=== PATIENT | female | born 1975 | race Caucasian/White ===

== ENCOUNTER 2021-01-05 02:05 | Emergency (ER) | payer OTHER, SELFPAY ==
[2021-01-05 02:10] VITALS: BP 144/74; PULSE 108; RESP 16; TEMP 36.6; O2SAT 98; BMI 39.9
--- NOTE | 2021-01-05 02:18 | XRR_ITS ---
PROCEDURE INFORMATION: Exam: XR Chest Exam date and time: 01/05/2021 2:18 AM Age: 45 years old Clinical indication: Pain; Chest pressure; Patient HX: Chest tightness with tachycardia x 2 days. ; Additional info: Gerard TECHNIQUE: Imaging protocol: XR of the chest. Views: 1 view. COMPARISON: [facility] Chest 2 views 07/24/2017 9:30 AM FINDINGS: Lungs: Mildly hyperaerated lungs consistent with deep inspiratory effort vs reactive airway disease vs mild COPD . Pleural spaces: Unremarkable. No pleural effusion. No pneumothorax. Heart/Mediastinum: Unremarkable. No cardiomegaly. Bones/joints: Unremarkable. XR/XR chest 1V portable [id number] IMPRESSION: Mildly hyperaerated lungs consistent with deep inspiratory effort vs reactive airway disease vs mild COPD .
--- NOTE | 2021-01-05 02:30 | W.ED.ARRPALP ---
HPI - Arrhythmia/Palpitations General: Chief Complaint: Arrhythmia/Palpitations Stated Complaint: heart is racing,chest tightness Time Seen by Provider: 01/05/21 02:19 Source: patient Mode of arrival: ambulatory Limitations: no limitations History of Present Illness: HPI narrative: 45-year-old female states that over the last 2 days she been having some chest tightness along with palpitations. States tonight while laying down her palpitations worsened and she felt anxious and her heart rate was in the 130s. She states that she has been having increased stress she states that she had for family members all of lung cancer 3 years ago while being her sister. She denies any cough or fever. Denies any worsening improving factors. Associated symptoms: Deny nausea or vomiting Review of Systems Const: Denies: fever(s), chills, body aches or change in appetite Eyes: Denies: blurry vision or eye discomfort ENMT: Denies: throat pain or dental pain Card: Reports: chest pain and palpitations Resp: Denies: dyspnea GI: Denies: abdominal pain, nausea, vomiting or diarrhea : Denies: dysuria Musc: Denies: neck pain or back pain Skin/Breast: Denies: rash Neuro: Denies: headache(s) Psych: Denies: depression Diego/Lymph: Denies: easy bruising All/Imm: Denies: urticaria Physical Exam Const: COMMON NORMALS: no acute distress, patient oriented x3 and healthy appearing HENMT: COMMON NORMALS: normocephalic and atraumatic HEAD & SCALP: normocephalic and atraumatic Eye: COMMON NORMALS: Equal, round and reactive pupils present and EOMs intact bilaterally PUPIL: Yes Equal, round and reactive pupils present Neck/C-Spine: COMMON NORMALS: full ROM and supple Chest: COMMONS NORMALS: normal inspection of the chest and normal palpation of entire chest wall Resp: COMMON NORMALS: normal respiratory effort, No retractions, No use of accessory muscles and clear to auscultation bilaterally AUSCULTATION: clear to auscultation bilaterally Cardio: COMMON NORMALS: regular rhythm and No murmurs present (Cardio) RATE: tachycardic RHYTHM: regular rhythm GI: COMMON NORMALS: Normal to inspection, nondistended, normoactive bowel sounds present, Soft to palpation, non-tender and no masses PALPATION: Yes Soft to palpation Extremity: COMMON NORMALS: normal to inspection and full ROM Neuro: COMMON NORMALS: patient oriented x3, moves all extremities and no focal motor deficits Psych: COMMON NORMALS: mental status grossly normal, Normal thought process present and cooperative THOUGHT PROCESS: Normal thought process present Skin: COMMON NORMALS: no rashes or lesions noted and no wounds GENERAL SKIN EXAM: no rashes or lesions noted Course Vital Signs: Vital signs: Vital Signs Temperature 97.8 F 01/05/21 02:10 Pulse Rate 108 H 01/05/21 02:10 Respiratory Rate 16 01/05/21 02:10 Blood Pressure 144/74 01/05/21 02:10 Pulse Oximetry 98 01/05/21 02:10 MDM - Arrhythmia/Palpitations MDM Narrative: Medical decision making narrative: Patient presents here with palpitations could be anxiety. Patient's D-dimer and troponin here are negative. Patient's EKG and x-ray here are normal as well. Has no signs of pulmonary embolism or acute coronary syndrome. She is stable for discharge will place her on Vistaril she is to follow-up with PCP in 3 to 5 days. She is to return if worsening. Lab Data: Labs: Lab Results 01/05/21 01/05/21 01/05/21 Range/Units 02:50 02:50 02:50 WBC 10.4 H (4.0-10.0) 10^3/ uL RBC 4.51 (4.1-5.3) 10^6/u L Hgb 12.2 (11.5-15.3) g/dL Hct 38.1 (37.0-47.0) % MCV 84.5 (81-99) fl MCH 27.1 L (28.0-34.0) pg MCHC 32.0 (30.0-36.0) g/dL RDW 13.0 (12.1-15.1) % Plt Count 342 (130-400) 10^3/c mm MPV 9.2 (7.4-10.4) fL Neut % (Auto) 67.4 % Lymph % (Auto) 23.2 % [place] % (Auto) 5.5 % Eos % (Auto) 3.1 % Baso % (Auto) 0.4 % Neut # (Auto) 7.05 (1.8-7.7) 10^3/u L Lymph # (Auto) 2.4 (0.8-4.8) 10^3/u L [place] # (Auto) 0.6 (0.2-0.9) 10^3/u L Eos # (Auto) 0.3 (0.0-0.8) 10^3/u L Baso # (Auto) 0.0 (0.0-0.1) 10^3/u L Nucleated RBC % (a uto) 0 % Nucleated RBCs # 0.0 /100WBC D-Dimer (0-0.59) ug/mIFE U Sodium 137 (136-145) mmol/L Potassium 3.7 (3.5-5.1) mmol/L Chloride 101 (98-107) mmol/L Carbon Dioxide 22 (22-29) mmol/L Anion Gap 17.7 (5-19) BUN 10 (6-20) mg/dL Creatinine 0.6 (0.5-0.9) mg/dL GFR Calculation 107.6 (90-130) mL/min Glucose 121 H (65-115) mg/dL Calculated Osmolal ity 284 L (285-295) mOsm/k g Calcium 9.1 (8.5-10.5) mg/dL Total Bilirubin 0.9 (0.15-1.2) mg/dL AST 12 (0-32) U/L ALT 13 (0-33) U/L Alkaline Phosphata se 93 (35-105) IU/L Troponin T Baselin e 6 (0-10) ng/L Total Protein 6.8 (6.6-8.7) g/dL Albumin 4.2 (3.5-5.2) g/dL Globulin 2.6 (1.3-4.6) g/dL TSH 3.76 (0.27-4.20) uIU/ mL 01/05/21 Range/Units 02:50 WBC (4.0-10.0) 10^3/ uL RBC (4.1-5.3) 10^6/u L Hgb (11.5-15.3) g/dL Hct (37.0-47.0) % MCV (81-99) fl MCH (28.0-34.0) pg MCHC (30.0-36.0) g/dL RDW (12.1-15.1) % Plt Count (130-400) 10^3/c mm MPV (7.4-10.4) fL Neut % (Auto) % Lymph % (Auto) % [place] % (Auto) % Eos % (Auto) % Baso % (Auto) % Neut # (Auto) (1.8-7.7) 10^3/u L Lymph # (Auto) (0.8-4.8) 10^3/u L [place] # (Auto) (0.2-0.9) 10^3/u L Eos # (Auto) (0.0-0.8) 10^3/u L Baso # (Auto) (0.0-0.1) 10^3/u L Nucleated RBC % (a uto) % Nucleated RBCs # /100WBC D-Dimer 0.53 (0-0.59) ug/mIFE U Sodium (136-145) mmol/L Potassium (3.5-5.1) mmol/L Chloride (98-107) mmol/L Carbon Dioxide (22-29) mmol/L Anion Gap (5-19) BUN (6-20) mg/dL Creatinine (0.5-0.9) mg/dL GFR Calculation (90-130) mL/min Glucose (65-115) mg/dL Calculated Osmolal ity (285-295) mOsm/k g Calcium (8.5-10.5) mg/dL Total Bilirubin (0.15-1.2) mg/dL AST (0-32) U/L ALT (0-33) U/L Alkaline Phosphata se (35-105) IU/L Troponin T Baselin e (0-10) ng/L Total Protein (6.6-8.7) g/dL Albumin (3.5-5.2) g/dL Globulin (1.3-4.6) g/dL TSH (0.27-4.20) uIU/ mL Imaging Data^: CXR: Attestation: I personally reviewed and interpreted this imaging study as follows: Radiologist's impression: [address] [address] XRay Report Signed Patient: Jyoti Magallanes Unit #: [id number] : 1975 Age/Sex: 45 / F ADM Date: 01/05/21 Loc: ER Room/Bed: Attending Dr: Ordering Provider/Ordering MD: Virginia Johnson MD Date of Service: 01/05/21 Procedure(s): XR chest 1V portable [id number] Accession Number(s): [id number] Report Number: [id number] PROCEDURE INFORMATION: Exam: XR Chest Exam date and time: 01/05/2021 2:18 AM Age: 45 years old Clinical indication: Pain; Chest pressure; Patient HX: Chest tightness with tachycardia x 2 days. ; Additional info: Cp TECHNIQUE: Imaging protocol: XR of the chest. Views: 1 view. COMPARISON: [facility] Chest 2 views 07/24/2017 9:30 AM FINDINGS: Lungs: Mildly hyperaerated lungs consistent with deep inspiratory effort vs reactive airway disease vs mild COPD . Pleural spaces: Unremarkable. No pleural effusion. No pneumothorax. Heart/Mediastinum: Unremarkable. No cardiomegaly. Bones/joints: Unremarkable. XR/XR chest 1V portable [id number] IMPRESSION: Mildly hyperaerated lungs consistent with deep inspiratory effort vs reactive airway disease vs mild COPD . Dictated By: Antony Ortega MD Signed By: Antony Ortega MD Signed Date/Time: 01/05/21309 DD/ 0309 EKG Data^: EKG 1: Attestation: I personally reviewed and interpreted this EKG as follows: EKG interpretation date: 01/05/21 EKG interpretation time: 02:18 Interpretation: nsr hr [address] or t wave abnormalties qrs 78 qtc 385 Other EKG comments: Chest X-Ray 01/05/21 02:18 IMPRESSION: Mildly hyperaerated lungs consistent with deep inspiratory effort vs reactive airway disease vs mild COPD . 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
[2021-01-05 02:54] LABS: Basophils % 0.4 %; Eosinophils # 0.3 10^3/uL (0.0-0.8); Eosinophils % 3.1 %; Hematocrit 38.1 % (37.0-47.0); Hemoglobin 12.2 g/dL (11.5-15.3); Lymphocytes # 2.4 10^3/uL (0.8-4.8); Lymphocytes % 23.2 %; Mean Corpuscular Hemoglobin 27.1 pg (28.0-34.0); Mean Corpuscular Volume 84.5 fl (81-99); Mean Platelet Volume 9.2 fL (7.4-10.4); Monocytes # 0.6 10^3/uL (0.2-0.9); Monocytes % 5.5 %; Neutrophils # 7.05 10^3/uL (1.8-7.7); Neutrophils % 67.4 %; Nucleated Red Blood Cells % 0 %; Platelet Count 342 10^3/cmm (130-400); Red Blood Count 4.51 10^6/uL (4.1-5.3); White Blood Count 10.4 10^3/uL (4.0-10.0)
[2021-01-05] MEDS: LORazepam 2 mg/mL INJ 1 mL 1 MG IVP (03:05)
[2021-01-05 03:11] LABS: D Dimer 0.53 ug/mIFEU (0-0.59)
[2021-01-05 03:15] LABS: Troponin(5th) Baseline 6 ng/L (0-10)
[2021-01-05 03:30] LABS: Alanine Aminotransferase 13 U/L (0-33); Albumin Level 4.2 g/dL (3.5-5.2); Alkaline Phosphatase 93 IU/L (35-105); Anion Gap 17.7 (5-19); Aspartate Amino Transferase 12 U/L (0-32); Blood Urea Nitrogen 10 mg/dL (6-20); Calcium 9.1 mg/dL (8.5-10.5); Carbon Dioxide 22 mmol/L (22-29); Chloride 101 mmol/L (98-107); Creatinine Clr Calc Pharmacy 143.7919; Globulin 2.6 g/dL (1.3-4.6); Glomerular Filtration Rate 107.6 mL/min (90-130); Glucose 121 mg/dL (65-115); Osmolality Calculated 284 mOsm/kg (285-295); Potassium 3.7 mmol/L (3.5-5.1); Sodium 137 mmol/L (136-145); Thyroid Stimulating Hormone 3.76 uIU/mL (0.27-4.20); Total Bilirubin 0.9 mg/dL (0.15-1.2); Total Protein 6.8 g/dL (6.6-8.7)
[2021-01-05 04:10] VITALS: BP 138/74
[2021-01-05 04:12] VITALS: BP 138/74; PULSE 92; RESP 16; O2SAT 98
== END 2021-01-05 04:14 | disposition home or self-care (01) ==
PROVIDERS: Emergency Provider Emergency Medicine; PCP Family Medicine
DX: R00.2 Palpitations (principal); R07.9 Chest pain, unspecified
CPT/HCPCS: 71045; 80053; 84443; 84484; 85025; 85378; 96374; 99283; J2060

== ENCOUNTER 2021-05-16 07:55 | Outpatient (CLI) | payer OTHER, SELFPAY ==
[2021-05-16 08:25] VITALS: BP 144/84; PULSE 92; RESP 18; TEMP 36.5; O2SAT 98; BMI 39.9
[2021-05-16 08:47] VITALS: BP 120/77; PULSE 82; RESP 18; TEMP 36.5; O2SAT 98
[2021-05-16 09:47] VITALS: BP 119/75; PULSE 84; RESP 17; TEMP 36.9; O2SAT 97
== END 2021-05-16 07:56 | disposition home or self-care (01) ==
LOC: OPS 07:56
PROVIDERS: PCP Family Medicine; Visit Provider Nurse Practitioner Family
DX: U07.1 COVID-19 (principal)
CPT/HCPCS: 96365

== ENCOUNTER 2022-07-17 13:00 | Outpatient (CLI) | payer BC, SELFPAY | END 2022-07-17 13:01 | disposition home or self-care (01) | LOC: SLEEP 07-18 08:22 | PROVIDERS: PCP Family Medicine; Visit Provider Family Medicine | DX: G47.10 Hypersomnia, unspecified (principal) | CPT/HCPCS: G0399 ==

== ENCOUNTER 2022-07-20 11:28 | Outpatient (CLI) | payer BC, SELFPAY ==
[2022-07-20 11:56] VITALS: BP 121/78; PULSE 88
--- NOTE | 2022-07-20 11:56 | ECG_ITS ---
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 Interpretive Statements NAME OF STUDY: TREADMILL STRESS TEST INDICATION: Chest Pain PROCEDURE: At the baseline, the patient's blood pressure was 126/81 with a heart rate of 83. The baseline electrocardiogram showed normal sinus rhythm with normal ST-Ts. . The patient exercised for 7 minutes and 42 seconds on a standard Jason protocol. Patient attained a maximum heart rate of 148 beats per minute(86% of the maximum predicted heart rate) with a blood pressure at the peak exercise of 200/83 mm Hg. The EKG at the peak exercise revealed no significant changes. Patient did not have any chest pain or any significant cardiac arrhythmias with the exercise During the recovery phase, there were no new changes. Blood pressure at the end of the recovery phase was 121/78 mm Hg with a heart rate of 90 per minute. CONCLUSION: 1. Normal EKG response to treadmill exercise 2. No exercise-induced chest pain or cardiac arrhythmia 3. Fair exercise tolerance, attained a maximum of 10 point METs. 4. Hypertensive response to exercise Electronically Signed On 07-23-2022 23:56:37 CDT by Gerardo Abreu M.D. [email or web address]
[2022-07-20 12:04] VITALS: BMI 39.2
== END 2022-07-20 11:29 | disposition home or self-care (01) ==
PROVIDERS: PCP Family Medicine; Visit Provider Family Medicine
DX: R07.9 Chest pain, unspecified (principal)
CPT/HCPCS: 93017

== ENCOUNTER 2022-09-20 06:10 | Outpatient (CLI) | payer BC, SELFPAY ==
--- NOTE | 2022-09-20 06:30 | USCV_ITS ---
Jyoti Magallanes Age: 47 Gender: F : 1975 Exam Date: 09/20/2022 06:26 Ordering Phys: Truman Hernandez M.D ([email or web address]) Technologist: MAYUR [place] [facility] [place]: MURMUR, CHEST PAIN BP: 144 / 80 HR: 76 Rhythm: Sinus Technical Quality: Adequate MEASUREMENTS (Male / Female) Normal Values 2D ECHO LVOT Diameter 2.0 cm LV Ejection Fraction MOD 2C 61.4 % LV Ejection Fraction 2C AL 61.8 % LA Diameter 2.8 cm LA Width 3.1 cm LA Height 5.2 cm RA Width 3.7 cm RA Height 5.0 cm Aorta at Sinotubular Diameter 2.0 cm IVC Diameter 2.1 cm M-MODE Aortic Annulus Diameter 2.7 cm LA Ao Ratio MM 1.1 MV E Point Septal Separation 0.3 cm DOPPLER AV Peak Velocity 160.3 cm/s LVOT Peak Velocity 107.0 cm/s AV Area Cont Eq vti 2.2 cm squared AV Area Cont Eq pk 2.0 cm squared MV Peak Velocity 126.0 cm/s MV Area PHT 3.1 cm squared Mitral E to A Ratio 1.1 MV E' Velocity 60.0 cm/s Mitral E to MV E' Ratio 8.3 Mitral E to LV E' Lateral Ratio 8.4 Mitral E to LV E' Septal Ratio 8.3 TR Peak Velocity 216.2 cm/s TR Peak Gradient 18.7 mmHg TR Mean Velocity 175.4 cm/s TR Mean Gradient 13.0 mmHg TR Velocity Time Integral 67.2 cm TV Peak E Velocity 65.0 cm/s Right Atrial Pressure 3.0 mmHg Pulmonary Artery Systolic Pressu 21.7 mmHg PV Peak Velocity 110.0 cm/s RV Acceleration Time 0.2 s RV Ejection Time 0.3 s RV AcT/ET 0.6 FINDINGS Left Ventricle Left ventricle is normal size. LV systolic function is normal with EF of 55 to 60%. No regional wall motion abnormalities are seen. Right Ventricle Normal in size and function Right Atrium Normal in size Left Atrium Normal in size Mitral Valve Structurally normal mitral valve. Trace mitral regurgitation. Aortic Valve Structurally normal aortic valve. No significant stenosis or regurgitation. Tricuspid Valve Mild tricuspid regurgitation. Pulmonary artery systolic pressure is normal Pulmonic Valve Not well-visualized Pericardium Normal Aorta Normal in size IVC Appears to be normal CONCLUSIONS LV systolic function is normal with EF of 55 to 60% Trace mitral regurgitation Mild tricuspid regurgitation No comparison studies are available Truman Hernandez MD (Electronically Signed) Final Date: 30 Sep 2022 13:05 S
== END 2022-09-20 06:11 | disposition home or self-care (01) ==
LOC: RAD 06:14
PROVIDERS: PCP Family Medicine; Visit Provider Internal Medicine
DX: R01.1 Cardiac murmur, unspecified (principal)
CPT/HCPCS: 93306

== ENCOUNTER 2023-08-03 10:04 | Outpatient (CLI) | payer BC, SELFPAY ==
--- NOTE | 2023-08-03 10:12 | CT_ITS ---
WS: [id number] CT ABDOMEN NON-CONTRAST PLUS CONTRAST TECHNIQUE: Noncontrast CT of the abdomen and contrast-enhanced CT of the abdomen with coronal and sag ittal reformatted images. CLINICAL INFORMATION: R FLANK PAIN COMPARISON: None. DLP: 3010.[address] scans at [facility] use at least one of these dose optimization techniques: automated e xposure control; mA and/or kV adjustment per patient size (includes targeted exams where dose is matc hed to clinical indication); or iterative reconstruction. FINDINGS: Hepatomegaly. Enlarged RIGHT hepatic lobe with diffuse fatty infiltration. RIGHT hepatic lobe measure s 23.1 cm craniocaudal. Cholecystectomy clips. Normal portal vein and splenic vein. Normal spleen. Sm all to moderate esophageal hiatal hernia. Normal pancreatic parenchymal enhancement. Adrenal glands a re normal. Normal renal parenchymal enhancement. No hydronephrosis. Tiny bilateral renal cysts. Lung bases are well aerated. Bibasilar atelectasis.Mild lumbar curve. Normal caliber abdominal aorta. Mild aortic calcification. IMPRESSION: 1. Marked hepatomegaly with diffuse fatty infiltration. Enlarged RIGHT hepatic lobe. 2. Cholecystectomy clips. 3. Moderate esophageal hernia. 4. No hydronephrosis in either kidney. No obstructing renal or proximal ureteral calculi. Pelvis is not included on this CT abdomen exam. 5. No other acute findings.
[2023-08-03] MEDS: iohexol 350 mg/mL 500 mL Btl (per mL) IV (11:59)
== END 2023-08-03 10:05 | disposition home or self-care (01) ==
LOC: RAD 10:05
PROVIDERS: PCP Family Medicine; Visit Provider Family Medicine
DX: R10.9 Unspecified abdominal pain (principal); K76.0 Fatty (change of) liver, not elsewhere classified; K44.9 Diaphragmatic hernia without obstruction or gangrene
CPT/HCPCS: 74170; Q9967

== ENCOUNTER → 2023-11-30 08:15 | Outpatient (BNVA) | payer BC, SELFPAY | PROVIDERS: PCP Family Medicine; Visit Provider Family Medicine | DX: Z79.899 Other long term (current) drug therapy (principal) | CPT/HCPCS: 80048 ==

== ENCOUNTER → 2024-06-06 08:34 | Outpatient (BNVA) | payer OTHER, SELFPAY | PROVIDERS: PCP Family Medicine; Visit Provider Family Medicine | DX: E11.9 Type 2 diabetes mellitus without complications (principal); E03.9 Hypothyroidism, unspecified; K76.0 Fatty (change of) liver, not elsewhere classified; E78.5 Hyperlipidemia, unspecified; I10 Essential (primary) hypertension | CPT/HCPCS: 80053; 80061; 83036; 84443 ==

== ENCOUNTER 2024-06-13 08:17 | Outpatient (CLI) | payer OTHER, SELFPAY ==
--- NOTE | 2024-06-13 08:22 | XR_ITS ---
WS: [email or web address] Exam: XR cervical spine 3V* [id number] Date/Time of Exam: 06/13/2024 8:23 AM Reason For Exam: cervical radiculopathy No fracture or malalignment. Disc spaces are preserved. Normal paraspinal soft tissues. Unremarkable posterior elements. The odontoid appears normal. XR/XR cervical spine 3V* [id number] IMPRESSION: 1. Normal C-spine study.
--- NOTE | 2024-06-13 08:22 | XR_ITS ---
WS: [email or web address] Exam: [place] [id number] Date/Time of Exam: 06/13/2024 8:23 AM Reason For Exam: tenderness over r scapula, arm numbness No fracture noted. No sign of bone destruction. Articular relationships appear normal. XR/[place] [id number] IMPRESSION: 1. Negative RIGHT scapula
== END 2024-06-13 08:18 | disposition home or self-care (01) ==
LOC: RAD 08:19
PROVIDERS: PCP Family Medicine; Visit Provider Family Medicine
DX: M54.12 Radiculopathy, cervical region (principal); M89.8X1 Other specified disorders of bone, shoulder; R20.0 Anesthesia of skin
CPT/HCPCS: 72040; 73010

== ENCOUNTER → 2024-08-19 08:43 | Outpatient (BNVA) | payer OTHER, SELFPAY | PROVIDERS: PCP Family Medicine; Referring Provider Family Medicine; Visit Provider Student in an Organized Health Care Education/Training Program | DX: G56.03 Carpal tunnel syndrome, bilateral upper limbs (principal) | CPT/HCPCS: 73130 ==

== ENCOUNTER 2024-08-19 11:10 | Outpatient (CLI) | payer OTHER, SELFPAY | END 2024-08-19 11:11 | disposition home or self-care (01) | LOC: SPT 11:10 | PROVIDERS: PCP Family Medicine; Visit Provider Student in an Organized Health Care Education/Training Program | DX: Z46.89 Encounter for fitting and adjustment of other specified devices (principal); G56.03 Carpal tunnel syndrome, bilateral upper limbs | CPT/HCPCS: L3908 ==

== ENCOUNTER 2024-11-16 18:00 | Emergency (ER) | payer OTHER, SELFPAY ==
--- OUTSIDE RECORDS SUMMARY | 2024-11-13 05:15 | XMS_ITS | Encounter Summary ---
Author Organization [facility] Address [address] [place] [address] Care Team Providers Care School Bus Driver/Custodian Name Role Phone Mahnaz Barrientos MD Primary Care Provider Reason for Visit * Auth/Cert (Routine) Specialty Diagnoses / Procedures Referred By Calli rodrigues Referred To Contact Diagnoses Uterine prolapse Uterine prolapse [N81.4] Procedures AZ LAPAROSCOPY TOT HYSTERECTOMY >250 G W/TUBE/OVAR AZ LAPAROSCOPY TOT HYSTERECTOMY >250 G W/TUBE/OVAR AZ LAPS FULG/EXC OVARY VISCERA/PERITONEAL SURFACE AZ LAPAROSCOPY W/RMVL ADNEXAL STRUCTURES AZ LAPS ABD PRTM&OMENTUM DX W/WO SPEC BR/WA SPX AZ LAPS TOTAL HYSTERECT 250 GM/< W/RMVL TUBE/OVARY AZ CYSTOURETHROSCOPY AZ LAPAROSCOPY W TOTAL HYSTERECTOMY UTERUS 250 GM/< Stevenson Dillard MD [address] [address] Phone: tel: fax: Referral ID Status Reason Start Date Expiration Date Visits Re quested Visits Authorized [id number] 10/28/2024 1 1 Encounter Details Date Type Department Care Team (Latest Contact Info) Description 11/13/2024 5:15 AM CDT - 11/13/2024 2:24 PM CDT Hospital Encounter [address] Pre-Op [address] [place] [address] Stevenson Dillard MD [address] [address] Uterine prolapse Discharge Disposition: Home or Self Care Social History Tobacco Use Types Packs/Day Years Used Date Smoking Tobacco: Former Alcohol Use Standard Drinks/Week Comments No 0 (1 standard drink = 0.6 oz pur e alcohol) Feeling Safe Answer Date Recorded Are you in a relationship wi th someone who hurts you emotionally and/or physically? 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 PROFESSOR Gender Identity Not on file Sexual Orientation Not on file documented as of this encounter Last Filed Vital Signs Vital Sign Reading Time Taken Comments Blood Pressure 155/71 11/13/2024 12:40 PM CDT Pulse 86 11/13/2024 12:40 PM CDT Temperature 35.9 C (96.7 F) 11/13/2024 10:40 AM CDT Respiratory Rate 18 11/13/2024 12:4 0 PM CDT Oxygen Saturation 95% 11/13/2024 12: 40 PM CDT Inhaled Oxygen Concentration - - Weight 111.7 kg (246 lb 4.1 oz) 11/13/2024 5:28 AM CDT Height 165.1 cm (5' 5 ) 11/13/2024 5:28 AM CDT Body Mass Index 40.98 11/13/2024 5:28 AM CDT documented in this encounter Discharge Instructions * Discharge Instructions* Mary Jarvis RN - 11/13/2024 10:11 AM CDT NO SMOKING AND AVOID SECOND-HAND SMOKE. Tobacco smoke can delay the healing process by decreasing the oxygen supply to your wound, & may increase your risk of infection. Smoking irritates the breathing passages and increases the risk of pneumonia, bronchitis, asthma and risk of blood clots. YOU ARE URGED TO FOLLOW CAREFULLY THE FOLLOWING INSTRUCTIONS REGARDING ANESTHESIA If you had general or local anesthesia with sedation, please pay particular attention to the following instructions: 1. Do not drink alcoholic beverages-including beer for 24 hours. Alcohol enhances the effects of anesthesia and sedation. 2. Do not drive a motor vehicle, operate machinery or power tools for 24 hours, if a child, no bicycle riding, skateboards, gym sets, etc., for 24 hours. 3. Do not make any important decisions or sign important papers for 24 hours. 4. You may experience lightheadedness, dizziness, and sleepiness following surgery. Please DO NOT STAY ALONE. A responsible adult should be with you for this 24 hour period. 5. Rest at home with moderate activity as tolerated. It may not be necessary to go to bed; however,it is important to rest for 24 hours following general anesthesia. 6. Progress slowly to a regular diet unless your physician has instructed you otherwise. Start withliquids, such as soft drinks, then soup and crackers, gradually working up to solid foods. 7. Certain anesthetics and pain medications may produce nausea and vomiting in certain individuals.If nausea becomes a problem at home, call your physician. In the meantime, rest and sleep on your side to avoid accidentally inhaling material that you may vomit. A CAGE FIGHTER FROM THE SAME DAY SURGERY DEPARTMENT MAY CALL YOU BY TELEPHONE THE NEXT DAY AFTER SURGERY. DO NOT BE ALARMED. THIS IS A ROUTINE CALL TO FIND OUT HOW YOU ARE PROGRESSING AFTER YOUR SURGERY. REGARDING MEDICATIONS: 1. If your physician ordered pain medication, please take it as directed. Do not drive a motor vehicle, operate machinery, or operate power tools while taking this medication. * Attachments The following attachments cannot be sent through Care Everywhere. * Laparoscopic Hysterectomy: Post op (Telugu) documented in this encounter Medications at Time of Discharge oxyCODONE (ROXICODONE) 5 mg tabletIndications:S /P complete hysterectomy Take 1 Tablet (5 mg) by mouth every 6 hours as needed for Pain. Max Daily Amount: 20 mg 20 Tablet 11/13/2024 2:18 PM CDT 11/13/2024 losartan (COZAAR) 100 mg tablet Take 100 mg by mouth daily. estradioL (ESTRACE) 1 mg tablet Take 1 Tablet (1 mg) by mouth daily at bedtime. 90 Tablet 3 05/13/2024 hydroCHLOROthiazide 25 mg tablet Take 25 mg by mouth daily. cetirizine (ZyrTEC) 10 mg tablet Take 10 mg by mouth 1 time daily as needed. metoprolol tartrate (LOPRESSOR) 25 mg tablet Take 25 mg by mouth 2 times daily. lovastatin (MEVACOR) 40 mg tablet Take 40 mg by mouth daily at bedtime. 10/20/2021 levothyroxine 100 mcg tablet 12/01/2019 documented as of this encounter H&P Notes * Stevenson Dillard MD - 11/13/2024 7:06 AM CDT Patient seen and examined No changes to H&P * Stevenson Dillard MD - 11/12/2024 8:20 AM CDT HISTORY OF PRESENT ILLNESS Jyoti Magallanes is a 49 y.o. female admitted with uterine prolapse with a history of moderate cervical dysplasia. Patient is tried a pessary but is interested in surgical intervention. Subjective The history is provided by the patient. REVIEW OF SYSTEMS Negative for chest pain or shortness of breath HISTORY REVIEW I have reviewed and updated Principal Problem: Uterine prolapse Active Problems: Moderate dysplasia of cervix (PRANEETH II) , Past Medical History: Diagnosis Date HTN (hypertension) Melanoma of skin (CMS/HCC) 11/2021 Motion sickness Obstructive sleep apnea , Past Surgical History: Procedure Laterality Date HX CHOLECYSTECTOMY , Family History Problem Relation Name Age of Onset Heart Disease Maternal Grandmother Breast Cancer Neg Hx Negative Response--See Media tab Ovarian Cancer Neg Hx Uterine or Endometrial Cancer, Not Including Cervical Neg Hx Pancreatic Cancer Neg Hx Melanoma Neg Hx Cancer - Other Neg Hx , Social History Socioeconomic History Marital status: Number of children: 2 Tobacco Use Smoking status: Former Substance and Sexual Activity Alcohol use: No Alcohol/week: 0.0 standard drinks of alcohol Drug use: No Social Drivers of Health Transportation Needs: No Transportation Needs (10/28/2024) Transportation Needs Patient needs follow up regarding:: 1 Feeling Safe: Not At Risk (10/28/2024) Feeling Safe Patient has indicated abuse: : No , Allergies Allergen Reactions Clindamycin Other (See Comments) Her throat started to burn Phenazopyridine Hcl Other (See Comments) phenazopyridine hydrochloride , No medications prior to admission. Objective PHYSICAL EXAM Last Vitals: LMP 10/27/2024 Height 5 feet 5 inches In general alert oriented female no acute distress Cardiovascular regular rhythm Lungs clear to auscultation Pelvic uterus normal in size DIAGNOSTICS I have reviewed CBC: Lab Results Component Value Date/Time WBC 8.1 10/28/2024 11:46 AM RBC 4.00 (L) 10/28/2024 11:46 AM HGB 11.7 (L) 10/28/2024 11:46 AM HCT 36.4 10/28/2024 11:46 AM PLT 288 10/28/2024 11:46 AM , BMP: Lab Results Component Value Date/Time GLUCOSE 147 (H) 10/28/2024 11:46 AM NA 141 10/28/2024 11:46 AM K 3.8 10/28/2024 11:46 AM CL 107 10/28/2024 11:46 AM CO2 22 10/28/2024 11:46 AM BUN 15 10/28/2024 11:46 AM CREAT 0.74 10/28/2024 11:46 AM CA 8.7 10/28/2024 11:46 AM Assessment ASSESSMENT/PLAN: Principal Problem: Uterine prolapse Active Problems: Moderate dysplasia of cervix (PRANEETH II) Patient admitted for a total laparoscopic hysterectomy and bilateral salpingo- oophorectomy. Risk benefits complication alternatives reviewed. Risk complications include but are not limited to the risk of infection, bleeding, transfusion, damage to bowel, bladder, ureter, and other organs of the abdomen or pelvis. Pelvic rest for minimum of 8 weeks is required to reduce risk of vaginal cuff dehiscence and patient sent to this. Consents have been reviewed and signed. Patient is comfortable with plan. Desires to proceed. documented in this encounter OR Notes * Dodie-OP - Jannette Rosa RN - 11/13/2024 10:09 AM CDT Pt is A&O x4. Pain medications provided during time in PACU. Pt has nausea without emesis so Zofran given. Pt will be transitioned to phase II post op in stable condition. * Operative Report - Stevenson Dillard MD - 11/13/2024 9:16 AM CDT Procedure Note Procedure(s): Total laparoscopic hysterectomy with bilateral salpingo-oophorectomy Surgeon: Surgeon(s) and Role: Stevenson Dillard MD- Primary Anesthesia: General endotracheal Pre-op Dx: 1. Uterine prolapse 2. Moderate dysplasia of the cervix Post-op Dx: Same Findings: Normal pelvis The patient was taken to the operating room where she underwent induction of general anesthesia. The appropriate time out was performed. She was then placed in low lithotomy and exam under anesthesiawas performed. She was prepped and draped in the usual sterile fashion and a bush was placed into the bladder. A speculum was placed into the vagina and the cervix was grasped with a single tooth tenaculum. The uterus was sounded to approximate the uterine size. The cervix was dilated and then suture was placed through the posterior cervix and tied. The tenaculum removed and the V-care was then placed in the vagina for uterine manipulation and the colpo-ring was placed adjacent to the cervicova ginal junction. The speculum was removed. Gloves were changed and attention then turned abdominallywhere an incision was made in the umbilicus using the scalpel a 5 mm umbilical incision was made and a 5 mm optical trocar was placed under direct visualization. CO2 was then used for insufflation with good pressures noted up to 15 mmHg. The abdomen and pelvis were examined and the above findings were noted. The patient was placed in trendelenburg. Incisions were made in the right and left lower quadrants an additional 5 mm port was placed in the right and a 10/11 mm port was placed in the leftlower quadrant under direct visualization of the laparoscope. The left fallopian tube was grasped and the Infundibulopelvic ligament was/were cauterized and transected using the [place] ligasure, this was taken down through the round ligament, through the broad ligament and to the level of the uterine arteries. The anterior leaf of the broad ligament was then transected with the ligasure and carried across the anterior cervix to form the bladder flap. The right fallopian tube was grasped and the Infundibulopelvic ligament was/were cauterized and transected using the ligasure, and this was taken down through the round ligament, through the broad ligament to the level of the uterine arteries. The bladder flap was further developed and the bladder dissected off the anterior cervix using theligasure and the Sonocision. Once the bladder was adequately out of the way, the uterine arteries were cauterized and transected bilaterally using the ligasure. Once the major blood supply to the uterus had been desiccated and transected, the anterior colpotomy incision was made using the Sonocision. The Sonocision was used circumferentially to cauterize and transect around the cervico-vaginal vega ction to detach the entire uterus from its vaginal pedicles. Attention was then turned vaginally where the uterus with bilateral fallopian tubes and bilateral ovary(s) was/were removed through the colpotomy incision. The vaginal cuff was then closed with 0 V-loc in a running fashion incorporating the uterosacral ligaments bilaterally using the Endo stitch. There was adequate hemostasis at all surgical sites. Irrigation was performed and good hemostasis was again noted at all pedicles. Pressure was decreased to 4-6 mmHg and hemostasis again confirmed. the CO2 was suctioned from the abdominal cavity. All of the ports were removed. The left lower quadrant fascial incision was examined and , the skin incision was closed with 4-0 vicryl in a subcuticular fashion. All of the incisions were closed with skin glue. The patient was taken to recovery in good condition. Estimated Blood Loss: 20 mL Drains: NONE Specimens: Uterus, cervix, bilateral fallopian tubes and ovaries Implants: NONE Complications: None Disposition: to recovery room Condition: stable Stevenson Dillard MD documented in this encounter Plan of Treatment Upcoming Encounters Date Type Department Care Team (Late st Contact Info) Description 12/17/2024 2:15 PM CDT Office Visit [address] [place] [address] Stevenson Dillard MD [address] [facility] [address] [place] [phone] 06/15/2025 1:30 PM FOREIGN LANGUAGES PROFESSOR Office Visit [facility] [address] [place] [address] Stevenson Dillard MD [address] [place] [address] 07/17/2025 9:00 AM FOREIGN LANGUAGES PROFESSOR Appointment [facility] [address] [place] [address] Stevenson Dillard MD [address] [place] [address] Pending Results Name Type Priority Associated Diagnoses Date /Time PATHOLOGY Pathology Pathology Uterine prolapse 11/13/2024 8:42 AM CDT Scheduled Orders Name Type Priority Associated Diagnoses Orde r Schedule PATHOLOGY Pathology Pathology Uterine prolapse Release Upon Ordering for 1 Occurrences starting 11/13/2024, 1 completed documented as of this encounter Procedures Procedure Name Priority Date/Time Associated Diagnosis Comments PROCEDURE PHOTOGRAPHS 11/16/2024 4:39 PM CDT TELEMETRY REPORT 11/16/2024 4:39 PM CDT POC GLUCOSE Routine 11/13/2024 9:16 AM CDT POC , URINE Routine 11/13/2024 5:54 AM CDT documented in this encounter Results * PROCEDURE PHOTOGRAPHS (11/16/2024 4:39 PM CDT) us Provider Scanning PROCEDURE/MINOR SURGICAL ORDER PRABHJOT Final Result * TELEMETRY REPORT (11/16/2024 4:39 PM CDT) us Provider Scanning ECG ORDERABLES Final Result * (ABNORMAL) POC GLUCOSE (11/13/2024 9:16 AM CDT) GLUCOSE POC 154(H) 74 - 99 mg/dL 11/13/2024 9:16 AM CDT [facility] SPECIMEN SOURCE, GLUCOSE POC Capillary 11/13/2024 9:16 AM CDT [facility] Blood, whole 11/13/2024 9:16 AM CDT 11/13/2024 9:23 AM CDT Stevenson Dillard MD POINT OF CARE TESTING Final Result Performing Organization Address [facility] de Phone Number [facility] CLIA # [id number] [address] [address] * POC , URINE (11/13/2024 5:54 AM CDT) HCG QUAL URINE Negative Negative 11/13/2024 5:54 AM CDT [facility] Urine 11/13/2024 5:54 AM CDT 11/13/2024 5:45 AM CDT Narrative [facility] - 11/13/2024 5:54 AM CDT Positive : Result is greater than or equal to 25 mIU/mL Negative: Result is less than 25 mIU/mL Invalid: Result is borderline or indeterminate,send to lab for serum test methodology. 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) Moderate dysplasia of cervix documented in this encounter Admitting Diagnoses Diagnosis Uterine prolapse Uterine prolapse without mention of vaginal wall prolapse documented in this encounter Administered Medications Inactive Administered Medications - up to 3 most recent administrations Medication Order MAR Action Action Date Dose Rate Site diphenhydrAMINE (BENADRYL) injection 12.5 mg 12.5 mg, IV, POST-PROCEDURE ONCE, 1 dose, Starting on Francesca 11/13/24 at 1019, Until Francesca 11/13/24 at 1101, Stat Given 11/13/2024 11:01 AM CDT 12.5 mg fentaNYL PF (SUBLIMAZE) 50 mcg/mL injection 50 mcg 50 mcg, IV, POST-PROCEDURE Q 3 MINUTES PRN, 5 doses, Starting on Francesca 11/13/24 at 0708, Until Francesca 11/13/24 at 2113, Pain, Mild, Pain, Moderate, Routine, PACU Given 11/13/2024 9:36 AM CDT 50 mcg Given 11/13/2024 9:31 AM CDT 50 mcg HYDROmorphone (PF) (DILAUDID) injection 0.5 mg 0.5 mg, IV, POST-PROCEDURE Q 5 MINUTES PRN, 5 doses, Starting on Francesca 11/13/24 at 0708, Until Francesca 11/13/24 at 2113, Pain, Severe, Routine, PACU ibuprofen (MOTRIN) tablet 600 mg 600 mg, Oral, POST-PROCEDURE ONCE, 1 dose, Starting on Francesca 11/13/24 at 1355, Until Francesca 11/13/24 at 1401, Stat Given 11/13/2024 2:01 PM CDT 600 mg lactated ringers infusion IV, at 75 mL/hr, CONTINUOUS, Starting on Francesca 11/13/24 at 0530, Until Francesca 11/13/24 at 211, Stat, Pre-op New Bag 11/13/2024 7:20 AM CDT lactated ringers infusion IV, at 125 mL/hr, POST-PROCEDURE CONTINUOUS, Starting on Francesca 11/13/24 at 0715, Until Francesca 11/13/24 at 211, Routine, PACU naloxone (NARCAN) 0.4 mg/mL injection 0.1-0.4 mg 0.1-0.4 mg, IV, SEE ADMIN INSTRUCTIONS, Starting on Francesca 11/13/24 at 0708, Until Francesca 11/13/24 at 2113, Routine, PACU ondansetron (ZOFRAN) 4 mg/2 mL injection 4 mg 4 mg, IV, POST-PROCEDURE ONCE PRN, 1 dose, Starting on Francesca 11/13/24 at 0708, Until Francesca 11/13/24 at 0955, Nausea/Emesis, Routine, PACU Given 11/13/2024 9:55 AM CDT 4 mg prochlorperazine (COMPAZINE) injection 5 mg 5 mg, IV, POST-PROCEDURE ONCE, 1 dose, Starting on Francesca 11/13/24 at 1018, Until Francesca 11/13/24 at 1024, Stat Given 11/13/2024 10:24 AM CDT 5 mg sodium chloride flush injection 10 mL 10 mL, IV, SEE ADMIN INSTRUCTIONS, Starting on Francesca 11/13/24 at 0526, Until Francesca 11/13/24 at 2114, Routine, Pre-op documented in this encounter Active and Recently Administered Medications Times are shown in CDT. Scheduled Medication Order 11/11/2024 11/12/2024 11/13/2024 diphenhydrAMINE (BENADRYL) injection 12.5 mg (COMPLETED) 12.5 mg, IV, POST-PROCEDURE ONCE, 1 dose, Starting on Francesca 11/13/24 at 1019, Until Francesca 11/13/24 at 1101, Stat 1101 (Given - Provid er: Mary Jarvis RN) ibuprofen (MOTRIN) tablet 600 mg (COMPLETED) 600 mg, Oral, POST-PROCEDURE ONCE, 1 dose, Starting on Francesca 11/13/24 at 1355, Until Francesca 11/13/24 at 1401, Stat 1401 (Given - Provid er: Mary Jarvis RN) naloxone (NARCAN) 0.4 mg/mL injection 0.1-0.4 mg 0.1-0.4 mg, IV, SEE ADMIN INSTRUCTIONS, Starting on Francesca 11/13/24 at 0708, Until Francesca 11/13/24 at 2114, Routine, PACU prochlorperazine (COMPAZINE) injection 5 mg (COMPLETED) 5 mg, IV, POST-PROCEDURE ONCE, 1 dose, Starting on Francesca 11/13/24 at 1018, Until Francesca 11/13/24 at 1024, Stat 1024 (Given - Provid er: Mary Jarvis RN) sodium chloride flush injection 10 mL 10 mL, IV, SEE ADMIN INSTRUCTIONS, Starting on Francesca 11/13/24 at 0526, Until Francesca 11/13/24 at 2114, Routine, Pre-op Continuous Medication Order 11/11/2024 11/12/2024 11/13/2024 lactated ringers infusion IV, at 75 mL/hr, CONTINUOUS, Starting on Francesca 11/13/24 at 0530, Until Francesca 11/13/24 at 2114, Stat, Pre-op 0720 (New Bag - Prov ider: VERONA Ventura)0916 (Fluid Volume - Provider: VERONA Ventura)2113 (Due: Order Ending - Provider: PROVIDER, DISCHARGE PATIENT - Comment: [Order ends at this time. Document the following action when infusion is complete: Stopped]) lactated ringers infusion IV, at 125 mL/hr, POST-PROCEDURE CONTINUOUS, Starting on Francesca 11/13/24 at 0715, Until Francesca 11/13/24 at 2114, Routine, PACU 0715 (Due) PRN Medication Order 11/11/2024 11/12/2024 11/13/2024 fentaNYL PF (SUBLIMAZE) 50 mcg/mL injection 50 mcg 50 mcg, IV, POST-PROCEDURE Q 3 MINUTES PRN, 5 doses, Starting on Francesca 11/13/24 at 0708, Until Francesca 11/13/24 at 2114, Pain, Mild, Pain, Moderate, Routine, PACU 0931 (Given - Provid er: Jannette Rosa RN)0936 (Given - Provider: Jannette Rosa RN) HYDROmorphone (PF) (DILAUDID) injection 0.5 mg 0.5 mg, IV, POST-PROCEDURE Q 5 MINUTES PRN, 5 doses, Starting on Francesca 11/13/24 at 0708, Until Francesca 11/13/24 at 2114, Pain, Severe, Routine, PACU ondansetron (ZOFRAN) 4 mg/2 mL injection 4 mg (COMPLETED) 4 mg, IV, POST-PROCEDURE ONCE PRN, 1 dose, Starting on Francesca 11/13/24 at 0708, Until Francesca 11/13/24 at 0955, Nausea/Emesis, Routine, PACU 0955 (Given - Provid er: Jannette G Rosa, RN) oxyCODONE (ROXICODONE) tablet 5 mg 5 mg, Oral, EVERY 6 HOURS PRN, Starting on Francesca 11/13/24 at 0914, Until Francesca 11/13/24 at 2114, Pain (See admin instructions), Routine documented in this encounter Care Teams School Bus Driver/Custodian Relationship Specialty Start Date End Date Mahnaz Barrientos MD [address] [facility] [address] [place] [id number] PCP - General Family Practice 02/07/24 documented as of this encounter
--- OUTSIDE RECORDS SUMMARY | 2024-11-13 07:20 | XMS_ITS | Encounter Summary ---
Author Organization [facility] Address [address] [place] [address] Care Team Providers Care Cartoon Designer Name Role Phone Mahnaz Barrientos MD Primary Care Provider Reason for Visit * Auth/Cert (Routine) Specialty Diagnoses / Procedures Referred By Calli rodrigues Referred To Contact Diagnoses Uterine prolapse Uterine prolapse [N81.4] Procedures OH LAPAROSCOPY TOT HYSTERECTOMY >250 G W/TUBE/OVAR OH LAPAROSCOPY TOT HYSTERECTOMY >250 G W/TUBE/OVAR OH LAPS FULG/EXC OVARY VISCERA/PERITONEAL SURFACE OH LAPAROSCOPY W/RMVL ADNEXAL STRUCTURES OH LAPS ABD PRTM&OMENTUM DX W/WO SPEC BR/WA SPX OH LAPS TOTAL HYSTERECT 250 GM/< W/RMVL TUBE/OVARY OH CYSTOURETHROSCOPY OH LAPAROSCOPY W TOTAL HYSTERECTOMY UTERUS 250 GM/< Stevenson Dillard MD [address] [address] Phone: tel: fax: Referral ID Status Reason Start Date Expiration Date Visits Re quested Visits Authorized [id number] 10/28/2024 1 1 Encounter Details Date Type Department Care Team (Late st Contact Info) Description 11/13/2024 7:20 AM CDT - 11/13/2024 9:44 AM CDT Surgery [facility] Operating Room [address] [place] [address] Stevenson Dillard MD [address] [address] HYSTERECTOMY TOTAL LAPAROSCOPIC Social History Tobacco Use Types Packs/Day Years [...] on file Legal Sex Female 5:44 AM EXTRUSION SUPERVISOR Gender Identity Not on file Sexual Orientation Not on file documented as of this encounter Last Filed Vital Signs Vital Sign Reading Time Taken Comments Blood Pressure 139/80 11/13/2024 9:35 AM CDT Pulse 65 11/13/2024 9:40 AM CDT Temperature 36.3 C (97.4 F) 11/13/2024 9:13 AM CDT Respiratory Rate 10 11/13/2024 9:40 AM CDT Oxygen Saturation 100% 11/13/2024 9:40 AM CDT Inhaled Oxygen Concentration - - Weight [...] inhaling material that you may vomit. A OPERATING ENGINEER APPRENTICE FROM THE SAME DAY SURGERY DEPARTMENT MAY [...] Care Everywhere. * Laparoscopic Hysterectomy: Post op (Persian) documented in this encounter Medications at Time [...] Description 12/17/2024 2:15 PM CDT Office Visit [facility] OBN-Isabela [address] [id number] Stevenson Dillard MD [address] [facility] [address] [place] [phone] 06/15/2025 1:30 PM EXTRUSION SUPERVISOR Office Visit [facility] OBGYN-Isabela [address] [place] [address] Stevenson Dillard MD [address] [place] [address] 07/17/2025 9:00 AM EXTRUSION SUPERVISOR Appointment [facility] [address] [place] [address] Stevenson Dillard MD [address] [place] [address] Pending Results Name Type Priority [...] - 99 mg/dL 11/13/2024 9:16 AM CDT [facility] SPECIMEN SOURCE, GLUCOSE POC Capillary 11/13/2024 9:16 AM CDT [facility] Blood, whole 11/13/2024 9:16 AM CDT 11/13/2024 9:23 AM CDT Stevenson Dillard MD POINT OF CARE TESTING Final Result Performing Organization Address [facility] de Phone Number [facility] CLIA # [id number] [address] [address] * POC , URINE (11/13/2024 5:54 AM CDT) HCG QUAL URINE Negative Negative 11/13/2024 5:54 AM CDT [facility] Urine 11/13/2024 5:54 AM CDT 11/13/2024 5:45 AM CDT Narrative [facility] - 11/13/2024 5:54 AM CDT Positive : Result is greater than or equal to 25 mIU/mL Negative: Result is less than 25 mIU/mL Invalid: Result is borderline or indeterminate,send to lab for serum test methodology. Stevenson Dillard MD POINT OF CARE TESTING Final Result Performing Organization Address [facility] de Phone Number [facility] CLIA # [id number] [address] [address] documented in this encounter Visit Diagnoses Diagnosis Uterine prolapse- Primary Uterine prolapse without mention of vaginal wall prolapse Uterine prolapse Uterine prolapse without mention of vaginal wall prolapse S/P complete hysterectomy Acquired absence of both cervix and uterus Moderate dysplasia of cervix (PRANEETH II) Moderate dysplasia of cervix Uterine prolapse Uterine prolapse without mention of vaginal wall prolapse documented in this encounter Admitting Diagnoses Diagnosis [...] 11/13/24 at 0708, Until Francesca 11/13/24 at 211, Pain, Mild, Pain, Moderate, Routine, PACU Given [...] Until Francesca 11/13/24 at 2114, Routine, PACU ondansetron (ZOFRAN) 4 mg/2 mL [...] Routine documented in this encounter Care Teams Cartoon Designer Relationship Specialty Start Date End Date Mahnaz Barrientos MD [address] [facility] [address] [place] [address] PCP - General Family Practice 02/07/24 documented as of this encounter
--- OUTSIDE RECORDS SUMMARY | 2024-11-13 07:20 | XMS_ITS | Encounter Summary ---
Author Organization [facility] Address [address] [place] [address] Care Team Providers Care Manometer Technician Name Role Phone Mahnaz Barrientos MD Primary Care Provider Reason for Visit * Auth/Cert (Routine) Specialty Diagnoses / Procedures Referred By Clali t Referred To Contact Diagnoses Uterine prolapse Uterine prolapse [N81.4] Procedures NH LAPAROSCOPY TOT HYSTERECTOMY >250 G W/TUBE/OVAR NH LAPAROSCOPY TOT HYSTERECTOMY >250 G W/TUBE/OVAR NH LAPS FULG/EXC OVARY VISCERA/PERITONEAL SURFACE NH LAPAROSCOPY W/RMVL ADNEXAL STRUCTURES NH LAPS ABD PRTM&OMENTUM DX W/WO SPEC BR/WA SPX NH LAPS TOTAL HYSTERECT 250 GM/< W/RMVL TUBE/OVARY NH CYSTOURETHROSCOPY NH LAPAROSCOPY W TOTAL HYSTERECTOMY UTERUS 250 GM/< Stevenson Dillard MD [facility] [address] [address] Phone: tel: fax: Referral ID Status Reason Start Date Expiration Date Visits Re quested Visits Authorized [id number] 10/28/2024 1 1 Encounter Details Date Type Department Care Team (Late st Contact Info) Description 11/13/2024 7:20 AM CDT Anesthesia Event [facility] Operating Room [address] [place] [address] Hong Estrada DO [address] [place] [address] Anesthesia Record Procedure Summary Procedure Name Responsible Anesthesiologist Anesthesia Start Time Anesthesia Stop Time HYSTERECTOMY TOTAL LAPAROSCOPIC (Abdomen) Hong EstradaDO 11/13/24 0720 11/13/24 0916 Events Date Time Event Comment 11/13/2024 0654 AN Equip Check Anesthesia eq uipment and materials checked in accordance with local policy. 0708 0720 An Start 0720 An Start Data 0720 In Room This event disp lays the In Room time documented in the Surgical Log. Deleting this event will not remove it from the log but will remove it from the Grid and Graph timeline. 0727 Pre-Induction Immediate pre- induction anesthetic assessment performed. Vital signs as noted on graphic. 0727 An Induction 0730 An Intubation 0748 Anesthesia Ready 0759 Procedure Start This event d isplays the Procedure Start time documented in the Surgical Log. Deleting this event will not remove it from the log but will remove it from the Grid and Graph timeline. 0900 Procedure Stop This event di splays the Procedure Stop time documented in the Surgical Log. Deleting this event will not remove it from the log but will remove it from the Grid and Graph timeline. 0910 An Extubation Emergence unev entful Awake, spontaneous respirations. Adequate muscle strength demonstrated Adequate tidal volume. Orapharynx suctioned. Extubated with positive pressure ventilation. 0911 an stop data 0911 Out of Room This event disp lays the Out of Room time documented in the Surgical Log. Deleting this event will not remove it from the log but will remove it from the Grid and Graph timeline. 0916 An Stop 0916 Hand-off to Receiving Clinic jon Meds Name Total propofol (DIPRIVAN) 10 mg/mL injection 180 mg lidocaine PF (XYLOCAINE MPF) 2% injectio n 3 mL rocuronium (ZEMURON) 10mg/mL injection 5 0 mg fentaNYL (SUBLIMAZE) PF 50 mcg/mL injection 100 mcg midazolam (VERSED) 1 mg/mL injection 2 mg ketamine (KETALAR) 100 mg/mL injection 25 mg acetaminophen (OFIRMEV) 1000 mg/100 mL I V 1,000 mg lidocaine (XYLOCAINE) 4% laryngotracheal solution 4 mL ceFAZolin (ANCEF) 1000 mg vial 2,000 mg dexamethasone (DECADRON) 4 mg/mL injecti on 8 mg ondansetron (ZOFRAN) 4 mg/2 mL injection 4 mg phenylephrine 1 mg/10 mL (100 mcg/mL) sy ringe 100 mcg glycopyrrolate (ROBINUL) 0.2 mg/mL injec tion 0.4 mg hydromorPHONE PF (DILAUDID) 2 mg/mL inje ction 2 mg sugammadex (BRIDION) 100 mg/mL injection 200 mg ketorolac (TORADOL) 30 mg/mL injection 15 mg lactated ringers infusion 600 mL * Agents Name Air O2 O2 * Blood No blood administrations on file. Lines, Drains, and Airways Type Details Placement Removal Wound 11/13/24; 0910; 1; perineum; surgical 11/13/24 0910 by Jannette Rosa RN Indwelling Urethral Catheter 11/13/24; Indwelling double lumen catheter; 11/13/24; 1310 11/13/24 0000 by Jannette Rosa RN 11/13/24 1310 by Mary Jarvis RN Peripheral IV Pre-Hospital Start: No; Orientation: Right; Location: Hand; Device: Angiocath; Gauge: 20 gauge; Needle Length: 1 in length; Insertion Attempts: 1; Patient Tolerance: tolerated well; Removal Indication: no longer indicated; Removal Interventions: direct pressure 11/13/24 0557 by Erika Andino, PCT 11/13/24 1400 by Mary Jarvis RN Endotracheal Airway Type: ETT; Size: 7; Attempts: 1; Verification: Auscultated bilateral breath sounds, Equal chest movement, Continuous waveform capnography 11/13/24 0730 by Peg Finney AA-C 11/13/24 0910 by Peg Finney AA-C Incision 11/13/24; 0806; surgical incision; Bilateral; abdomen; 11/14/24; 0714 11/13/24 0806 by Dawna Hendrickson RN 11/14/24 0714 by PROVIDER, DISCHARGE PATIENT documented in this encounter Social History Tobacco Use Types Packs/Day Years [...] on file Legal Sex Female 5:44 AM CLASSIFICATION OFFICER Gender Identity Not on file Sexual Orientation Not on file documented as of this encounter OR Notes * Anesthesia Postprocedure Evaluation - Hong Estrada DO - 11/13/2024 10:07 AM CDT Post Anesthesia Evaluation Vitals: Vitals Value Taken Time BP 118/72 11/13/24 0955 Temp 36.3 ??C 11/13/24 09 Resp 10 11/13/24 09 SpO2 92 % 11/13/24 09 Pulse 66 11/13/24 09 Heart Rate 67 bpm 11/13/24 09 Pain controlled. Stable cardiovascular and respiratory status. Appropriate mental status. Overall clinical condition satisfactory relative to the procedure performed and patient's comorbidities. No apparent anesthesia complications. Anesthesia Post Evaluation No notable events documented. Hong Estrada DO * Anesthesia Handoff - Peg Finney AA-C - 11/13/2024 9:16 AM CDT Post-Anesthetic transfer of care report elements to appropriate post-anesthesia recovery environment completed in accordance with procedure. I completed my handoff to the receiving nurse during which we: 1. Identified the patient 2. Identified the responsible provider 3. Reviewed the pertinent medical history 4. Discussed the surgical course 5. Reviewed intra-op anesthesia management and issues during anesthesia 6. Set expectations for post-procedure period 7. Orders as necessary and appropriate for continuation of care are present in Epic. 8. Allowed opportunity for questions and acknowledgement of understanding. Vital Signs: Vitals Value Taken Time BP 130/72 11/13/24 0913 Temp 36.3 ??C 11/13/24 0913 Resp 19 11/13/24 0913 SpO2 100 % 11/13/24 09 Pulse 69 11/13/24 09 Heart Rate 68 bpm 11/13/24 0915 Vitals shown include unfiled device data. 9:16 AM VERONA Ventura * Anesthesia Procedure Notes - Peg Finney AA-C - 11/13/2024 7:40 AM CDT Associated Order(s): Airway Airway Date/Time: 11/13/2024 7:30 AM Location: OR Plan: elective intubation Patient Identity Confirmed by: Verbally with patient and armband Airway: not difficult Staffing Performed: COLORIST DYER/CAA Authorized by: Hong Estrada DO Performed by: Peg Finney AA-C Indications and Patient Condition: Indications for Airway Management: Anesthesia Sedation Level: general anesthesia Preoxygenated: yes Patient Position: Sniffing Mask Difficulty Assessment: 1 - vent by mask Plan to extubate at end of case: Yes Final Airway Details: Final Airway Type: Endotracheal airway ETT Cuffed: Yes Cuff Volume (mL): 10 Technique Used for Successful ETT Placement: Direct laryngoscopy Devices/Methods Used in Placement: Intubating stylet and LTA Blade Type: curved blade Blade Size: 3 Insertion Site: Oral ETT Size (mm): 7.0 Measured from: Teeth ETT to Teeth (cm): 22 Tube secured with: Tape Placement Verified by: auscultation, end tidal CO2 and chest rise Cormack-Lehane Classification: Grade I - full view of glottis Number of Attempts at Approach: 1 Additional Procedure Information: atraumatic and dentition unchanged * Anesthesia Preprocedure Evaluation - Hong Estrada DO - 11/13/2024 7:08 AM CDT Anesthesia Evaluation Anesthesia Plan ASA Final: 3 General Preanesthesia Evaluation Jyoti Magallanes is a 49 y.o. female Date: 11/13/2024 Time: 7:08 AM Interview: Holding Discussed with: patient Preoperative Diagnosis Uterine prolapse [N81.4] Scheduled Procedure HYSTERECTOMY TOTAL LAPAROSCOPIC NPO: >8 hours Allergies Allergen Reactions Clindamycin Other (See Comments) Her throat started to burn Phenazopyridine Hcl Other (See Comments) phenazopyridine hydrochloride Past Medical History: Diagnosis Date HTN (hypertension) Melanoma of skin (CMS/HCC) 11/2021 Motion sickness Obstructive sleep apnea Past Surgical History: Procedure Laterality Date HX CHOLECYSTECTOMY No current facility-administered medications on file prior to encounter. Current Outpatient Medications on File Prior to Encounter Medication Sig Dispense Refill losartan (COZAAR) 100 mg tablet Take 100 mg by mouth daily. estradioL (ESTRACE) 1 mg tablet Take 1 Tablet (1 mg) by mouth daily at bedtime. 90 Tablet 3 hydroCHLOROthiazide 25 mg tablet Take 25 mg by mouth daily. metoprolol tartrate (LOPRESSOR) 25 mg tablet Take 25 mg by mouth 2 times daily. lovastatin (MEVACOR) 40 mg tablet Take 40 mg by mouth daily at bedtime. levothyroxine 100 mcg tablet medroxyPROGESTERone (PROVERA) 10 mg tablet TAKE 1 TABLET BY MOUTH EVERY DAY ON calender DAYS 1-10 30 Tablet 3 progesterone micronized (Prometrium) 100 mg Capsule Take 1 Capsule (100 mg) by mouth daily at bedtime. 90 Capsule 3 cetirizine (ZyrTEC) 10 mg tablet Take 10 mg by mouth 1 time daily as needed. Physical Exam: Airway Class: II (soft palate, uvula, fauces visible) Dentition: fair Pulmonary: clear to auscultation, no wheezes or rales, and unlabored breathing Cardiac: regular rate and rhythm, S1, S2 normal, no murmur, click, rub or gallop Neuro: alert Pertinent lab: Results for orders placed or performed during the hospital encounter of 11/13/24 (from the past 24 hours) POC , URINE Result Value Ref Range HCG QUAL URINE Negative Negative Pertinent lab: Lab Results Component Value Date/Time WBC 8.1 10/28/2024 11:46 AM HGB 11.7 (L) 10/28/2024 11:46 AM HCT 36.4 10/28/2024 11:46 AM PLT 288 10/28/2024 11:46 AM MCV 91.0 10/28/2024 11:46 AM Lab Results Component Value Date/Time NA 141 10/28/2024 11:46 AM K 3.8 10/28/2024 11:46 AM CL 107 10/28/2024 11:46 AM CO2 22 10/28/2024 11:46 AM CA 8.7 10/28/2024 11:46 AM BUN 15 10/28/2024 11:46 AM CREAT 0.74 10/28/2024 11:46 AM GLUCOSE 147 (H) 10/28/2024 11:46 AM TOTALPROTEIN 6.9 10/28/2024 11:46 AM ALBUMIN 3.7 10/28/2024 11:46 AM BILITOTAL 0.7 10/28/2024 11:46 AM ALKPHOS 89 10/28/2024 11:46 AM AST 14 10/28/2024 11:46 AM ALT 20 10/28/2024 11:46 AM ANIONGAP 12 10/28/2024 11:46 AM The risks and benefits of the proposed anesthetic have been discussed. The patient has agreed to General with General as a backup. Anesthesia guideline orders initiated. Hong Estrada DO documented in this encounter Plan of Treatment Upcoming Encounters Date Type Department Care Team (Late st Contact Info) Description 12/17/2024 2:15 PM CDT Office Visit [address] [place] [address] Stevenson Dillard MD [address] [facility] [address] [place] [address] 06/15/2025 1:30 PM CLASSIFICATION OFFICER Office Visit [address] [place] [address] Stevenson Dillard MD [address] [facility] [address] [place] [address] 07/17/2025 9:00 AM CLASSIFICATION OFFICER Appointment [facility] [address] [facility] [address] [place] [address] Stevenson Dillard MD [address] [facility] [address] [place] [address] documented as of this encounter Procedures Procedure Name Priority Date/Time Associated Diagnosis Comments NH ANES INSERT ENDOTRACHEAL AIRWAY Routine 11/13/2024 7:30 AM CDT documented in this encounter Results * NH ANES INSERT ENDOTRACHEAL AIRWAY (11/13/2024 7:30 AM CDT) Narrative Peg Finney AA-C - 11/13/2024 7:30 AM CDT Peg Finney AA-C 11/13/2024 7:40 AM Airway Date/Time: 11/13/2024 7:30 AM Location: OR Plan: elective intubation Patient Identity Confirmed by: Verbally with patient and armband Airway: not difficult Staffing Performed: COLORIST DYER/CAA Authorized by: Hong Estrada DO Performed by: Peg Finney AA-C Indications and Patient Condition: Indications for Airway Management: Anesthesia Sedation Level: general anesthesia Preoxygenated: yes Patient Position: Sniffing Mask Difficulty Assessment: 1 - vent by mask Plan to extubate at end of case: Yes Final Airway Details: Final Airway Type: Endotracheal airway ETT Cuffed: Yes Cuff Volume (mL): 10 Technique Used for Successful ETT Placement: Direct laryngoscopy Devices/Methods Used in Placement: Intubating stylet and LTA Blade Type: curved blade Blade Size: 3 Insertion Site: Oral ETT Size (mm): 7.0 Measured from: Teeth ETT to Teeth (cm): 22 Tube secured with: Tape Placement Verified by: auscultation, end tidal CO2 and chest rise Cormack-Lehane Classification: Grade I - full view of glottis Number of Attempts at Approach: 1 Additional Procedure Information: atraumatic and dentition unchanged Hong Estrada DO PROCEDURE/MINOR SURGICA L ORDERABLES Final Result documented in this encounter Visit Diagnoses Not on filedocumented in this encounter Administered Medications Inactive Administered Medications - up to 3 most recent administrations Medication Order MAR Action Action Date Dose Rate Site acetaminophen (OFIRMEV) 10 mg/mL injection IV, INTRA-PROCEDURE PRN, Starting on Francesca 11/13/24 at 0737, Until Francesca 11/13/24 at 0916, Routine, Anesthesia Intra-op Given 11/13/2024 7:37 AM CDT 1,000 mg ceFAZolin (ANCEF,KEFZOL) vial IV, INTRA-PROCEDURE PRN, Starting on Francesca 11/13/24 at 0746, Until Francesca 11/13/24 at 0916, Routine, Anesthesia Intra-op Given 11/13/2024 7:46 AM CDT 2,000 mg dexAMETHasone (DECADRON) injection IV, INTRA-PROCEDURE PRN, Starting on Francesca 11/13/24 at 0746, Until Francesca 11/13/24 at 0916, Routine, Anesthesia Intra-op Given 11/13/2024 7:46 AM CDT 8 mg fentaNYL PF (SUBLIMAZE) 50 mcg/mL injection IV, INTRA-PROCEDURE PRN, Starting on Francesca 11/13/24 at 0727, Until Francesca 11/13/24 at 0916, Routine, Anesthesia Intra-op Given 11/13/2024 7:27 AM CDT 100 mcg glycopyrrolate (ROBINUL) injection IV, INTRA-PROCEDURE PRN, Starting on Francesca 11/13/24 at 0754, Until Francesca 11/13/24 at 0916, Routine, Anesthesia Intra-op Given 11/13/2024 7:54 AM CDT 0.4 mg HYDROmorphone (PF) (DILAUDID) injection IV, INTRA-PROCEDURE PRN, Starting on Francesca 11/13/24 at 0900, Until Francesca 11/13/24 at 0916, Routine, Anesthesia Intra-op Given 11/13/2024 9:09 AM CDT 1 mg Given 11/13/2024 9:00 AM CDT 1 mg ketamine 100 mg/mL injection IV, INTRA-PROCEDURE PRN, Starting on Francesca 11/13/24 at 0727, Until Francesca 11/13/24 at 0916, Routine, Anesthesia Intra-op Given 11/13/2024 7:27 AM CDT 25 mg ketorolac (TORADOL) injection IV, INTRA-PROCEDURE PRN, Starting on Francesca 11/13/24 at 0903, Until Francesca 11/13/24 at 0916, Routine, Anesthesia Intra-op Given 11/13/2024 9:03 AM CDT 15 mg lactated ringers infusion IV, at 75 mL/hr, CONTINUOUS, Starting on Francesca 11/13/24 at 0530, Until Francesca 11/13/24 at 2114, Stat, Pre-op New Bag 11/13/2024 7:20 AM CDT lidocaine (XYLOCAINE) 4 % topical solution Topical, INTRA-PROCEDURE PRN, Starting on Francesca 11/13/24 at 0730, Until Francesca 11/13/24 at 0916, Routine, Anesthesia Intra-op Given 11/13/2024 7:30 AM CDT 4 mL lidocaine PF 2% (XYLOCAINE MPF) injection IV, INTRA-PROCEDURE PRN, Starting on Francesca 11/13/24 at 0727, Until Francesca 11/13/24 at 0916, Routine, Anesthesia Intra-op Given 11/13/2024 7:27 AM CDT 3 mL midazolam (VERSED) injection IV, INTRA-PROCEDURE PRN, Starting on Francesca 11/13/24 at 0720, Until Francesca 11/13/24 at 0916, Routine, Anesthesia Intra-op Given 11/13/2024 7:20 AM CDT 2 mg ondansetron (ZOFRAN) 4 mg/2 mL injection IV, INTRA-PROCEDURE PRN, Starting on Francesca 11/13/24 at 0747, Until Francesca 11/13/24 at 0916, Routine, Anesthesia Intra-op Given 11/13/2024 7:47 AM CDT 4 mg phenylephrine syringe IV, INTRA-PROCEDURE PRN, Starting on Francesca 11/13/24 at 0750, Until Francesca 11/13/24 at 0916, Routine, Anesthesia Intra-op Given 11/13/2024 7:50 AM CDT 100 mcg propofoL (DIPRIVAN) injection IV, INTRA-PROCEDURE PRN, Starting on Francesca 11/13/24 at 0727, Until Francesca 11/13/24 at 0916, Anesthesia Intra-op Given 11/13/2024 7:27 AM CDT 180 mg rocuronium injection IV, INTRA-PROCEDURE PRN, Starting on Francesca 11/13/24 at 0727, Until Francesca 11/13/24 at 0916, Routine, Anesthesia Intra-op Given 11/13/2024 7:54 AM CDT 10 mg Given 11/13/2024 7:27 AM CDT 40 mg sugammadex (BRIDION) 100 mg/mL injection IV, INTRA-PROCEDURE PRN, Starting on Francesca 11/13/24 at 0902, Until Francesca 11/13/24 at 0916, Routine, Anesthesia Intra-op Given 11/13/2024 9:02 AM CDT 200 mg documented in this encounter Care Teams Manometer Technician Relationship Specialty Start Date End Date Mahnaz Barrientos MD [address] [facility] [address] [place] [id number] PCP - General Family Practice 02/07/24 documented as of this encounter
[2024-11-16 18:08] VITALS: BP 180/96; PULSE 76; RESP 18; TEMP 36.8; O2SAT 96; BMI 40.7
--- OUTSIDE RECORDS SUMMARY | 2024-11-16 18:08 | XMS_ITS | Clinical Summary ---
Author Organization [facility] Address [address] [place] [address] Care Team Providers Care Sulfur Burner Name Role Phone Lizzeth Kolb MD Primary Care Provider Allergies No known active allergies Medications losartan (COZAAR) 100 mg Oral tablet Take 100 mg by mouth daily. Active CETIRIZINE HCL (ZYRTEC ORAL) Take by mouth. Active lovastatin (MEVACOR) 40 mg Oral tablet Take 40 mg by mouth daily with supper. Active levothyroxine 100 mcg tablet 12/01/2019 Acti ve medroxyPROGESTER one (Provera) 10 mg tablet Take 1 Tablet (10 mg) by mouth daily. 10 Tablet 11 12/16/2019 Active Active Problems Problem Noted Date Diagnosed Date Moderate dysplasia of cervix (PRANEETH II) 04/15/2013 AGCUS (atypical glandular ce lls of undetermined significance) on Pap smear 02/28/2013 Papanicolaou smear of cervix with atypical squamous cells cannot exclude high grade squamous intraepithelial lesion (ASC-H) 08/22/2012 Uterine prolapse without mention of vaginal wall prolapse 03/20/2011 Family History Medical History Relation Name Comments Heart Disease Maternal Grandmother Breast Cancer Neg Hx Negative Respo nse--See Media tab Relation Name Status Comments Maternal Grandmother Social History Tobacco Use Types Packs/Day Years Used Date Smoking Tobacco: Former Alcohol Use Standard Drinks/Week Comments No 0 (1 standard drink = 0.6 oz pur e alcohol) Comments No Sex and Gender Information Value Date Recorded Sex Assigned at Not on file 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 Gender Identity Not on file Sexual Orientation Not on file Occupation Industry Job Start Date Job End Date Not on file Not on file Not on file Not on file Last Filed Vital Signs Vital Sign Reading Time Taken Comments Blood Pressure 124/82 12/16/2019 2:02 PM CDT Pulse - - Temperature - - Respiratory Rate - - Oxygen Saturation - - Inhaled Oxygen Concentration - - Weight 114.3 kg (252 lb) 12/16/2019 2:02 PM CDT Height 165.1 cm (5' 5 ) 12/16/2019 2:02 PM CDT Body Mass Index 41.93 12/16/2019 2:02 PM CDT Plan of Treatment Health Maintenance Due Date Last Done Comments DTAP/TDAP/TD VACCINES (1 - Tdap) 1993 HEPATITIS B VACCINES (1 of 3 - 19+ 3-dose series) 1993 COLORECTAL SCREENING 2019 Colorectal Cancer Screening 2019 FIT-DNA Q 3 years 2019 FIT/FOBT Q 1 year 2019 Flex Sig/CT Colonography Q 5 years 2019 BREAST CANCER SCREENING 02/05/2021 02/06/20 20, 12/18/2018, 12/10/2018, Additional history exists PAP SMEAR 12/15/2022 12/16/2019, 11/13, 10/16/2017, Additional history exists CERVICAL CANCER SCREENING 12/11/2023 HPV/Cotest (21-29) 12/11/2023 12/10/2018, 0 10/16/2017, 10/10/2016, Additional history exists HPV/Cotest (30-65) 12/11/2023 12/10/2018, 0 10/16/2017, 10/10/2016, Additional history exists ZOSTER VACCINE (1 of 2) 2024 INFLUENZA VACCINE (#1) 2024 Procedures Procedure Name Priority Date/Time Associated Diagnosis Comments MAMMO 3D EJ SCREEN BILAT W OR WO CAD Routine 02/06/2020 3:40 PM CDT Visit for screening mammogram CERV/VAG CYTO SCREEN PAP W/O HPV Routine 12/16/2019 2:48 PM CDT Screening for cervical cancer History of abnormal cervical Pap smear History of cervical dysplasia CERV/VAG CYTO SCREEN PAP RLFX HPV Routine 12/10/2018 10:57 AM CDT Well woman exam with routine gynecological exam from Last 3 Months or Most Recently Relevant to Health Maintenance Results * MAMMO SCRN BILAT 3D EJ W OR WO CAD (02/06/2020 3:40 PM CDT) Anatomical Region Laterality Modality Breast Bilateral Mammography Narrative 02/10/2020 1:02 PM CDT Bilateral Digital Mammogram with CAD and 3D Tomography Reason for Exam: Screening Comparison: Compared to: 12/10/2018 MAMMO SCRN BILAT 3D EJ W OR WO CAD, 08/31/2017 MAMMO SCREEN BILAT W OR WO CAD, 08/28/2016 MAMMO SCREEN BILAT W OR WO CAD, 08/19/2015 MAMMO DIGITAL SCREEN BILAT, and 05/08/2014 MAMMO DIGITAL SCREEN BILAT Technique: 3D MLO and CC digital tomosynthesis images were acquired and synthesized 2D images (C view) were generated. This digital mammogram was also analyzed by the Computer Aided Detection System CAD). Breast Composition: The breasts are extremely dense, which lowers the sensitivity of mammography. There are no suspicious masses, areas of architectural distortions, or microcalcifications to suggest malignancy. No significant new findings since the prior mammogram(s). us Stevenson Dillard MD MAMMO ORDERABLES Final Resul t * CERV/VAG CYTO SCREEN PAP W/O HPV (12/16/2019 2:48 PM CDT) CLINICAL INFORMATION Information not provided 12/19/2019 5:58 PM CDT [facility] ST[facility] LAST MENSTRUAL PERIOD INFORMATION NOT PROVIDED 12/19/2019 5:58 PM CDT [facility] PREV PAP: INFORMATION NOT PROVIDED 12/19/2019 5:58 PM CDT [facility] PREV BX: INFORMATION NOT PROVIDED 12/19/2019 5:58 PM CDT [facility] SOURCE Endocervix 12/19/2019 5:58 PM CDT [facility] ADEQUACY: SEE COMMENT 12/19/2019 5:58 PM CDT [facility] Comment: Satisfactory for evaluation. Endocervical/transformation zone component present. Age and/or menstrual status not provided PAP INTERP Negative for intraepithelial lesion or malignancy. 12/19/2019 5:58 PM CDT [facility] COMMENT This Pap test has been evaluated with computer assisted technology. 12/19/2019 5:58 PM CDT [facility] RUFFLING HEMMER AUTOMATIC: SEE COMMENT 2019 5:58 PM CDT [facility] Comment: BES, CT(ASCP) CT screening location: [place] [address] [address] [place] [address] EXPLANATORY NOTE SEE COMMENT 020 5:58 PM CDT [facility] Comment: EXPLANATORY NOTE: The Pap is a screening test for cervical cancer. It is not a diagnostic test and is subject to false negative and false positive results. It is most reliable when a satisfactory sample, regularly obtained, is submitted with relevant clinical findings and history, and when the Pap result is evaluated along with historic and current clinical information. Genital SWAB OF ENDOCERVIX / Unknown Collection / Unknown 12/16/2019 2:48 PM CDT 12/17/2019 12:52 PM CDT Narrative [facility] - 12/19/2019 5:58 PM CDT Performing Organization Information: Site ID: Name: [facility] Address: [facility] [place] [address] Director: Berenice Norman Stevenson Dillard MD PATHOLOGY/CYTOLOGY ORDERABLE S Final Result [facility] [phone] * CERV/VAG CYTO SCREEN PAP RLFX HPV (12/10/2018 10:57 AM CDT) CLINICAL INFORMATION Routine exam 12/13/2018 3:45 PM CDT [facility] LAST MENSTRUAL PERIOD INFORMATION NOT PROVIDED 12/13/2018 3:45 PM CDT [facility] PREV PAP: NIL 12/13/2018 3:45 PM CDT [facility] PREV BX: INFORMATION NOT PROVIDED 12/13/2018 3:45 PM CDT [facility] SOURCE Endocervix 12/13/2018 3:45 PM CDT [facility] ADEQUACY: SEE COMMENT 12/13/2018 3:45 PM CDT [facility] Comment: Satisfactory for evaluation. Endocervical/transformation zone component present. Age and/or menstrual status not provided PAP INTERP Negative for intraepithelial lesion or malignancy. 12/13/2018 3:45 PM CDT [facility] COMMENT This Pap test has been evaluated with computer assisted technology. 12/13/2018 3:45 PM CDT [facility] RUFFLING HEMMER AUTOMATIC: SEE COMMENT 2018 3:45 PM CDT [facility] Comment: TMK, CT(ASCP) CT screening location: [place] [address] [address] [place] [address] EXPLANATORY NOTE SEE COMMENT 019 3:45 PM CDT [facility] Comment: EXPLANATORY NOTE: The Pap is a screening test for cervical cancer. It is not a diagnostic test and is subject to false negative and false positive results. It is most reliable when a satisfactory sample, regularly obtained, is submitted with relevant clinical findings and history, and when the Pap result is evaluated along with historic and current clinical information. Genital SWAB OF ENDOCERVIX / Unknown Collection / Unknown 12/10/2018 10:57 AM CDT 12/11/2018 9:35 AM CDT Narrative [facility] - 12/13/2018 3:45 PM CDT Performing Organization Information: Site ID: [place] Name: [facility] Address: [facility] [place] [address] Director: Berenice Norman Stevenson Dillard MD PATHOLOGY/CYTOLOGY ORDERABLE S Final Result [facility] [phone] from Last 3 Months or Most Recently Relevant to Health Maintenance Insurance [employer](X) EXCHANGE Advance Directives For more information, please contact: [phone] Documents on File Type Date Recorded 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
--- OUTSIDE RECORDS SUMMARY | 2024-11-16 18:08 | XMS_ITS | Encounter Summary ---
Author Organization [facility] Address [address] [place] [address] Care Team Providers Care Rotary Filter Operator Name Role Phone Lizzeth Kolb MD Primary Care Provider [phone] Reason for Referral * Outpatient Services (Routine) - Closed Specialty Diagnoses / Procedures Referred By Contac t Referred To Contact Diagnoses Other (abnormal) findings on radiological examination of breast Procedures MAMMO DIGITAL DIAG UNI LEFT Stevenson Dillard MD [address] [place] [address] [place] [address] Phone: tel: fax: [facility] Pre-Registration [place] CALL TO MAKE APPOINTMENT ONLY [address] [place] [address] Phone: tel: fax: Referral ID Status Reason Start Date Expiration Date Visits Re quested Visits Authorized [id number] Closed 05/15/2014 06/15/2015 1 1 NESS INITIATIVES MANAGER Encounter Details Date Type Department Care Team (Latest Contact Info) Description 05/15/2014 Ancillary Orders [facility] [address] [facility] [address] [place] [address] Stevenson Dillard MD [address] [place] [address] Other (abnormal) findings on radiological examination of breast (Primary Dx) Social History Tobacco Use Types Packs/Day Years Used Date Smoking Tobacco: Former Alcohol Use Standard Drinks/Week Comments No 0 (1 standard drink = 0.6 oz pur e alcohol) Comments No Sex and Gender Information Value Date Recorded Sex Assigned at Not on file Legal Sex Female 6:31 AM BUSINESS INITIATIVES 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 Gender Identity Not on file Sexual Orientation Not on file Occupation Industry Job Start Date Job End Date Not on file Not on file Not on file Not on file documented as of this encounter Plan of Treatment Not on file documented as of this encounter Results * MAMMO DIGITAL DIAG UNI LEFT (06/05/2014 12:42 PM BUSINESS INITIATIVES MANAGER) Anatomical Region Laterality Modality Breast Left Mammography 06/05/2014 12:1 4 PM BUSINESS INITIATIVES MANAGER Impressions 06/05/2014 2:57 PM BUSINESS INITIATIVES MANAGER IMPRESSION: No persistent area of suspicion or change is identified when the additional images are reviewed and compared. I suspect this was caused by summation artifact. I would recommend routine annual screening mammogram. Patient received a result/recommendation letter. JONAH/melyssa 1232 PM - uploaded from [employer] 06/05/2014 2:57 PM BUSINESS INITIATIVES MANAGER Left Digital Diagnostic Mammogram: Multiple additional digital images are presented, to evaluate possible obscured nodular area inferiorly on left mediolateral oblique image of recent screening mammogram 05/08/2014, when it was compared with previous. The additional images show this area to good advantage although this area is mildly asymmetrical, the additional images, when compared with recent and previous, suggest that this is stable. No discrete or suspicious abnormality is seen, and no distortion is suggested. I believe the area in question was produced by summation artifact. us Stevenson Dillard MD MAMMO ORDERABLES Final Resul t documented in this encounter Visit Diagnoses Diagnosis Other (abnormal) findings on radiological examination of breast- Primary Other (abnormal) findings on radiological examination of breast documented in this encounter Care Teams Rotary Filter Operator Relationship Specialty Start Date End Date Lizzeth Kolb MD [address] [place] [address] PCP - General Family Practice 05/08/14 documented as of this encounter
--- OUTSIDE RECORDS SUMMARY | 2024-11-16 18:08 | XMS_ITS | Encounter Summary ---
Author Organization [facility] Address [address] [place] [address] Care Team Providers Care Detasseler Name Role Phone Lizzeth Kolb MD Primary Care Provider Reason for Referral * Outpatient Services (Routine) - Closed Specialty Diagnoses / Procedures Referred By Calli rodrigues Referred To Contact Diagnoses Inconclusive mammography Procedures MAMMO BREAST US RIGHT LTD Stevenson Dillard MD [address] [address] Phone: tel: [facility] [place] CALL TO MAKE APPOINTMENT ONLY [address] [place] [address] Phone: tel: fax: Referral ID Status Reason Start Date Expiration Date Visits Re quested Visits Authorized [id number] Closed 08/23/2015 09/22/2016 1 1 * Outpatient Services (Routine) - Closed Specialty Diagnoses / Procedures Referred By Calli rodrigues Referred To Contact Diagnoses Inconclusive mammography Procedures MAMMO DIGITAL DIAG UNI RIGHT Stevenson Dillard MD [address] [address] Phone: tel: fax: [facility] Pre-Registration [place] CALL TO MAKE APPOINTMENT ONLY [address] [place] [address] Phone: tel: fax: Referral ID Status Reason Start Date Expiration Date Visits Re quested Visits Authorized [id number] Closed 08/23/2015 09/22/2016 1 1 Encounter Details Date Type Department Care Team (Latest Contact Info) Description 08/23/2015 Ancillary Orders [facility] [address] [address] [place] [address] Stevenson Dillard MD [address] [facility] [address] [place] [address] Inconclusive mammography (Primary Dx) Social History Tobacco Use Types Packs/Day Years Used Date Smoking Tobacco: Former Alcohol Use Standard Drinks/Week Comments No 0 (1 standard drink = 0.6 oz pur e alcohol) Comments No Sex and Gender Information Value Date Recorded Sex Assigned at Not on file 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 No suspicious findings were identified. I suspect the original finding noted on the screening exam represent overlapping parenchymal structures. Patient is denying any complaints. Routine yearly screening exams are recommended. Patient received the result and recommendation letter. [id number] Narrative 09/03/2015 5:41 PM CDT REASON FOR EXAM: Patient is returning for further evaluation on the right as requested following screening study of 08/19/2015. IMAGING PERFORMED: Right lateral projection and magnification views in the CC and lateral projection. COMPARISON(S): 08/03/2011, 05/08/2014. TISSUE COMPOSITION: Extremely dense. FAMILY HX.-BREAST Ca: Negative, average risk. MAMMOGRAPHIC FINDINGS: RIGHT BREAST: On the screening right CC view, there appeared to be an area of possible distortion in the mid segment of the breast laterally. Following additional imaging today, the tissue disperses nicely, no persistent or suspicious abnormality is detected. When comparison is made with the prior studies, I do not feel that there has been any significant interval change. Because of the very dense breast tissue, further evaluation sonographically is recommended. This digital mammogram was also analyzed by the Computer Aided Detection System (CAD), Neo[employer], Version 8.3. RIGHT BREAST ULTRASOUND: Sonographic evaluation was carried from the 9-12 o'clock location. There are bands of dense fibrocystic tissue, but no suspicious masses were identified. us Stevenson Dillard MD MAMMO ORDERABLES Final Resul t * MAMMO DIGITAL DIAG UNI RIGHT (09/03/2015 11:21 AM CDT) Anatomical Region Laterality Modality Breast Right Mammography 09/03/2015 11:2 1 AM CDT Impressions 09/03/2015 5:41 PM CDT IMPRESSION: Patient returned for additional views and directed right breast ultrasound. No suspicious findings were identified. I suspect the original finding noted on the screening exam represent overlapping parenchymal structures. Patient is denying any complaints. Routine yearly screening exams are recommended. Patient received the result and recommendation letter. [id number] Narrative 09/03/2015 5:41 PM CDT REASON FOR EXAM: Patient is returning for further evaluation on the right as requested following screening study of 08/19/2015. IMAGING PERFORMED: Right lateral projection and magnification views in the CC and lateral projection. COMPARISON(S): 08/03/2011, 05/08/2014. TISSUE COMPOSITION: Extremely dense. FAMILY HX.-BREAST Ca: Negative, average risk. MAMMOGRAPHIC FINDINGS: RIGHT BREAST: On the screening right CC view, there appeared to be an area of possible distortion in the mid segment of the breast laterally. Following additional imaging today, the tissue disperses nicely, no persistent or suspicious abnormality is detected. When comparison is made with the prior studies, I do not feel that there has been any significant interval change. Because of the very dense breast tissue, further evaluation sonographically is recommended. This digital mammogram was also analyzed by the Computer Aided Detection System (CAD), [employer] ImageMatchboxcker, Version 8.3. RIGHT BREAST ULTRASOUND: Sonographic evaluation was carried from the 9-12 o'clock location. There are bands of dense fibrocystic tissue, but no suspicious masses were identified. us Stevenson Dillard MD MAMMO ORDERABLES Final Resul t documented in this encounter Visit Diagnoses Diagnosis Inconclusive mammography- Primary Inconclusive mammogram Inconclusive mammography Inconclusive mammogram Inconclusive mammography Inconclusive mammogram documented in this encounter Care Teams Detasseler Relationship Specialty Start Date End Date Lizzeth Kolb MD [address] [place] [address] PCP - General Family Practice 05/08/14 documented as of this encounter
--- OUTSIDE RECORDS SUMMARY | 2024-11-16 18:08 | XMS_ITS | Encounter Summary ---
Author Organization [facility] Address [address] [place] [address] Care Team Providers Care Driver Guard Name Role Phone Lizzeth Kolb MD Primary Care Provider Reason for Referral * Outpatient Services (Routine) - Closed Specialty Diagnoses / Procedures Referred By Calli rodrigues Referred To Contact Diagnoses Visit for screening mammogram Procedures MAMMO DIGITAL SCREEN BILAT Stevenson Dillard MD [address] [address] Phone: tel: fax: [facility] Pre-Registration [place] CALL TO MAKE APPOINTMENT ONLY [address] [place] [address] Phone: tel: fax: Referral ID Status Reason Start Date Expiration Date Visits Re quested Visits Authorized [id number] Closed 07/23/2015 08/22/2016 1 1 DOCUMENTATION SPECIALIST Encounter Details Date Type Department Care Team (Latest Contact Info) Description 07/23/2015 Ancillary Orders [facility] Pre-Registration [place] CALL TO MAKE APPOINTMENT ONLY [address] [place] [address] Stevenson Dillard MD [address] [address] Visit for screening mammogram (Primary Dx) Social History Tobacco Use Types Packs/Day Years Used Date Smoking Tobacco: Former Alcohol Use Standard Drinks/Week Comments No 0 (1 standard drink = 0.6 oz pur e alcohol) Comments No Sex and Gender Information Value Date Recorded Sex Assigned at Not on file Legal Sex Female 6:31 AM RN DOCUMENTATION SPECIALIST Gender Identity Not on file Sexual Orientation Not on file Occupation Industry Job Start Date Job End Date Not on file Not on file Not on file Not on file documented as of this encounter Plan of Treatment Not on file documented as of this encounter Results * MAMMO DIGITAL SCREEN BILAT (08/19/2015 8:17 AM CDT) Anatomical Region Laterality Modality Breast Bilateral Mammography 08/19/2015 8:27 AM CDT Impressions 08/21/2015 2:29 AM CDT IMPRESSION: Patient needs to return for further evaluation on the right. [id number] Narrative 08/21/2015 2:29 AM CDT REASON FOR EXAM: Screening. IMAGES OBTAINED: Standard 4-view mammogram. PATIENT COMPLAINT: No Concerns. FAMILY HX.-BREAST Ca: Negative, average risk. TISSUE COMPOSITION: Extremely dense. COMPARISON EXAM(S): 08/03/2011, 05/08/2014, and ultrasound of 09/04/2014. FINDINGS: RIGHT BREAST: The patient has an area of overlapping parenchymal structures versus a developing irregular density in the lateral aspect of the breast. A corresponding abnormality is not identified on the MLO projection. Patient needs to return for a true lateral projection and magnification view in the CC projection for further evaluation. Patient is denying any complaints. LEFT BREAST: Stable. This mammogram was also analyzed by the Computer Aided Detection System (CAD), [employer] ImageChecker, Version 8.3. us Stevenson Dillard MD MAMMO ORDERABLES Final Resul t documented in this encounter Visit Diagnoses Diagnosis Visit for screening mammogram- Primary Other screening mammogram Visit for screening mammogram Other screening mammogram documented in this encounter Care Teams Driver Guard Relationship Specialty Start Date End Date Lizzeth Kolb MD [address] [place] [address] PCP - General Family Practice 05/08/14 documented as of this encounter
--- OUTSIDE RECORDS SUMMARY | 2024-11-16 18:08 | XMS_ITS | Encounter Summary ---
Author Organization [facility] Address [address] [place] [address] Care Team Providers Care Master Fisher Name Role Phone Lizzeth Kolb MD Primary Care Provider [phone] Reason for Referral * CT Scan (Routine) - Closed Specialty Diagnoses / Procedures Referred By Calli t Referred To Contact Diagnoses Facial swelling Procedures CT SINUS FACIAL BONES W CONTRAST Greg Paniagua MD [address] [place] [address] Phone: tel: fax: [facility] Pre-Registration [place] CALL TO MAKE APPOINTMENT ONLY [address] [place] [address] Phone: tel: fax: Referral ID Status Reason Start Date Expiration Date V isits Requested Visits Authorized [id number] Closed [facility] TO SCHEDULE (SGF) 02/28/2019 03/29/2019 1 1 Encounter Details Date Type Department Care Team (Late st Contact Info) Description 03/05/2019 Ancillary Orders [facility] Pre-Registration [place] CALL TO MAKE APPOINTMENT ONLY [address] [place] [address] Greg Paniagua MD [address] [place] [address] Facial swelling Social History Tobacco Use Types Packs/Day Years Used Date Smoking Tobacco: Former Alcohol Use Standard Drinks/Week Comments No 0 (1 standard drink = 0.6 oz pur e alcohol) Comments No Sex and Gender Information Value Date Recorded Sex Assigned at Not on file 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 Exam: CT SINUS FACIAL BONES W CONTRAST Date/Time of Exam: 03/14/2019 3:49 PM Reason For Exam: See Diagnosis. Diagnosis: Facial swelling. Technique: CT of the sinuses and facial bones was performed following the administration of intravenous contrast. Contrast: IOPAMIDOL 61 % INTRAVENOUS SOLUTION Given:75 mL Findings: The nasal bones and lamina papyracea are intact. The zygomatic arches and pterygoid plates are intact. The temporomandibular joints and mandible are intact. The globes and orbits are intact. The retrobulbar and retroantral fat are clear. The paranasal sinuses and mastoid air cells are predominantly clear. No nasopharyngeal or nasal cavity mass. Remaining soft tissues of the head and neck are unremarkable. The visualized intracranial structures demonstrate no acute abnormality. No aggressive osseous destruction. IMPRESSION: Unremarkable CT of the face with contrast. Narrative Procedure Note Carlos Mueller, DO - 03/16/2019 IMPRESSION: Please see below. Exam: CT SINUS FACIAL BONES W CONTRAST Date/Time of Exam: 03/14/2019 3:49 PM Reason For Exam: See Diagnosis. Diagnosis: Facial swelling. Technique: CT of the sinuses and facial bones was performed following the administration of intravenous contrast. Contrast: IOPAMIDOL 61 % INTRAVENOUS SOLUTION Given:75 mL Findings: The nasal bones and lamina papyracea are intact. The zygomatic arches and pterygoid plates are intact. The temporomandibular joints and mandible are intact. The globes and orbits are intact. The retrobulbar and retroantral fat are clear. The paranasal sinuses and mastoid air cells are predominantly clear. No nasopharyngeal or nasal cavity mass. Remaining soft tissues of the head and neck are unremarkable. The visualized intracranial structures demonstrate no acute abnormality. No aggressive osseous destruction. IMPRESSION: Unremarkable CT of the face with contrast. us Greg Paniagua MD CT ORDERABLES Final Res ult documented in this encounter Visit Diagnoses Diagnosis Facial swelling Swelling, mass, or lump in head and neck Facial swelling Swelling, mass, or lump in head and neck documented in this encounter Care Teams Master Fisher Relationship Specialty Start Date End Date Lizzeth Kolb MD [address] [place] [address] PCP - General Family Practice 05/08/14 documented as of this encounter
--- OUTSIDE RECORDS SUMMARY | 2024-11-16 18:08 | XMS_ITS | Encounter Summary ---
Author Organization [facility] Address [address] [place] [address] Care Team Providers Care Log Carrier Operator Name Role Phone Lizzeth Kolb MD Primary Care Provider Reason for Referral * Radiology Services (Routine) - Closed Specialty Diagnoses / Procedures Referred By Contac t Referred To Contact Radiology Diagnoses Visit for screening mammogram Procedures MAMMO SCRN BILAT 3D EJ W OR WO CAD CHG SCREENING MAMMOGRAPHY BI 2-VIEW BREAST INC CAD CHG SCREENING DIGITAL BREAST TOMOSYNTHESIS BI Stevenson Dillard MD [address] [facility] [address] [place] [address] Phone: tel: fax: [facility] [address] [facility] [address] [place] [address] Phone: tel: fax: Referral ID Status Reason Start Date Expiration Date Visits Re quested Visits Authorized [id number] Closed 11/28/2019 12/28/2020 1 1 Encounter Details Date Type Department Care Team (Latest Contact Info) Description 11/28/2019 Ancillary Orders [facility] Pre-Registration [place] CALL TO MAKE APPOINTMENT ONLY [address] [place] [address] Stevenson Dillard MD [address] [phone] Visit for screening mammogram Social History Tobacco Use Types Packs/Day Years Used Date Smoking Tobacco: Former Alcohol Use Standard Drinks/Week Comments No 0 (1 standard drink = 0.6 oz pur e alcohol) Comments No Sex and Gender Information Value Date Recorded Sex Assigned at Not on file 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 No / Unsure 11/28/2019 2:34 PM CDT documented as of this encounter Plan of Treatment Not on file documented as of this encounter Results * MAMMO SCRN BILAT 3D EJ [...] encounter Visit Diagnoses Diagnosis Visit for screening mammogram Other screening mammogram Visit for screening mammogram Other screening mammogram documented in this encounter Care Teams Log Carrier Operator Relationship Specialty Start Date End Date Lizzeth Kolb MD [address] [place] [address] PCP - General Family Practice 05/08/14 documented as of this encounter
--- OUTSIDE RECORDS SUMMARY | 2024-11-16 18:08 | XMS_ITS | Encounter Summary ---
Author Organization [facility] Address [address] [place] [address] Care Team Providers Care Policy Analyst Name Role Phone Lizzeth Kolb MD Primary Care Provider Reason for Referral * Outpatient Services (Routine) - Closed Specialty Diagnoses / Procedures Referred By Calli rodrigues Referred To Contact Diagnoses Breast cancer screening Procedures MAMMO SCREEN BILAT W OR WO CAD Stevenson Dillard MD [address] [address] Phone: tel: fax: [facility] Pre-Registration [place] CALL TO MAKE APPOINTMENT ONLY [address] [place] [address] Phone: tel: fax: Referral ID Status Reason Start Date Expiration Date Visits Re quested Visits Authorized [id number] Closed 07/30/2017 08/30/2018 1 1 Encounter Details Date Type Department Care Team (Latest Contact Info) Description 07/30/2017 Ancillary Orders [facility] Pre-Registration [place] CALL TO MAKE APPOINTMENT ONLY [address] [place] [address] Stevenson Dillard MD [address] [phone] Breast cancer screening Social History Tobacco Use Types Packs/Day Years Used Date Smoking Tobacco: Former Alcohol Use Standard Drinks/Week Comments No 0 (1 standard drink = 0.6 oz pur e alcohol) Comments No Sex and Gender Information Value Date Recorded Sex Assigned at Not on file 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 Gender Identity Not on file Sexual Orientation Not on file Occupation Industry Job Start Date Job End Date Not on file Not on file Not on file Not on file documented as of this encounter Plan of Treatment Not on file documented as of this encounter Results * MAMMO SCREEN BILAT W OR WO CAD (08/31/2017 10:36 AM CDT) Anatomical Region Laterality Modality Breast Bilateral Mammography Narrative 09/03/2017 2:16 PM CDT Bilateral Mammogram Reason for Exam: Screening Comparison: Compared to: 08/28/2016 MAMMO SCREEN BILAT W OR WO CAD, 08/19/2015 MAMMO DIGITAL SCREEN BILAT, 05/08/2014 MAMMO DIGITAL SCREEN BILAT, and 08/03/2011 MAMMO DIGITAL DIAG BILAT Findings: Bilateral CC and MLO views were obtained. This examination was reviewed with the aid of a computer-aided detection system(CAD). Breast Composition: The breasts are heterogeneously dense, which may obscure small masses. There are no suspicious masses, areas of architectural distortions, or microcalcifications to suggest malignancy. No significant new findings since the prior mammogram(s). us Stevenson Dillard MD MAMMO ORDERABLES Final Resul t documented in this encounter Visit Diagnoses Diagnosis Breast cancer screening Breast screening, unspecified Breast cancer screening Breast screening, unspecified documented in this encounter Care Teams Policy Analyst Relationship Specialty Start Date End Date Lizzeth Kolb MD [address] [place] [address] PCP - General Family Practice 05/08/14 documented as of this encounter
--- OUTSIDE RECORDS SUMMARY | 2024-11-16 18:08 | XMS_ITS | Data Portability ---
Author Organization ELAYNE Copeland [facility] Address [address] [address] Assessment No assessment recorded. Plan of Treatment Reminders Order Date Submit Date Provider Last Modified By Organization Details Last Modified Time Details Appointments None recorded. Lab microalbumi n, urine 2023 024 [employer] [facility], [address] [place] [address], [address], [place], [address], 4 11:25:37 C reactive protein, QN, serum or plasma 2023 024 [employer] [facility], [address] [place] [address], [address], [place], [address], 4 08:04:28 uric acid, serum or plasma 2022 023 [employer] [place] [address], [address], [place], [address], 3 05:51:40 C-reactive protein, quantitativ e, serum or plasma 2022 023 [employer] [place] [address], [address], [place], [address], 3 05:51:43 BMP, serum or plasma 2022 023 [place] [facility], [address], [facility] [address], [address], 3 05:51:42 glycohemogl obin, total, blood 2022 023 [email or web address] 40 [facility], [address], [address] [place], [address], 3 08:20:51 Referral None recorded. Procedures None recorded. Surgeries None recorded. Imaging CT, abdomen, w/wo contrast - hx of RUQ swelling w normal LFTs and liver u/s wnl. visible when pt standing but subtle, nothing palpated on exam. strong fam hx of cancers.... 2023 024 [email or web address] 2 [facility], [address] [place], [address], 4 15:46:18 Medication Orders propranolol 20 mg tablet 2023 024 [email or web address] 40 [facility] [place], [address] [place], [address], 4 08:00:19 prednisone 20 mg tablet 2022 023 [facility], [address] [place], [address], 3 11:27:51 Patient TargetsNo targets recorded. Patient Instructions Encounter Date Encounter Id Patient Instructions Last Modified By Organization Details Last Modified Time 07/16/2023 [id number] Home Blood Sugar Test: About This Test Not available 07/16/2023 12:19:21 check A1C in 3 months. Not available 07/16/2023 12:44:19 Reason for Referral None Reported. Results Created Date Observation Date Name Description Value Unit Range Abnormal Flag Note LastModifiedBy Organization Detail LastModifiedTime 12/20/19 23 12/20/2022 LIPID PANEL , STAND DOROTEO cholesterol, total 139 mg/dL <200 normal Not Available [facility] [address] [place], [address], 12/20/2022 07:52:07 12/20/19 23 12/20/2022 LIPID PANEL , STAND DOROTEO HDL cholesterol 34 mg/dL > or = 50 low Not Available [facility] [address] [place], [address], 12/20/2022 07:52:07 12/20/19 23 12/20/2022 LIPID PANEL , STAND DOROTEO triglyceride s 110 mg/dL <150 normal Not Available [facility] [address] [place], [address], 12/20/2022 07:52:07 12/20/19 23 12/20/2022 LIPID PANEL , STAND DOROTEO LDL-choleste rol 84 mg/dL _(rusty c) normal Refer ence range : <100 Evan able range <100 mg/dL for prima ry preve ntion ; <70 mg/dL for patie nts with CHD or diabe tic patie nts with > or = 2 CHD risk facto rs. LDL-C is now calcu lated using the Thao cook-Hop kins ashiau whitney n, which is a valid ated novel jose luis camara acy than the Fried mary equat ion in the estim ation of LDL-C . Thao cook SS et al. SILVIA. 2013; 310(1 9): 2061- 2068 (http ://ed ucati on.Qu Salas shah SurveyMonkeys. com/f aq/FA Q164) Not Available [facility] [address] [address], [place], [address], 12/20/2022 07:52:07 12/20/19 23 12/20/2022 LIPID PANEL , STAND DOROTEO chol/HDLC ratio 4.1 (calc ) <5.0 normal Not Available [facility] [address] [place], [address], 12/20/2022 07:52:07 12/20/19 12/20/2022 LIPID PANEL , STAND DOROTEO non HDL cholesterol 105 mg/dL _(rusty c) <130 normal For patie nts with diabe oleg plus 1 major ASCVD risk facto r, treat ing to a non-H DL-C goal of <100 mg/dL (LDL- C of <70 mg/dL ) is felicitasi steffanie pascual optio n. Not Available [address], [address], 12/20/2022 07:52:07 12/20/1912/20/2022 COMPR EHENS ROSARIO METAB OLIC PANEL glucose 136 mg/dL 65-99 high Fasti ng refer ence inter catherine For someo ne witho ut known diabe oleg, a gluco se value >125 mg/dL indic ates that they may have diabe oleg and this shoul d be confi rmed with a follo w-up test. Not Available [address], [address], 12/20/2022 07:52:07 12/20/1912/20/2022 COMPR EHENS ROSARIO METAB OLIC PANEL urea nitrogen (BUN) 21 mg/dL 7-25 normal Not Available [address], [address], 12/20/2022 07:52:07 12/20/1912/20/2022 COMPR EHENS ROSARIO METAB OLIC PANEL creatinine 0.78 mg/dL 0.50-0 .99 normal Not Available [address], [address], 12/20/2022 07:52:07 12/20/19 23 12/20/2022 COMPR EHENS ROSARIO METAB OLIC PANEL eGFR 94 mL/mi n/1.7 3m2 > or = 60 normal Not Available [address] [place], [address], 12/20/2022 07:52:07 12/20/19 23 12/20/2022 COMPR EHENS ROSARIO METAB OLIC PANEL BUN/creatini ne ratio SEE NOTE: (calc ) 6-22 Not Repor marysol: BUN and Creat inine are withi n refer ence range . Not Available [address], [address], 12/20/2022 07:52:07 12/20/19 23 12/20/2022 COMPR EHENS ROSARIO METAB OLIC PANEL sodium 137 mmol/ L 135-14 6 normal Not Available [address], [address], 12/20/2022 07:52:07 12/20/19 23 12/20/2022 COMPR EHENS ROSARIO METAB OLIC PANEL potassium 4.1 mmol/ L 3.5-5. 3 normal Not Available [address], [address], 12/20/2022 07:52:07 12/20/19 23 12/20/2022 COMPR EHENS ROSARIO METAB OLIC PANEL chloride 105 mmol/ L 98-110 normal Not Available [address], [address], 12/20/2022 07:52:07 12/20/19 23 12/20/2022 COMPR EHENS ROSARIO METAB OLIC PANEL carbon dioxide 22 mmol/ L 20-32 normal Not Available [address], [address], 12/20/2022 07:52:07 12/20/19 23 12/20/2022 COMPR EHENS ROSARIO METAB OLIC PANEL calcium 8.8 mg/dL 8.6-10 .2 normal Not Available [address], [address], 12/20/2022 07:52:07 12/20/19 23 12/20/2022 COMPR EHENS ROSARIO METAB OLIC PANEL protein, total 6.9 g/dL 6.1-8. 1 normal Not Available [facility] [address] [place], [address], 12/20/2022 07:52:07 12/20/1912/20/2022 COMPR EHENS ROSARIO METAB OLIC PANEL albumin 4.0 g/dL 3.6-5. 1 normal Not Available [address], [address], 12/20/2022 07:52:07 12/20/1912/20/2022 COMPR EHENS ROSARIO METAB OLIC PANEL globulin 2.9 g/dL_ (calc ) 1.9-3. 7 normal Not Available [address], [address], 12/20/2022 07:52:07 12/20/1912/20/2022 COMPR EHENS ROSARIO METAB OLIC PANEL albumin/glob ulin ratio 1.4 (calc ) 1.0-2. 5 normal Not Available [address], [address], 12/20/2022 07:52:07 12/20/1912/20/2022 COMPR EHENS ROSARIO METAB OLIC PANEL bilirubin, total 0.6 mg/dL 0.2-1. 2 normal Not Available [address], [address], 12/20/2022 07:52:07 12/20/1912/20/2022 COMPR EHENS ROSARIO METAB OLIC PANEL alkaline phosphatase 76 U/L 31-125 normal Not Available [place] [address] [place], [address], 12/20/2022 07:52:07 12/20/1912/20/2022 COMPR EHENS ROSARIO METAB OLIC PANEL AST 12 U/L 10-35 normal Not Available [address], [address], 12/20/2022 07:52:07 12/20/19 23 12/20/2022 COMPR EHENS ROSARIO METAB OLIC PANEL ALT 15 U/L 6-29 normal Not Available [facility] [address] [place], [address], 12/20/2022 07:52:07 12/20/19 23 12/20/2022 TSH TSH 3.01 mIU/L normal Refer ence Range > or = 20 Years 0.40- 4.50 Pregn shira Range s First trime ster 0.26- 2.66 Secon d trime ster 0.55- 2.73 Third trime ster 0.43- 2.91 Not Available [facility] [address] [place], [address], 12/20/2022 07:52:08 12/20/19 23 12/20/2022 HEMOG LOBIN A1C hemoglobin A1C 6.1 %_of_ total _HGB <5.7 high For someo ne witho ut known diabe oleg, a hemog lobin A1c value betwe en 5.7% and 6.4% is consi stent with predi abete s and shoul d be confi rmed with a follo w-up test. For someo ne with known diabe oleg, a value <7% indic ates that their diabe oleg is well contr olled . A1c targe ts shoul d be indiv idual ized based on durat ion of diabe oleg, age, comor bid condi tions , and other consi derat ions. This assay resul t is consi stent with an incre ased risk of diabe oleg. Curre ntly, no conse nsus exist s regar ding use of hemog lobin A1c for diagn osis of diabe oleg for child chance. Not Available [facility] [address] [place], [address], 12/20/2022 08:29:36 04/27/20 23 04/28/2023 URIC ACID uric acid 3.4 mg/dL 2.5-7. 0 normal Thera peuti c targe t for gout patie nts: <6.0 mg/dL Not Available [facility] [place] [address] [place], [address], 04/28/2023 05:51:40 04/27/20 23 04/28/2023 BASIC METAB OLIC PANEL glucose 130 mg/dL 65-99 high Fasti ng refer ence inter catherine For someo ne witho ut known diabe oleg, a gluco se value >125 mg/dL indic ates that they may have diabe oleg and this shoul d be confi rmed with a follo w-up test. Not Available [address] [place], [address], 04/28/2023 05:51:42 04/27/2004/28/2023 BASIC METAB OLIC PANEL urea nitrogen (BUN) 19 mg/dL 7-25 normal Not Available [address] [place], [address], 04/28/2023 05:51:42 04/27/20 23 04/28/2023 BASIC METAB OLIC PANEL creatinine 0.75 mg/dL 0.50-0 .99 normal Not Available [place] [address] [place], [address], 04/28/2023 05:51:42 04/27/20 23 04/28/2023 BASIC METAB OLIC PANEL eGFR 98 mL/mi n/1.7 3m2 > or = 60 normal Not Available [place] [address] [place], [address], 04/28/2023 05:51:42 04/27/20 23 04/28/2023 BASIC METAB OLIC PANEL BUN/creatini ne ratio SEE NOTE: (calc ) 6-22 Not Repor maryslo: BUN and Creat inine are withi n refer ence range . Not Available [facility] [place] [address] [place], [address], 04/28/2023 05:51:42 04/27/20 23 04/28/2023 BASIC METAB OLIC PANEL sodium 137 mmol/ L 135-14 6 normal Not Available [address], [address], 04/28/2023 05:51:42 04/27/20 23 04/28/2023 BASIC METAB OLIC PANEL potassium 3.7 mmol/ L 3.5-5. 3 normal Not Available [address], [address], 04/28/2023 05:51:42 04/27/20 23 04/28/2023 BASIC METAB OLIC PANEL chloride 103 mmol/ L 98-110 normal Not Available [address], [address], 04/28/2023 05:51:42 04/27/20 23 04/28/2023 BASIC METAB OLIC PANEL carbon dioxide 24 mmol/ L 20-32 normal Not Available [address], [address], 04/28/2023 05:51:42 04/27/20 23 04/28/2023 BASIC METAB OLIC PANEL calcium 9.2 mg/dL 8.6-10 .2 normal Not Available [address], [address], 04/28/2023 05:51:42 04/27/2004/28/2023 C-JOSSY CTIVE PROTE IN C-reactive protein 27.0 mg/L <8.0 high Not Available [address], [address], 04/28/2023 11:58:05 07/13/19 24 07/14/2023 HEMOG LOBIN A1C hemoglobin A1C 7.1 %_of_ total _HGB <5.7 high For someo ne witho ut known diabe oleg, a hemog lobin A1c value of 6.5% or great er indic ates that they may have diabe oleg and this shoul d be confi rmed with a follo w-up test. For someo ne with known diabe oleg, a value <7% indic ates that their diabe oleg is well contr olled and a value great er than or equal to 7% indic ates subop timal contr ol. A1c targe ts shoul d be indiv idual ized based on durat ion of diabe oleg, age, comor bid condi tions , and other consi derat ions. Curre ntly, no conse nsus exist s regar ding use of hemog lobin A1c for diagn osis of diabe oleg for child chance. This test was perfo rmed on the [employer] t[employer] c8000 platf orm. Pleas e be advis ed that [facility] will move hemog lobin A1c testi ng to the [place] [employer] platf orm soon. In gener al, direc t mikel rison of the resul ts from diffe rent platf orms is not recom hermilo d. Not Available [facility] [address] [place], [address], 07/14/2023 08:35:32 07/16/19 24 07/17/2023 ALBUM IN, RANDO M URINE W/O CREAT ININE albumin, urine 1.7 mg/dL see note: normal Refer ence Range : Refer ence Range Not estab lishe d Not Available [facility] [address] [place], [address], 07/17/2023 11:25:37 07/16/19 24 07/17/2023 ALBUM IN, RANDO M URINE W/O CREAT ININE ARACELI The ADA defin es abnor malit ies in album in excre tion as follo ws: Album inuri a Categ ory Resul t (mcg/ mg creat inine ) Jazmin l to Mildl y incre ased <30 Moder ately incre ased 30-29 9 Sever sarah incre ased > OR = 300 The ADA recom mends that at least two of three speci mens colle cted withi n a 3-6 month perio d be abnor mal befor e consi dakotah g a patie nt to be withi n a diagn ostic categ ory. Not Available [facility] [address] [address] , [place], [address], 07/17/2023 11:25:37 07/16/19 24 07/17/2023 C-JOSSY CTIVE PROTE IN C-reactive protein 22.0 mg/L <8.0 high Not Available [facility] [place] [address] [address] [address] , [place], [address], 07/17/2023 11:41:58 07/20/19 24 07/25/2023 GLADYS,I FA, CASCA DE AND RHEUM ATOID ARTHR ITIS PANEL 2, WITH REFLE XES GLADYS screen, ifa POSITI VE negati ve abnormal GLADYS IFA is a first line scree n for detec ting the prese nce of up to appro ximat sarah 150 autoa ntibo dies in vario us autoi mmune disea ses. A posit rosario GLADYS IFA resul t is sugge stive of autoi mmune disea se and refle xes to titer , gaurav vega and the 3 tiere d Multi plex 11 Antib kuldip [place]. Testi ng in the [place] stops at the first posit rosario resul t, and does not precl ude addit ional posit rosario resul ts. Furth er labor atory testi ng may be consi dered if clini beth indic ated. For addit ional infor amina estrada e refer to http: //antonina Xiao stDia gnost ics.c om/fa q/FAQ 177 (This link is being provi ded for infor harriett knowles/ gale kapadia purpo ses only. ) Not Available [facility] [address] [address], [place], [address], 07/25/2023 19:08:30 07/20/19 24 07/25/2023 GLADYS,I FA, CASCA DE AND RHEUM ATOID ARTHR ITIS PANEL 2, WITH REFLE XES rheumatoid factor <14 IU/mL <14 normal Not Available [facility] [place] [address] [address], [place], [address], 07/25/2023 19:08:30 07/20/19 24 07/25/2023 GLADYS,I FA, CASCA DE AND RHEUM ATOID ARTHR ITIS PANEL 2, WITH REFLE XES cyclic citrullinate d peptide (ccp) Ab (IgG) <16 units normal Refer ence Range Negat rosario: <20 Weak Posit rosario: 20-39 Moder ate Posit rosario: 40-59 Stron g Posit rosario: >59 Not Available [facility] [address] [place], [address], 07/25/2023 19:08:30 07/20/19 24 07/25/2023 GLADYS,I FA, CASCA DE AND RHEUM ATOID ARTHR ITIS PANEL 2, WITH REFLE XES mutated citrullinate d vimentin (MCV) Ab <20 U/mL <20 Anti- mutat ed citru llina marysol vimen tin antib kuldip may be used as a secon d-malgorzata e marke r of rheum atoid arthr itis, in addit ion to rheum atoid facto r and anti- cycli c citru llina marysol pepti de (CCP) . Not Available [address], [address], 07/25/2023 19:08:30 07/20/19 24 07/21/2023 CBC (INCL UDES DIFF/ PLT) white blood cell count 11.3 thous and/u L 3.8-10 .8 high Not Available [facility] [address] [place], [address], 07/21/2023 07:06:28 07/20/19 24 07/21/2023 CBC (INCL UDES DIFF/ PLT) red blood cell count 4.08 chucky on/uL 3.80-5 .10 normal Not Available [facility] [address] [place], [address], 07/21/2023 07:06:28 07/20/19 24 07/21/2023 CBC (INCL UDES DIFF/ PLT) hemoglobin 11.7 g/dL 11.7-1 5.5 normal Not Available [address], [address], 07/21/2023 07:06:28 07/20/19 24 07/21/2023 CBC (INCL UDES DIFF/ PLT) hematocrit 35.8 % 35.0-4 5.0 normal Not Available [address], [address], 07/21/2023 07:06:28 07/20/19 24 07/21/2023 CBC (INCL UDES DIFF/ PLT) MCV 87.7 fL 80.0-1 00.0 normal Not Available [address], [address], 07/21/2023 07:06:28 07/20/19 24 07/21/2023 CBC (INCL UDES DIFF/ PLT) MCH 28.7 pg 27.0-3 3.0 normal Not Available [address], [address], 07/21/2023 07:06:28 07/20/19 24 07/21/2023 CBC (INCL UDES DIFF/ PLT) MCHC 32.7 g/dL 32.0-3 6.0 normal Not Available [address], [address], 07/21/2023 07:06:28 07/20/19 24 07/21/2023 CBC (INCL UDES DIFF/ PLT) RDW 13.0 % 11.0-1 5.0 normal Not Available [address], [address], 07/21/2023 07:06:28 07/20/19 24 07/21/2023 CBC (INCL UDES DIFF/ PLT) platelet count 294 thous and/u L 140-40 0 normal Not Available [address] [place], [address], 07/21/2023 07:06:28 07/20/19 24 07/21/2023 CBC (INCL UDES DIFF/ PLT) MPV 10.3 fL 7.5-12 .5 normal Not Available [address], [address], 07/21/2023 07:06:28 07/20/19 24 07/21/2023 CBC (INCL UDES DIFF/ PLT) absolute neutrophils 6950 cells /uL 1500-7 800 normal Not Available [address], [address], 07/21/2023 07:06:28 07/20/19 24 07/21/2023 CBC (INCL UDES DIFF/ PLT) absolute lymphocytes 2441 cells /uL 850-39 00 normal Not Available [address], [address], 07/21/2023 07:06:28 07/20/19 24 07/21/2023 CBC (INCL UDES DIFF/ PLT) absolute monocytes 667 cells /uL 200-95 0 normal Not Available [address], [address], 07/21/2023 07:06:28 07/20/19 24 07/21/2023 CBC (INCL UDES DIFF/ PLT) absolute eosinophils 1198 cells /uL 15-500 high Not Available [facility] [address], [address], 07/21/2023 07:06:28 07/20/19 24 07/21/2023 CBC (INCL UDES DIFF/ PLT) absolute basophils 45 cells /uL 0-200 normal Not Available [facility] [address], [address], 07/21/2023 07:06:28 07/20/19 24 07/21/2023 CBC (INCL UDES DIFF/ PLT) neutrophils 61.5 % normal Not Available [address], [address], 07/21/2023 07:06:28 07/20/19 24 07/21/2023 CBC (INCL UDES DIFF/ PLT) lymphocytes 21.6 % normal Not Available [address], [address], 07/21/2023 07:06:28 07/20/19 24 07/21/2023 CBC (INCL UDES DIFF/ PLT) monocytes 5.9 % normal Not Available [facility] [address], [address], 07/21/2023 07:06:28 07/20/19 24 07/21/2023 CBC (INCL UDES DIFF/ PLT) eosinophils 10.6 % normal Not Available [address], [address], 07/21/2023 07:06:28 07/20/19 24 07/21/2023 CBC (INCL UDES DIFF/ PLT) basophils 0.4 % normal Not Available [address], [address], 07/21/2023 07:06:28 07/20/19 24 07/25/2023 ANTIN UCLEA R ANTIB ODIES TITER AND PATTE RN GLADYS titer 1:320 titer high Refer ence Range <1:40 Negat rosario 1:40- 1:80 Low Antib kuldip Level >1:80 Hornell marysol Antib kuldip Level Not Available [facility] [address], [address], 07/25/2023 11:33:14 07/20/19 24 07/25/2023 ANTIN UCLEA R ANTIB ODIES TITER AND PATTE RN GLADYS pattern Nuclea r, Homoge neous abnormal Homog eneou s patte rn is assoc iated with syste marcelino lupus eryth emato reyna (SLE) , drug- induc ed lupus and shana ile idiop athic arthr itis. AC-1: Homog eneou s Inter natio nal Conse nsus on GLADYS Patte rns (http s://d oi.or g/10. 1515/ [facility]- 2017- 0052) Not Available [address] [place], [address], 07/25/2023 11:33:14 07/20/19 24 07/25/2023 TIER 1 DNA (ds) antibody <1 IU/mL normal IU/mL Inter preta tion < or = 4 Negat rosario 5-9 Indet ermin ate > or = 10 Posit rosario Not Available [place] [address] [place], [address], 07/25/2023 17:21:29 07/20/19 24 07/25/2023 TIER 1 sm antibody <1.0 NEG ai <1.0 neg normal Not Available [place] [address] [place], [address], 07/25/2023 17:21:29 07/20/19 24 07/25/2023 TIER 1 sm/psychologist experimental antibody <1.0 NEG ai <1.0 neg normal Not Available [place] [address] [place], [address], 07/25/2023 17:21:29 07/20/19 24 07/25/2023 TIER 1 psychologist experimental antibody <1.0 NEG ai <1.0 neg normal Not Available [place] [address] [place], [address], 07/25/2023 17:21:29 07/20/19 24 07/25/2023 TIER 1 chromatin (nucleosomal ) antibody <1.0 NEG ai <1.0 neg normal Not Available [place] [address] [place], [address], 07/25/2023 17:21:29 07/20/19 24 07/25/2023 TIER 2 sjogren's antibody (ss-A) <1.0 NEG ai <1.0 neg normal Not Available [address] [place], [address], 07/25/2023 17:21:30 07/20/19 24 07/25/2023 TIER 2 sjogren's antibody (ss-B) <1.0 NEG ai <1.0 neg normal Not Available [address] [address] [place], [address], 07/25/2023 17:21:30 07/20/19 24 07/25/2023 TIER 2 scl-70 antibody <1.0 NEG ai <1.0 neg normal Not Available [place] [address] [place], [address], 07/25/2023 17:21:30 07/20/19 24 07/25/2023 TIER 2 giovanni-1 antibody <1.0 NEG ai <1.0 neg normal Not Available [address] [place], [address], 07/25/2023 17:21:30 07/20/19 24 07/25/2023 TIER 3 centromere B antibody <1.0 NEG ai <1.0 neg normal Not Available [place] [address] [place], [address], 07/25/2023 17:21:31 07/20/19 24 07/25/2023 TIER 3 ribosomal P antibody <1.0 NEG ai <1.0 neg normal The [place] does not rule out autoi mmune disea se mynor cteri zed by other autoa ntibo dy speci ficit ies such as rheum atoid arthr itis, autoi mmune hepat itis, prima ry bilia ry cirrh osis, autoi mmune thyro iditi s, [place] on's disea se, perni cious anemi a, autoi mmune neuro pathi es, vascu litis , tobias c disea se and bullo us disea se. Pleas e conta ct your local [facility] at[facility] if you are inter ested in addit ional testi ng. Not Available [facility] [address] [address] [place], [address], 07/25/2023 17:21:31 07/20/19 24 07/25/2023 INTER PRETA TION interpretati on All three negat rosario tiers indic ate the absen ce of detec table antib odies to compo nent loraine oleg consi sting of doubl e stran ded DNA (dsDN A), chrom atin, ribon ucleo prote in (PHYSIC[employer]) , Beaver /[employer] (Sm/R ORTHODONTIC LABORATORY TECHNICIAN), [place]aver (Sm), SS-A, SS-B, Giovanni-1, Scl-7 0, centr omere B and ribos omal P. A negat rosario resul t shoul d be inter prete d in the edel xt of the clini rusty and labor atory findi ngs. Not Available [facility] [address] [place] [address] [place], [address], 07/25/2023 17:21:31 08/10/19 24 08/11/2023 LIPID PANEL , STAND DOROTEO cholesterol, total 117 mg/dL <200 normal Not Available [facility] [address] [address] [place], [address], 08/11/2023 07:11:03 08/10/19 24 08/11/2023 LIPID PANEL , STAND DOROTEO HDL cholesterol 34 mg/dL > or = 50 low Not Available [facility] [address] [address] [place], [address], 08/11/2023 07:11:03 08/10/19 24 08/11/2023 LIPID PANEL , STAND DOROTEO triglyceride s 121 mg/dL <150 normal Not Available [facility] [address] [address] [place], [address], 08/11/2023 07:11:03 08/10/19 24 08/11/2023 LIPID PANEL , STAND DOROTEO LDL-choleste rol 63 mg/dL _(rusty c) normal Refer ence range : <100 Evan able range <100 mg/dL for prima ry preve ntion ; <70 mg/dL for patie nts with CHD or diabe tic patie nts with > or = 2 CHD risk facto rs. LDL-C is now calcu lated using the Thao n-Hop kins ashiau whitney n, which is a valid ated novel metho d provi ding suzanna r accur acy than the Fried mary equat ion in the estim ation of LDL-C . Thao cook SS et al. SILVIA. 2013; 310(1 9): 2061- 2068 (http ://ed ucati on.Qu [place] Eventche[employer]. com/f aq/FA Q164) Not Available [facility] [address] [place], [address], 08/11/2023 07:11:03 08/10/19 24 08/11/2023 LIPID PANEL , STAND DOROTEO chol/HDLC ratio 3.4 (calc ) <5.0 normal Not Available [facility] [address] [place], [address], 08/11/2023 07:11:03 08/10/19 24 08/11/2023 LIPID PANEL , STAND DOROTEO non HDL cholesterol 83 mg/dL _(rusty c) <130 normal For patie nts with diabe oleg plus 1 major ASCVD risk facto r, treat ing to a non-H DL-C goal of <100 mg/dL (LDL- C of <70 mg/dL ) is consi dered a thera peuti c optio n. Not Available [facility] [address] [place], [address], 08/11/2023 07:11:03 08/10/19 24 08/11/2023 COMPR EHENS ROSARIO METAB OLIC PANEL glucose 116 mg/dL 65-99 high Fasti ng refer ence inter catherine For someo ne witho ut known diabe oleg, a gluco se value betwe en 100 and 125 mg/dL is consi stent with predi abete s and shoul d be confi rmed with a follo w-up test. Not Available [address], [address], 08/11/2023 07:11:04 08/10/19 24 08/11/2023 COMPR EHENS ROSARIO METAB OLIC PANEL urea nitrogen (BUN) 18 mg/dL 7-25 normal Not Available [facility] [address], [address], 08/11/2023 07:11:04 08/10/19 24 08/11/2023 COMPR EHENS ROSARIO METAB OLIC PANEL creatinine 0.79 mg/dL 0.50-0 .99 normal Not Available [address], [address], 08/11/2023 07:11:04 08/10/19 24 08/11/2023 COMPR EHENS ROSARIO METAB OLIC PANEL eGFR 92 mL/mi n/1.7 3m2 > or = 60 normal Not Available [address], [address], 08/11/2023 07:11:04 08/10/19 24 08/11/2023 COMPR EHENS ROSARIO METAB OLIC PANEL BUN/creatini ne ratio SEE NOTE: (calc ) 6-22 Not Repor marysol: BUN and Creat inine are withi n refer ence range . Not Available [facility] [address], [address], 08/11/2023 07:11:04 08/10/19 24 08/11/2023 COMPR EHENS ROSARIO METAB OLIC PANEL sodium 140 mmol/ L 135-14 6 normal Not Available [facility] [address], [address], 08/11/2023 07:11:04 08/10/19 24 08/11/2023 COMPR EHENS ROSARIO METAB OLIC PANEL potassium 4.1 mmol/ L 3.5-5. 3 normal Not Available [address], [address], 08/11/2023 07:11:04 08/10/19 24 08/11/2023 COMPR EHENS ROSARIO METAB OLIC PANEL chloride 104 mmol/ L 98-110 normal Not Available [address], [address], 08/11/2023 07:11:04 08/10/19 24 08/11/2023 COMPR EHENS ROSARIO METAB OLIC PANEL carbon dioxide 24 mmol/ L 20-32 normal Not Available [address], [address], 08/11/2023 07:11:04 08/10/19 24 08/11/2023 COMPR EHENS ROSARIO METAB OLIC PANEL calcium 9.3 mg/dL 8.6-10 .2 normal Not Available [address], [address], 08/11/2023 07:11:04 08/10/19 24 08/11/2023 COMPR EHENS ROSARIO METAB OLIC PANEL protein, total 7.3 g/dL 6.1-8. 1 normal Not Available [address], [address], 08/11/2023 07:11:04 08/10/19 24 08/11/2023 COMPR EHENS ROSARIO METAB OLIC PANEL albumin 4.2 g/dL 3.6-5. 1 normal Not Available [address], [address], 08/11/2023 07:11:04 08/10/19 24 08/11/2023 COMPR EHENS ROSARIO METAB OLIC PANEL globulin 3.1 g/dL_ (calc ) 1.9-3. 7 normal Not Available [address], [address], 08/11/2023 07:11:04 08/10/19 24 08/11/2023 COMPR EHENS ROSARIO METAB OLIC PANEL albumin/glob ulin ratio 1.4 (calc ) 1.0-2. 5 normal Not Available [address], [address], 08/11/2023 07:11:04 08/10/19 24 08/11/2023 COMPR EHENS ROSARIO METAB OLIC PANEL bilirubin, total 1.1 mg/dL 0.2-1. 2 normal Not Available [address], [address], 08/11/2023 07:11:04 08/10/19 24 08/11/2023 COMPR EHENS ROSARIO METAB OLIC PANEL alkaline phosphatase 90 U/L 31-125 normal Not Available [address], [address], 08/11/2023 07:11:04 08/10/19 24 08/11/2023 COMPR EHENS ROSARIO METAB OLIC PANEL AST 17 U/L 10-35 normal Not Available [address], [address], 08/11/2023 07:11:04 08/10/19 24 08/11/2023 COMPR EHENS ROSARIO METAB OLIC PANEL ALT 23 U/L 6-29 normal Not Available [address], [address], 08/11/2023 07:11:04 08/10/19 24 08/11/2023 HEPAT ITIS PANEL (REFL ) hepatitis A Ab, total (refl) NON-RE ACTIVE non-re active normal Our recor ds indic ate that you have order ed a clien t custo m refle x order code. Only the initi al test was perfo rmed becau se we do not have a clien t custo m refle x testi ng autho rizat ion reque st form on file for you. Pleas e conta ct a clien t servi ce repre senta tive if you would like addit ional testi ng done on this patie nt or conta ct your sales repre senta tive to obtai n a clien t custo m refle x testi ng autho rizat ion reque st form. Not Available [address] [address] [place], [address], 08/11/2023 06:01:48 08/10/19 24 08/11/2023 HEPAT ITIS PANEL (REFL ) hepatitis B surface antibody ql REACTI VE non-re active abnormal Not Available [address] [address] [place], [address], 08/11/2023 06:01:48 08/10/19 24 08/11/2023 HEPAT ITIS PANEL (REFL ) hepatitis B surface antigen NON-RE ACTIVE non-re active normal For addit ional ameliar amina estrada e refer to http: //MC10 terry n.que stdia gnost ics.c om/fa q/FAQ 202 (This link is being provi ded for infor matio nal/ educa judy l purpo ses only. ) Not Available [employer] [address] [address] [place], [address], 08/11/2023 06:01:48 08/10/19 24 08/11/2023 HEPAT ITIS PANEL (REFL ) hepatitis B core Ab total NON-RE ACTIVE non-re active normal For addit ional ameliar amina estrada e refer to http: //MC10 catio n.que stdia gnost ics.c om/fa q/FAQ (This link is being provi ded for infor matio nal/ educa judy l purpo ses only. ) Not Available [facility] [address] [address] [place], [address], 08/11/2023 06:01:48 08/10/19 24 08/11/2023 HEPAT ITIS PANEL (REFL ) hepatitis C antibody NON-RE ACTIVE non-re active normal HCV antib kuldip was non-r eacti ve. There is no labor atory evide nce of HCV infec tion. In most cases , no furth er actio n is requi red. Howev er, if recen t HCV expos ure is suspe cted, a test for HCV RNA (test code 33775 ) is sugge sted. For addit ional infor harriett n pleas e refer to http: //[facility] terry cook.que stdia gnost ics.c om/fa q/FAQ 22v1 (This link is being provi ded for infor harriett nal/ educa judy l purpo ses only. ) Not Available [facility] [address] [place], [address], 08/11/2023 06:01:48 08/07/1908/03/2023 CT, abdom en, w/wo contr ast No observ ation record ed. [email or web address] [facility] [address] [place], [address], 08/09/2023 14:36:10 08/24/19 24 imagi ng/di agnos tic resul t No observ ation record ed. [email or web address] Not Available 2023 08:58:45 Result Notes None recorded. Problems Name Problem SNOMED Code Status Onset Date Resolution Date Notes Provider Name and Address Organization Details Recorded Time Cholecys tectomy planned 242191238 Completed 199403/06/2017 Cholecys tectomy - Status is Inactive ; Date: 1994; 03/06/20 17 5:30PM by Shannan Eller CMT, Ewaati on/Adden dum; Promoted ; acuity set as *; Not Available [facility] 3 03:12:56 Nicotine dependen ce 61506540 Completed 201603/06/2017 Smoker - Status is Inactive ; 03/06/20 17 5:30PM by Shannan Eller CMT, Annotati on/Adden dum; Promoted ; acuity set as *; Not Available [facility] 3 03:12:58 Fibromya lgia 550189468 Completed 201603/06/2017 fibromya lgia - Status is Inactive ; 03/06/20 17 5:30PM by Shannan Eller CMT, Annotati on/Mulu sharma; Promoted ; acuity set as *; Not Available [facility] 3 03:13:01 Hypothyr oidism 12792323 Active 2023 GIOVANNI MUNOZ [facility] 4 11:51:57 Anxiety 07471554 Active 2023 GIOVANNI MUNOZ [facility] 4 11:52:07 Hypergly cemia 70118195 Active 2023 GIOVANNI MUNOZ [facility] 4 11:52:14 Hyperten sive disorder 24929388 Active 2023 GIOVANNI MUNOZ [facility] 4 11:52:22 Allergic rhinitis 18526663 Active 2023 GIOVANNI MUNOZ [facility] 4 11:52:55 Hypercho lesterol emia 93008949 Active 2023 GIOVANNI MUNOZ [facility] 4 11:54:58 Rheumato id arthriti s 79322090 Active 2023 JOANNE HERNANDEZ [facility] 4 16:10:46 Problem Notes None recorded. Procedures Surgical History Date Name Laterality Status Provider Name and Address Organization Details Recorded Time 04/09/20 23 colonoscopy completed GIOVANNI MUNOZ [facility] 04/16/2023 11:00:50 12/13/19 22 Date of Last Pap Smear completed GIOVANNI MUNOZ [facility] 12/26/2022 14:56:09 cholecystectomy completed IGOVANNI MUNOZ [facility] 12/26/2022 14:56:55 Cpap full face mask completed GIOVANNI MUNOZ [facility] 12/26/2022 14:57:10 Imaging Results None recorded. Procedure Notes None recorded. Medical Equipment None Reported. Allergies Allergen ID Allergen Name Allergen Category Reaction Reaction Severity Criticality Documentation Date Start Date Code Code System Note Provider Name and Address Organization Details Recorded Time 27909 phenazopy ridine hydrochlo ride medicatio n Not available Not available Not available 12/09/2022 7 RxNorm Comme nt: Recor ded 06/27 2:06P M by Priti Chen Offic e Visit ; Bunny gregg; Bhavna doran ce: *; Reaso n: Drug aller gy; ; Not Available [facility] 3 02:24:25 20392 clindamyc in Not available Not available Not available low 07/12/2023 2582 RxNorm throa t burni ng GIOVANNI MUNOZ [facility] 4 12:21:43 Medications Name Sig Start Date Stop Date Status Note LastModified by Organization Details LastModified Time cyclobenz aprine 10 mg tablet TAKE 1 TABLET BY MOUTH TWICE DAILY NEEDED active Not Available Not Available No t Available medroxypr ogesteron e 10 mg tablet TAKE 1 TABLET BY MOUTH EVERY DAY ON calender DAYS 1-10 active Not Available Not Available No t Available doxycycli ne hyclate 100 mg capsule take 1 capsule BY MOUTH TWICE DAILY 12/22 completed Not Available Not Available Not Available clindamyc in HCl 300 mg capsule Take 1 capsule 3 times a day by oral route for 5 days. completed Not Available Not Available Not Available prednison e 20 mg tablet take TWO tablets BY MOUTH daily FOR FIVE DAYS completed Not Available Not Available Not Available lovastati n 40 mg tablet TAKE 1 TABLET BY MOUTH AT BEDTIME 2023 active Not Available Not Available Not Avai lable Accu-Chek Softclix Lancets USE DIRECTED 2023 active Not Available Not Available Not Avai lable Zyrtec 10 mg tablet daily, as needed active 0; Recorded 06/27/19 23 2:07PM by Kb Chen, Office Visit; Not Available Not Available Not Available levothyro xine 100 mcg tablet TAKE 1 TABLET BY MOUTH EVERY DAY 2023 active Not Available Not Available Not Avai lable losartan 100 mg-hydroc hlorothia zide 25 mg tablet TAKE 1 TABLET BY MOUTH EVERY DAY 2023 active Not Available Not Available Not Avai lable propranol ol 10 mg tablet TAKE 1 TO 2 TABLETS BY MOUTH EVERY 4 HOURS NEEDED FOR SHORTNES S OF BREATH OR FAST HEART RATE 07/29 completed Not Available Not Available Not Available propranol ol 20 mg tablet TAKE 1 TO 2 TABLETS BY MOUTH EVERY 4 HOURS NEEDED FOR SHORTNES S OF BREATH OR FHR 07/29 completed Not Available Not Available Not Available ondansetr on 4 mg disintegr ating tablet DISSOLVE ONE TABLET BY MOUTH THREE TIMES DAILY NEEDED for 10 days completed Not Available Not Available Not Available metoprolo l tartrate 25 mg tablet take 1/2 tablet BY MOUTH TWICE DAILY active Not Available Not Available No t Available medroxypr ogesteron e First 10 days of the month 12/22 completed 0; Recorded 06/27/19 23 2:07PM by Kb Chen, Office Visit; Not Available Not Available Not Available [facility] Levothyro xine Sodium daily 12/22 completed LB/ak; 419[address]; Recorded 05/16/19 23 8:55AM by Kb Chen (Authori stefano through Lizzeth Kolb MD), Refill Request; Refill Quantity : 90; Tablet; Not Available Not Available Not Available Accu-Chek Guide test strips USE DIRECTED 2023 active Not Available Not Available Not Avai lable Accu-Chek Guide Glucose Meter USE DIRECTED active Not Available Not Available No t Available losartan potassium (bulk) daily 12/22 completed LB/sudhakar; [address]; Recorded 10/18/19 22 8:16AM by Giovanni Munoz LPN (Authori stefano through Lizzeth Kolb MD), Refill Request; Refill Quantity : 90; Tablet; Not Available Not Available Not Available Vitals Date Recorded Body height Body mass index (BMI) Body weight Body temperature Oxygen saturation Oxygen saturation in Arterial blood by Pulse oximetry Heart rate Systolic And Diastolic Provider Name and Address Organization Details Last Updated DateTime 4 165.1 cm 42.8 kg/m2 695407. 24 g 97.3 [degF] 98 % 98 % 90 /min 130/80 mm[Hg] GIOVANNI [facility] 4 11:47:14 Date Recorded Body height Body mass index (BMI) Body weight Body temperature Oxygen saturation Oxygen saturation in Arterial blood by Pulse oximetry Heart rate Systolic And Diastolic Provider Name and Address Organization Details Last Updated DateTime 3 165.1 cm 42.1 kg/m2 121670. 87 g 97.4 [degF] 99 % 99 % 78 /min 140/85 mm[Hg] GIOVANNI MUNOZ [facility] 3 14:53:43 Date Recorded Body height Body mass index (BMI) Body weight Oxygen saturation Oxygen saturation in Arterial blood by Pulse oximetry Heart rate Body temperature Systolic And Diastolic Provider Name and Address Organization Details Last Updated DateTime 3 165.1 cm 43.3 kg/m2 283402. 72 g 99 % 99 % 79 /min 97.9 [degF] 122/72 mm[Hg] Justyna Ramírez [facility] 3 09:48:29 Social History None recorded. Functional Status None recorded. Mental Status None recorded. Family History Relationship Description Onset Age of this Age Resolved Age Notes LastModified by Organization Details LastModified Time Mother Diabetes mellitus [email or web address] Not available 08/2023 11:53:28 Mother Hypertensive disorder [email or web address] Not available 08/2023 11:54:26 Mother Myocardial infarction [email or web address] Not available 08/2023 11:54:32 Mother Hypercholest erolemia [email or web address] Not available 08/2023 11:54:44 Sister Rheumatoid arthritis [email or web address] Not available 08/2023 11:55:28 Notes:cancer: sister. Medical History Condition Response Coronary Artery Disease N Other N Gout N Kidney Stones N Blood Diseases N Hyperthyroidism N Breast Cancer N Blood Transfusion N Hypothyroidism N Lung Disease N COPD N Depression N Defects or Inherited Disease N Developmental or Behavioral Disorders N Breast Problem N Difficulty Swallowing N Anesthesia Complications N Meniere's disease N Anxiety Disorder N Muscle, Joint, or Bone Problems N Vision or Eye Problems N Arthritis N Infertility N Polyps N Cancer N Stroke N Varicosities N Endometriosis N Bladder or Kidney Problems N High Cholesterol Y Liver Disease N Fibromyalgia N Headaches N Kidney Disease N Allergies/Hayfever N Heart Problems N Ear or Hearing Problems N Hospitalizations N Thyroid Problems N GI Problems N ADD/ADHD N Skin Problems N Eating Disorder N Anemia N Constipation N Mental Illness N Ovarian Cancer N Diabetes N Bedwetting N Seizures/Epilepsy N Tuberculosis N Eczema N Diverticulitis N Abuse/Domestic Violence N Asthma N Reflux/GERD N Hepatitis N Heart Disease N Pulmonary Embolism N Chronic Ear Infections N Pre-Eclampsia N Hypertension Y Chicken Pox N Autism Spectrum Disorder (ASD) N Osteoporosis N Thrombophilias N Gynecological History Statement/Question Response Abnormal Pap N Date of Last Pap Smear 12/12/2021 Obstetrics History GPAL:G 0 P 0 0 0 0 Immunizations Vaccine Type Date Status Note Provider Nam e and Address Organization Details Recorded Time Influenza, split virus, trivalent, preservative 0 completed Not Available [facility] 12/09/2022 02:26:15 Influenza, split virus, trivalent, preservative 5 completed Not Available [facility] 12/09/2022 02:26:15 Influenza, split virus, trivalent, preservative 7 completed Not Available [facility] 12/09/2022 02:26:15 Past Encounters Encounter ID Performer Location Encounter Start Date Encounter Closed Date Diagnosis/Indication Diagnosis SNOMED-CT Code Diagnosis ICD10 Code Diagnosis Note [id number] Lizzeth Kolb MD [facility] ([facility]) [address] [place] [address] 12/26/2022 14:15:54 01/01/2023 21:13:27 Impaired fasting glycemia 862125124 R73.01 Non-neoplastic nevus 195 411903 I78.1 monitor Essential hypertension 59155807 I10 controlled . BP was better at cardiologi sts office. Intermitte nt palpitations 698703762 R00.2 full cardio work-up with echo/ekg/h olter - likely just PVCs. I reassured the patient that event lluvia we may not have an explainati on for the palps, she should not worry about them cause the bad things have been ruled out. Adult heal th examination 318020373 Z00.00 [id number] SESAR OTERO PA-C [facility] ([facility]) [address] [place] [address] 04/27/2023 09:08:54 04/27/2023 10:34:09 Gout 52264818 M10.9 [id number] Lizzeth Kolb MD [facility] ([facility]) [address] [place] [address] 07/16/2023 11:35:15 07/16/2023 12:50:04 Diabetes mellitus 83390516 E11.9 NEW dx today. discussed diabetic diet. check sugars fasting and 1 hr after breakfast. C-reactive protein above reference range 8160484244 99518 R79.82 pt would like it rechecked. 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 Right flank pain 5124592 09 R10.9 RUQ bulge/swel ling. I suspect normal variation. Health Concerns Section Related Observation LastModified by Organization Detai ls LastModified Time None Recorded Concern Status LastModified by Organization Details LastModified Time None Recorded Advance Directives Directive None Recorded Payers Insurance Date Sequence Insurance Name Policy Number Policy Negrete Covered Member ID Negrete Member ID Guarantor Name 08/10/2023 1 [place] [id number] Jyoti Magallanes [id number] Jyoti Magallanes Notes Date Note Type Note Provider Name and Address Organization Details Recorded Time 12/26/2022 text/html Abnormal BleedingReported bypatient.Onset/Timing :every cycle; irregular Quality:light; heavy Associated Symptoms:no pelvic pain;bloating weight gain despite watching what she eats..has tried everything. got on the CPAP machine after she saw me last time. since july had not had a period until nowthinks she is going through jonathan-menopause cardio did stress test and ekg, holter monitor, echo...cardio didnt find anything. she just wants to know what is causing her palpitations, she wants to know Lizzeth Kolb MD [address] [place] [address], [phone], [facility] [place] [facility], LJaymie. 01/01/2023 14:41:15 04/27/2023 text/html Musculoskeletal PainReported bypatient.Location:alexis n radiating to the legs left; left great toe Quality:sharp Severity:driving impairment;worsening;i nterferes with sleep;interferes with work/school Duration:present <1 month Timing:sudden Aggravating factors:movement/posit ioning Associated Symptoms:no fever ADLs Affected:walking SESAR OTERO PA-C [address] [place] [address], [phone], [facility], L[place]. 04/27/2023 10:22:07 07/16/2023 text/html pt concerned abo ut her CRP being elevated. sister and niece both have RA. still has swelling on her right sidesays we did u/s on it a long time ago but never a CTshe just knows she doesnt feel right. Lizzeth Kolb MD [address] [place] [address], [phone], [facility], LJaymie. 07/16/2023 12:44:33 OBGyn Episode No OBEpisode recorded.
--- OUTSIDE RECORDS SUMMARY | 2024-11-16 18:08 | XMS_ITS | Encounter Summary ---
Author Organization [facility] Address [address] [place] [address] Care Team Providers Care [employer] Operator Name Role Phone Lizzeth Kolb MD Primary Care Provider [phone] Reason for Referral * Outpatient Services (Routine) - Closed Specialty Diagnoses / Procedures Referred By Calli rodrigues Referred To Contact Radiology Diagnoses Lump or mass in breast Procedures MAMMO BREAST US RIGHT LTD Escobar Everett DO [address] [address] Phone: tel: fax: [facility] [address] [facility] [address] [place] [address] Phone: tel: fax: Referral ID Status Reason Start Date Expiration Date V isits Requested Visits Authorized [id number] Closed [facility] TO SCHEDULE (SGF) 08/26/2014 09/26/2015 1 1 Encounter Details Date Type Department Care Team (Latest Contact Info) Description 08/26/2014 Ancillary Orders [facility] Pre-Registration [place] CALL TO MAKE APPOINTMENT ONLY [address] [place] [address] Escobar Everett DO [address] [facility] [address] [place] [address] Lump or mass in breast (Primary Dx) Social History Tobacco Use Types Packs/Day Years Used Date Smoking Tobacco: Former Alcohol Use Standard Drinks/Week Comments No 0 (1 standard drink = 0.6 oz pur e alcohol) Comments No Sex and Gender Information Value Date Recorded Sex Assigned at Not on file 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 No suspicious sonographic findings are identified. A discrete or worrisome mass was not convincingly palpated on exam today. Continued observation of any palpable lumps is recommended clinically. From an imaging point of view, I would recommend the patient return in April 2015 for her routine screening mammogram. Patient received the result and recommendation letter. Ana María 1211 PM - uploaded from [employer] - Narrative 09/06/2014 3:13 PM CDT REASON FOR EXAM: The patient had a recent clinical breast exam and there was suspected to be a palpable lump on the right at the 9 o'clock position. FAMILY HX.-BREAST Ca: Negative. IMAGING PERFORMED: Directed right breast ultrasound. ULTRASOUND FINDINGS: RIGHT BREAST: Sonographic evaluation was carried out from the 8 to 10 o'clock location laterally and dense fibrocystic tissue is noted, no suspicious masses were identified. I examined the patient and there is some nodular tissue at the 9 o'clock position and direct evaluation carried out over this area by myself revealed dense fibrocystic tissue. No suspicious masses were identified. The patient then stated that she thought a lump was perhaps identified by Dr. June in the upper medial aspect of the right breast. I examined that area and again what feels like fibrocystic tissue was noted and direct sonographic evaluation confirmed fibrous tissue without suspicious masses being identified. us Escobar Everett DO MAMMO ORDERABLES Final Res ult documented in this encounter Visit Diagnoses Diagnosis Lump or mass in breast- Primary Lump or mass in breast documented in this encounter Care Teams [employer] Operator Relationship Specialty Start Date End Date Lizzeth Kolb MD [address] [place] [address] PCP - General Family Practice 05/08/14 documented as of this encounter
--- OUTSIDE RECORDS SUMMARY | 2024-11-16 18:08 | XMS_ITS | Encounter Summary ---
Author Organization [facility] Address [address] [place] [address] Care Team Providers Care Director Workers Compensation Name Role Phone Lizzeth Kolb MD Primary Care Provider Reason for Referral * Outpatient Services (Routine) - Closed Specialty Diagnoses / Procedures Referred By Calli rodrigues Referred To Contact Diagnoses Visit for screening mammogram Procedures MAMMO SCREEN BILAT W OR WO CAD Stevenson Dillard MD [address] [address] Phone: tel: fax: [facility] Pre-Registration [place] CALL TO MAKE APPOINTMENT ONLY [address] [place] [address] Phone: tel: fax: Referral ID Status Reason Start Date Expiration Date Visits Re quested Visits Authorized [id number] Closed 08/09/2016 09/09/2017 1 1 Encounter Details Date Type Department Care Team (Latest Contact Info) Description 08/09/2016 Ancillary Orders [facility] Pre-Registration [place] CALL TO MAKE APPOINTMENT ONLY [address] [place] [phone] Stevenson Dillard MD [address] [address] Visit for screening mammogram Social History Tobacco Use Types Packs/Day Years Used Date Smoking Tobacco: Former Alcohol Use Standard Drinks/Week Comments No 0 (1 standard drink = 0.6 oz pur e alcohol) Comments No Sex and Gender Information Value Date Recorded Sex Assigned at Not on file 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 Gender Identity Not on file Sexual Orientation Not on file Occupation Industry Job Start Date Job End Date Not on file Not on file Not on file Not on file documented as of this encounter Plan of Treatment Not on file documented as of this encounter Results * MAMMO SCREEN BILAT W OR WO CAD (08/28/2016 8:54 AM CDT) Anatomical Region Laterality Modality Breast Bilateral Mammography Narrative 08/28/2016 12:14 PM CDT Bilateral Mammogram Reason for Exam: Screening Comparison: Compared to: 09/03/2015 MAMMO DIGITAL DIAG UNI RIGHT, 08/19/2015 MAMMO DIGITAL SCREEN BILAT, 06/05/2014 MAMMO DIGITAL DIAG UNI LEFT, 05/08/2014 MAMMO DIGITAL SCREEN BILAT, and 08/03/2011 MAMMO DIGITAL DIAG BILAT Findings: Bilateral CC and MLO views were obtained. This examination was reviewed with the aid of a computer-aided detection system(CAD). The breast tissue is dense. No significant new findings since the prior mammogram(s). us Stevenson Dillard MD MAMMO ORDERABLES Final Resul t documented in this encounter Visit Diagnoses Diagnosis Visit for screening mammogram Other screening mammogram Visit for screening mammogram Other screening mammogram documented in this encounter Care Teams Director Workers Compensation Relationship Specialty Start Date End Date Lizzeth Kolb MD [address] [place] [address] PCP - General Family Practice 05/08/14 documented as of this encounter
--- OUTSIDE RECORDS SUMMARY | 2024-11-16 18:09 | XMS_ITS | Encounter Summary ---
Author Organization [facility] Address [address] [place] [address] Care Team Providers Care Accordion Tuner Name Role Phone Mahnaz Barrientos MD Primary Care Provider Encounter Details Date Type Department Care Team (Late Contact Info) Description 10/16/2024 Results Follow-Up [place] [address] [place] [address] Mulu Avilez APRN-[place] [address] [facility] [address] [place] [address] ESTRADIOL, FSH Social History Tobacco Use Types Packs/Day Years Used Date Smoking Tobacco: Former Alcohol Use Standard Drinks/Week Comments No 0 (1 standard drink = 0.6 oz pur e alcohol) Comments No Sex and Gender Information Value Date Recorded Sex Assigned at Not on file Legal Sex Female 5:44 AM COMBINATION SAW OPERATOR Gender Identity Not on file Sexual Orientation Not on file documented as of this encounter Plan of Treatment Upcoming Encounters Date Type Department Care Team (Late st Contact Info) Description 12/17/2024 2:15 PM CDT Office Visit [place] [address] [place] [address] Stevenson Dillard MD [address] [place] [address] 06/15/2025 1:30 PM COMBINATION SAW OPERATOR Office Visit [place] [address] [place] [address] Stevenson Dillard MD [address] [facility] [address] [place] [address] 07/17/2025 9:00 AM COMBINATION SAW OPERATOR [facility]oint[facility] [address] [facility] [address] [place] [address] Stevenson Dillard MD [address] [facility] [address] [place] [address] documented as of this encounter Visit Diagnoses Not on filedocumented in this encounter Care Teams Accordion Tuner Relationship Specialty Start Date End Date Mahnaz Barrientos MD [address] [facility] [address] [place] [address] PCP - General Family Practice 02/07/24 documented as of this encounter
--- OUTSIDE RECORDS SUMMARY | 2024-11-16 18:09 | XMS_ITS | Encounter Summary ---
Author Organization [facility] Address [address] [place] [address] Care Team Providers Care Cover Marker Name Role Phone Lizzeth Kolb MD Primary Care Provider Encounter Details Date Type Department Care Team (Late st Contact Info) Description 09/19/2002 Emergency [facility] Emergency Department [address] [place] [address] [place] [id number] [place] [address] FX PHALANX, FOOT-CLOSED (Primary Dx) Social History Tobacco Use Types Packs/Day Years Used Date Smoking Tobacco: Never Assessed Comments Unknown Sex and Gender Information Value Date Recorded Sex Assigned at Not on file Legal Sex Female 6:31 AM SECURITIES TRADER Gender Identity Not on file Sexual Orientation Not on file documented as of this encounter Plan of Treatment Not on file documented as of this encounter Visit Diagnoses Diagnosis Closed fracture of one or more phalanges of foot- Primary documented in this encounter Care Teams Cover Marker Relationship Specialty Start Date End Date Lizzeth Kolb MD [address] [place] [address] PCP - General Family Practice 05/08/14 documented as of this encounter
--- OUTSIDE RECORDS SUMMARY | 2024-11-16 18:09 | XMS_ITS | Encounter Summary ---
Author Organization [facility] Address [address] [place] [address] Care Team Providers Care Getter Welder Name Role Phone Lizzeth Kolb MD Primary Care Provider [phone] Encounter Details Date Type Department Care Team (Latest Contact Info) Description 12/12/2018 Ancillary Orders [facility] [address] [address] [place] [address] Stevenson Dillard MD [address] [facility] [address] [place] [address] Inconclusive mammography Social History Tobacco Use Types Packs/Day Years Used Date Smoking Tobacco: Former Alcohol Use Standard Drinks/Week Comments No 0 (1 standard drink = 0.6 oz pur e alcohol) Comments No Sex and Gender Information Value Date Recorded Sex Assigned at Not on file Legal Sex Female 6:31 AM MANAGER TRANSITION Gender Identity Not on file Sexual Orientation Not on file Occupation Industry Job Start Date Job End Date Not on file Not on file Not on file Not on file documented as of this encounter Plan of Treatment Not on file documented as of this encounter Visit Diagnoses Diagnosis Inconclusive mammography Inconclusive mammogram documented in this encounter Care Teams Getter Welder Relationship Specialty Start Date End Date Lizzeth Kolb MD [address] [place] [address] PCP - General Family Practice 05/08/14 documented as of this encounter
--- OUTSIDE RECORDS SUMMARY | 2024-11-16 18:09 | XMS_ITS | Clinical Summary ---
Author Organization [facility] Address [address] [place] [address] Care Team Providers Care Parking Lot Spotter Name Role Phone Mahnaz Barrientos MD Primary Care Provider Allergies Active Allergy Reactions Criticality Noted Date Comments Clindamycin Other (See Comments) High 02/07/2024 Her throat started to burn Phenazopyridine Hcl Other (See Comments) 10/15/2024 phenazopyridine hydrochloride Medications levothyroxine 100 mcg tablet 12/01/19 20 Active lovastatin (MEVACOR) 40 mg tablet Take 40 mg by mouth daily at bedtime. 10/21/19 22 Active hydroCHLOROthiaz eric 25 mg tablet Take 25 mg by mouth daily. Active cetirizine (ZyrTEC) 10 mg tablet Take 10 mg by mouth 1 time daily as needed. Active metoprolol tartrate (LOPRESSOR) 25 mg tablet Take 25 mg by mouth 2 times daily. Active estradioL (ESTRACE) 1 mg tablet Take 1 Tablet (1 mg) by mouth daily at bedtime. 90 Tablet 3 05/13/20 24 Active losartan (COZAAR) 100 mg tablet Take 100 mg by mouth daily. Active oxyCODONE (ROXICODONE) 5 mg tabletIndication s:S/P complete hysterectomy Take 1 Tablet (5 mg) by mouth every 6 hours as needed for Pain. Max Daily Amount: 20 mg 20 Tablet 5 2:18 PM CDT 11/14/19 25 Active progesterone micronized (Prometrium) 100 mg Capsule Take 1 Capsule (100 mg) by mouth daily at bedtime. 90 Capsule 3 05/13/20 24 025 Discontinued medroxyPROGESTER one (PROVERA) 10 mg tablet TAKE 1 TABLET BY MOUTH EVERY DAY ON DAYS 1-10 30 Tablet 3 07/04/19 25 025 Discontinued Active Problems Problem Noted Date Diagnosed Date HTN (hypertension) 05/26/2022 Moderate dysplasia of cervix (PRANEETH II) 04/15/2013 AGCUS (atypical glandular ce lls of undetermined significance) on Pap smear 02/28/2013 Papanicolaou smear of cervix with atypical squamous cells cannot exclude high grade squamous intraepithelial lesion (ASC-H) 08/22/2012 Uterine prolapse 03/20/2011 Encounters Date Type Department Care Team Description 11/13/2024 7:20 AM CDT Anesthesia Event [facility] Operating Room [address] [place] [phone] Hong Estrada DO 11/13/2024 7:20 AM CDT - 11/13/2024 9:44 AM CDT Surgery [facility] Operating Room [facility] [place] [address] Stevenson Dillard MD HYSTERECTOMY TOTAL LAPAROSCOPIC 11/13/2024 5:15 AM CDT - 11/13/2024 2:24 PM CDT Hospital Encounter [facility] 3J Pre-Op [address] [place] [address] Stevenson Dillard MD Uterine prolapse Discharge Disposition: Home or Self Care 11/11/[address] [place] [phone] Stevenson Dillard MD Surgery Arrival Time/DLL 10/28/2024 11:00 AM CDT - 10/28/2024 11:59 PM CDT Hospital Encounter [facility] Pre Admission Testing Center [address] [place] [phone] Stevenson Dillard MD Discharge Disposition: Home or Self Care 10/28/2024 10:15 AM CDT Office Visit [address] [place] [address] Stevenson Dillard MD Pre-op testing (Primary Dx) 10/28/2024 External Device Data STL ABSTRACTION Provider, Abstract 10/28/2024 Orders Only [address] [place] [address] Stevenson Dillard MD 10/16/2024 Results Follow-Up [address] [place] [address] Mulu Avilez APRN-BC ESTRADIOL, FSH 10/15/2024 9:00 AM CDT Office Visit [address] [place] [address] Mulu Avilez APRN-BC Menopausal symptoms (Primary Dx); Uterine prolapse 10/15/[address] [place] [address] Mulu Avilez APRN-BC Erroneous encounter-disregard 10/14/[address] [place] [address] Stevenson Dillard MD sooner appt/DLL 10/02/2024 External Device Data STL ABSTRACTION Provider, Abstract 10/01/2024 External Device Data STL ABSTRACTION Provider, Abstract 09/30/2024 External Device Data STL ABSTRACTION Provider, Abstract 08/26/2024 External Device Data STL ABSTRACTION Provider, Abstract from Last 3 Months Family History Medical History Relation Name Comments Heart Disease Maternal Grandmother Breast Cancer Neg Hx Negative Respo nse--See Media tab Cancer - Other Neg Hx Melanoma Neg Hx Ovarian Cancer Neg Hx Pancreatic Cancer Neg Hx Uterine or Endometrial Cance r, Not Including Cervical Neg Hx Relation Name Status Comments Maternal Grandmother Social History Tobacco Use Types Packs/Day Years Used Date Smoking Tobacco: Former Tobacco Cessation:Counseling Given: Not Answered Alcohol Use Standard Drinks/Week Comments No 0 [...] on file Legal Sex Female 5:44 AM SHAPER OPERATOR Gender Identity Not on file Sexual Orientation Not on file Last Filed Vital Signs [...] Mass Index 40.98 11/13/2024 5:28 AM CDT Plan of Treatment Upcoming Encounters Date Type Department Care Team (Late st Contact Info) Description 12/17/2024 2:15 PM CDT Office Visit [address] [address] Stevenson Dillard MD [address] [place] [address] 06/15/2025 1:30 PM SHAPER OPERATOR Office Visit [address] [address] Stevenson Dillard MD [address] [place] [address] 07/17/2025 9:00 AM SHAPER OPERATOR Appointment [facility] [address] [facility] [address] [place] [address] Stevenson Dillard MD [address] [facility] [address] [place] [address] Health Maintenance Due Date Last Done Comments Pre-Diabetes and Diabetes Screening 1974 DTAP/TDAP/TD VACCINES (1 - Tdap) 1993 HEPATITIS B VACCINES (1 of 3 - 19+ 3-dose series) 1993 FIT-DNA Q 3 years 2019 FIT/FOBT Q 1 year 2019 Flex Sig/CT Colonography Q 5 years 2019 ZOSTER VACCINE (1 of 2) 2024 INFLUENZA VACCINE (#1) 2024 7, 05/14/2014, BREAST CANCER SCREENING 07/18/2025 07/19/19 25, 07/18/2023, 05/26/2022, Additional history exists PAP SMEAR 05/12/2027 05/12/2024, 12/2022, 01/10/2022, Additional history exists CERVICAL CANCER SCREENING 05/12/2029 HPV/Cotest (21-29) 05/12/2029 05/12/2024, 1 05/21/2022, 01/10/2022, Additional history exists HPV/Cotest (30-65) 05/12/2029 05/12/2024, 1 05/21/2022, 01/10/2022, Additional history exists COLORECTAL SCREENING 04/09/2033 04/09/2023, 04/08/20 23 Colorectal Cancer Screening 04/09/2033 Medical Devices Implanted Type Area Md Do Resident Urgent Care Device Identifier Shelf Expiration Date Model / Serial / Lot Hemostatic Surgiflo 8ml W/ Thrombin 2994 - [id number] Implanted:Qty: 1 on 11/13/2024 by Stevenson Dillard MD at [facility] Hemostatic N/A: Abdomen [employer] [id number] 02/10/2026 2994 / / [id number] Procedures Procedure Name Priority Date/Time Associated Diagnosis Comments PROCEDURE PHOTOGRAPHS 11/16/2024 4:39 PM CDT TELEMETRY REPORT 11/16/2024 4:39 PM CDT POC GLUCOSE Routine 11/13/2024 9:16 AM CDT WA ANES INSERT ENDOTRACHEAL AIRWAY Routine 11/13/2024 7:30 AM CDT POC , URINE Routine 11/13/2024 5:54 AM CDT CBC WITHOUT DIFFERENTIAL Routine 10/28/2024 11:46 AM CDT Pre-op testing COMPREHENSIVE METABOLIC PANEL Routine 10/28/2024 11:46 AM CDT Pre-op testing FSH Routine 10/15/2024 10:37 AM CDT Menopausal symptoms ESTRADIOL Routine 10/15/2024 10:37 AM CDT Menopausal symptoms WA FIT&INSJ PESSARY/OTH INTRAVAGINAL SUPPORT AURE Routine 10/15/2024 9:00 AM CDT Uterine prolapse MAMMO 3D EJ SCREEN BILAT W OR WO CAD Routine 07/18/2024 10:02 AM SHAPER OPERATOR Visit for screening mammogram CERV/VAG CYTO SCREEN PAP W/HPV Routine 05/12/2024 1:02 PM SHAPER OPERATOR Well woman exam with routine gynecological exam from Last 3 Months or Most Recently Relevant to Health Maintenance Results * PROCEDURE PHOTOGRAPHS (11/16/2024 4:39 PM CDT) us Provider Scanning PROCEDURE/MINOR SURGICAL ORDER PRABHJOT Final Result * TELEMETRY REPORT (11/16/2024 4:39 PM CDT) us Provider Scanning ECG ORDERABLES Final Result * (ABNORMAL) POC GLUCOSE (11/13/2024 9:16 AM CDT) GLUCOSE POC 154(H) 74 - 99 mg/dL 11/13/2024 9:16 AM CDT [facility] SPECIMEN SOURCE, GLUCOSE POC Capillary 11/13/2024 9:16 AM CDT [facility] Blood, whole 11/13/2024 9:16 AM CDT 11/13/2024 9:23 AM CDT us Stevenson Dillard MD POINT OF CARE TESTING Final Result [facility] CLIA # [id number] [address] [place] [address] [place] [address] * WA ANES INSERT ENDOTRACHEAL AIRWAY (11/13/2024 7:30 AM CDT) Narrative Peg Finney AA-C - 11/13/2024 7:30 AM CDT Peg Finney AA-C 11/13/2024 7:40 AM Airway Date/Time: 11/13/2024 7:30 AM Location: OR Plan: elective intubation Patient Identity Confirmed by: Verbally with patient and armband Airway: not difficult Staffing Performed: YOUTH SERVICES SPECIALIST/CAA Authorized by: Hong Estrada DO Performed by: [...] Additional Procedure Information: atraumatic and dentition unchanged us Hong Estrada DO PROCEDURE/MINOR SURGICA L ORDERABLES Final Result * POC , URINE (11/13/2024 5:54 AM CDT) Pathologist [facility] HCG QUAL URINE Negative Negative 11/13/2024 5:54 AM CDT [facility] Urine 11/13/2024 5:54 AM CDT 11/13/2024 5:45 AM CDT Narrative [facility] - 11/13/2024 5:54 AM CDT Positive : Result is greater than or equal to 25 mIU/mL Negative: Result is less than 25 mIU/mL Invalid: Result is borderline or indeterminate,send to lab for serum test methodology. us Stevenson Dillard MD POINT OF CARE TESTING Final Result [facility] CLIA # [id number] [address] [place] [address] * (ABNORMAL) CBC WITHOUT DIFFERENTIAL (10/28/2024 11:46 AM CDT) [facility] WBC 8.1 4.8 - 10.8 K/uL 10/28/2024 2:13 PM CDT [facility] RBC 4.00(L) 4.20 - 5.40 M/uL 10/28/2024 2:13 PM CDT [facility] HEMOGLOBIN 11.7(L) 12.0 - 16.0 g/dL 10/28/2024 2:13 PM CDT [facility] HEMATOCRIT 36.4 36.0 - 46.0 % 10/28/2024 2:13 PM CDT [facility] MCV 91.0 84.0 - 103.0 fL 10/28/2024 2:13 PM CDT [facility] MCH 29.3 27.0 - 34.0 pg 10/28/2024 2:13 PM CDT [facility] MCHC 32.1 30.0 - 35.0 g/dL 10/28/2024 2:13 PM CDT [facility] PLATELETS 288 140 - 440 K/uL 10/28/2024 2:13 PM CDT [facility] MPV 10.1 8.9 - 12.8 fL 10/28/2024 2:13 PM CDT [facility] RDW 12.0 11.0 - 14.5 % 10/28/2024 2:13 PM CDT [facility] RDW-STDEV 40.7 37.0 - 54.0 fL 10/28/2024 2:13 PM T [facility] Blood Venipuncture / Unknown 10/28/2024 11:46 AM CDT 10/28/2024 2:05 PM CDT Stevenson Dillard MD HEMATOLOGY ORDERABLES Final Result [facility] CLIA # [id number] [address] [place] [address] * (ABNORMAL) COMPREHENSIVE METABOLIC PANEL (10/28/2024 11:46 AM CDT) SODIUM 141 136 - 145 mmol/L 10/28/2024 2:24 PM CDT [facility] POTASSIUM 3.8 3.5 - 5.1 mmol/L 10/28/2024 2:24 PM CDT [facility] CHLORIDE 107 98 - 107 mmol/L 10/28/2024 2:24 PM CDT [facility] CO2 22 22 - 29 mmol/L 10/28/2024 2:24 PM CDT [facility] CALCIUM 8.7 8.6 - 10.0 mg/dL 10/28/2024 2:24 PM CDT [facility] BUN 15 6 - 20 mg/dL 10/28/2024 2:24 PM T [facility] CREATININE 0.74 0.51 - 0.95 mg/dL 10/28/2024 2:24 PM [facility] GLUCOSE 147(H) 74 - 99 mg/dL 10/28/2024 2:24 PM T [facility] TOTAL PROTEIN 6.9 6.4 - 8.3 g/dL 10/28/2024 2:24 PM [facility] ALBUMIN 3.7 3.5 - 5.2 g/dL 10/28/2024 2:24 PM T [facility] BILIRUBIN TOTAL 0.7 0.0 - 1.0 mg/dL 10/28/2024 2:24 PM T [facility] ALKALINE PHOSPHATASE 89 35 - 104 U/L 10/28/2024 2:24 PM [facility] AST 14 10 - 35 U/L 10/28/2024 2:24 PM [facility] ALT 20 <=35 U/L 10/28/2024 2:24 PM [facility] GFR >60 >=60 mL/min/1.7 3 sq meter 10/28/2024 2:24 PM [facility] Comment:eGFR calculated with 2020 CKD-EPI equation. Vegetarian diet, extremely high or low muscle mass, and may affect results. Cystatin C with Glomerular Filtration Rate is a suitable alternative for these patients. ANION GAP 12 9 - 20 mmol/L 10/28/2024 2:24 PM T [facility] Blood Venipuncture / Unknown 10/28/2024 11:46 AM CDT 10/28/2024 2:05 PM CDT us Stevenson Dillard MD CHEMISTRY ORDERABLES Final R esult [facility] CLIA # [id number] [address] [place] [address] * ESTRADIOL (10/15/2024 10:37 AM CDT) ESTRADIOL 62 pg/mL [facility] Comment: Reference Range Follicular Phase: 19-144 Mid-Cycle: 64-357 Luteal Phase: 56-214 Postmenopausal: < or = 31 Reference range established on post-pubertal patient population. No pre-pubertal reference range established using this assay. For any patients for whom low Estradiol levels are anticipated (e.g. males, pre-pubertal children and hypogonadal/post-menopausal females), the [facility] Estradiol, Ultrasensitive, LCMSMS assay is recommended (order code 28076). Please note: patients being treated with the drug fulvestrant (Faslodex(R)) have demonstrated significant interference in immunoassay methods for estradiol measurement. The cross reactivity could lead to falsely elevated estradiol test results leading to an inappropriate clinical assessment of estrogen status. [facility] order code [id number], Ultrasensitive LC/MS/MS demonstrates negligible cross reactivity with fulvestrant. FASTING:NO FASTING: NO Test Performed at: [facility] [address] [place] [address] Guy Manuel Blood 10/15/2024 10:3 7 AM CDT 10/15/2024 10:38 AM CDT Mulu Avilez SCREEN MACHINE OPERATOR-BC CHEMISTRY ORDERABLES F inal Result [facility] [phone] [facility] [address] [place] [address] * FSH (10/15/2024 10:37 AM CDT) FSH 28.4 mIU/mL [facility] Comment: Reference Range Follicular Phase 2.5-10.2 Mid-cycle Peak 3.1-17.7 Luteal Phase 1.5- 9.1 Postmenopausal 23.0-116.3 FASTING:NO FASTING: NO Test [facility]formed [facility]: [facility] [address] [address] [address] Berenice Norman MD Blood 10/15/2024 10:3 7 AM CDT 10/15/2024 10:38 AM CDT Mulu STALLWORTH CHEMISTRY ORDERABLES F inal Result Performing Organization Address City/[facility] Co de Phone Number [facility] [phone] [facility] [address] [place] [address] * WA FIT&INSJ PESSARY/OTH INTRAVAGINAL SUPPORT AURE (10/15/2024 9:00 AM CDT) Narrative [facility] DARYL ROBERTSON - 10/15/2024 9:00 AM CDT Mulu Avilez APRN-BC 10/26/2024 6:23 PM Pessary Fitting and Insertion Date/Time: 10/15/2024 9:00 AM Performed by: Mulu Avilez APRN-BC Authorized by: Mulu Avilez APRN-BC Consent: Patient agrees, verbalizes understanding, and wants to proceed: yes Consent given by: Patient Indication: Indication for pessary: uterine prolapse Procedure: Pessary type: Ring w/ support Pessary size: 1 Outcomes: How did patient test pessary?: Ambulation Patient tolerance of procedure: Tolerated well, no immediate complications Pessary maintenance plan: Yes Reviewed by: provider Mulu STALLWORTH PROCEDURE ORDERABLE S Final Result Performing Organization Address [facility] Co de Phone Number [facility] [id number] [address] [place] [address] * MAMMO 3D EJ SCREEN BILAT W OR WO CAD (07/18/2024 10:02 AM SHAPER OPERATOR) Anatomical Region Laterality Modality Breast Bilateral Mammography Impressions 07/22/2024 5:09 PM CDT : No mammographic evidence of malignancy. BI-RADS ASSESSMENT: 1 - Negative RECOMMENDATION: Routine annual screening mammography. Narrative 07/22/2024 5:09 PM CDT EXAM: MAMMO SCRN BILAT 3D EJ W OR WO CAD INDICATION: Screening COMPARISON: 07/18/2023 MAMMO SCRN BILAT 3D EJ W OR WO CAD, 05/26/2022 MAMMO SCRN BILAT 3D EJ W OR WO CAD, 03/04/2021 MAMMO SCRN BILAT 3D EJ W OR WO CAD, 02/06/2020 MAMMO SCRN BILAT 3D EJ W OR WO CAD, and 12/10/2018 MAMMO SCRN BILAT 3D EJ W OR WO CAD BREAST COMPOSITION: The breasts are heterogeneously dense, which may obscure small masses. FINDINGS: RIGHT BREAST: There are no suspicious masses, calcifications, or areas of architectural distortion. LEFT BREAST: There are no suspicious masses, calcifications, or areas of architectural distortion. us Stevenson Dillard MD MAMMO ORDERABLES Final Resul t * CERV/VAG CYTO SCREEN PAP W/HPV (05/12/2024 1:02 PM SHAPER OPERATOR) CLINICAL INFORMATION [facility] Comment:WELL WOMEN EXAM LAST MENSTRUAL PERIOD [facility] [place] Comment:NONE GIVEN PREV PAP: [facility] [place] Comment:NONE GIVEN PREV BX: [facility] [place] Comment:NONE GIVEN SOURCE [facility] [place] Comment:Endocervix ADEQUACY: [facility] [place] Comment: Satisfactory for evaluation. Endocervical/transformation zone component absent. Age and/or menstrual status not provided PAP INTERP [facility] [place] Comment: Cytology Results: Negative for intraepithelial lesion or malignancy. COMMENT (PAP TEST) [facility] [place] Comment: This Pap test has been evaluated with computer assisted technology. PLATE GLASS INSTALLER HELPER: Janice Carrillo Comment: FUNMI PIKE(ASCP) CT Screening location: [place] [address] [place] [address] EXPLANATORY NOTE Que As[facility]Argentina Carrillo Comment: EXPLANATORY NOTE: The Pap is a screening test for cervical cancer. It is not a diagnostic test and is subject to false negative and false positive results. It is most reliable when a satisfactory sample, regularly obtained, is submitted with relevant clinical findings and history, and when the Pap result is evaluated along with historic and current clinical information. HPV E6/E7 Not Detected Not Detected [facility] Comment: Methodology: Sql Consultant-Mediated Amplification This assay detects E6/E7 viral messenger RNA (mRNA) from 14 high-risk HPV types (16,18,31,33,35,39,45,51,52,56,58,59,66,68). Cervical sources are required for HPV testing. If a vaginal source from a patient who has had a total hysterectomy with removal of cervix was submitted, please contact the testing laboratory for alternative testing options. For additional information, please refer to http://education.[employer]/faq/QIF543t0 (This link if provided for information/ educational purposes only.) Test Performed at: [facility] [address] [facility] [place] [address] Berenice COE Genital SWAB OF ENDOCERVIX / Unknown 05/12/2024 1:02 PM SHAPER OPERATOR 05/13/2024 8:20 AM SHAPER OPERATOR Stevenson Dillard MD PATHOLOGY/CYTOLOGY ORDERABLE S Final Result Performing Organization Address City/State/[facility] Co de Phone Number [facility] [phone] [facility] [address] [facility] [place] [address] from Last 3 Months or Most Recently Relevant to Health Maintenance Insurance [facility] CHOICE [id number] RX [employer] Member Subscriber Plan / Payer (Ef fective 2024-Present) Name:Jyoti Magallanes Relation to Subscriber:Self Name:Jyoti Magallanes Subscriber ID:Not on file Payer ID:Not on file Group ID:[id number] Type:RX Commercial Address: [place] Care Teams Parking Lot Spotter Relationship Specialty Start Date End Date Mahnaz Barrientos MD [address] [place] [address] PCP - General Family Practice 02/07/24
--- OUTSIDE RECORDS SUMMARY | 2024-11-16 18:09 | XMS_ITS | Encounter Summary ---
Author Organization [facility] Address [address] [place] [address] Care Team Providers Care Brake Repairer Name Role Phone Mahnaz Barrientos MD Primary Care Provider Reason for Visit * Reason Onset Date Comments Surgery Arrival Time/DLL 11/11/2024 Encounter Details Date Type Department Care Team (Late st Contact Info) Description 11/11/2024 Telephone [facility] [address] [address] [facility] [address] [place] [address] Stevenson Dillard MD [address] [place] [address] Surgery Arrival Time/DLL Social History Tobacco Use Types Packs/Day Years Used Date Smoking Tobacco: Former Alcohol Use Standard Drinks/Week Comments No 0 (1 standard drink = 0.6 oz pur e alcohol) Feeling Safe Answer Date Recorded Are you in a relationship wi th someone who hurts you emotionally and/or physically? 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 Reminded pt no eating, drinking or smoking 8 hours before surgery. Advised Pt to please have your Gatorade finished by 4:30 am. Advised pt a urine sample may also be required before surgery. Advised pt to call the office if they have any questions. She did ask about FMLA paperwork - verified it had been successfully faxed on 10/28/2024 and in her chart. Pt understands and agrees. No further questions. documented in this encounter Plan of Treatment Upcoming Encounters Date Type Department Care Team (Late st Contact Info) Description 12/17/2024 2:15 PM CDT Office Visit [address] [place] [address] Stevenson Dillard MD [address] [facility] [address] [place] [address] 06/15/2025 1:30 PM GROUP LEADER SEMICONDUCTOR PROCESSING Office Visit [place] [address] [facility] [address] [place] [address] Stevenson Dillard MD [address] [facility] [address] [place] [address] 07/17/2025 9:00 AM GROUP LEADER SEMICONDUCTOR PROCESSING Appointment [facility] [address] [facility] [address] [place] [address] Stevenson Dillard MD [address] [facility] [address] [place] [address] documented as of this encounter Visit Diagnoses Not on filedocumented in this encounter Care Teams Brake Repairer Relationship Specialty Start Date End Date Mahnaz Barrientos MD [address] [place] [address] PCP - General Family Practice 02/07/24 documented as of this encounter
--- OUTSIDE RECORDS SUMMARY | 2024-11-16 18:09 | XMS_ITS | Encounter Summary ---
Author Organization [facility] Address [address] [place] [address] Care Team Providers Care Baggage Checker Name Role Phone Lizzeth Kolb MD Primary [...] TOMOSYNTHESIS BI Stevenson Dillard MD [address] [facility] [address] [place] [address] Phone: tel: fax: [facility] [address] [facility] [address] [place] [address] Phone: tel: fax: Referral ID Status Reason Start Date Expiration Date Visits Re quested Visits Authorized [id number] Closed 09/19/2018 10/20/2019 1 1 Encounter Details Date Type Department Care Team (Latest Contact Info) Description 09/19/2018 Ancillary Orders [facility] Pre-Registration [place] CALL TO MAKE APPOINTMENT ONLY [address] [place] [address] Stevenson Dillard MD [address] [phone] Visit for screening mammogram Social History Tobacco Use Types Packs/Day Years Used Date Smoking Tobacco: Former Alcohol Use Standard Drinks/Week Comments No 0 (1 standard drink = 0.6 oz pur e alcohol) Comments No Sex and Gender Information Value Date Recorded Sex Assigned at Not on file 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 Gender Identity Not on file Sexual Orientation Not on file Occupation Industry Job Start Date Job End Date Not on file Not on file Not on file Not on file documented as of this encounter Plan of Treatment Not on file documented as of this encounter Results * MAMMO SCRN BILAT 3D EJ W OR WO CAD (12/10/2018 8:23 AM CDT) Anatomical Region Laterality Modality Breast Bilateral Mammography 12/10/2018 8:23 AM CDT Narrative 12/12/2018 8:52 AM CDT MAMMO SCRN BILAT 3D EJ W OR WO CAD INDICATION FOR EXAMINATION: See Diagnosis COMPARISON: Mammogram dated 08/31/2017, 08/28/2016, 08/19/2015, 05/08/2014, 08/03/2011. Ultrasound dated 11/06/2017, 09/03/2015, 09/04/2014, 08/03/2011. TECHNIQUE: Bilateral 3-D tomosynthesis and C view images of the breast were obtained in the CC and MLO projections. This digital mammogram was also analyzed by the Computer Aided Detection System (CAD), [employer], Version 8.3. BREAST COMPOSITION: Extremely dense which lowers the sensitivity of mammography. FINDINGS: Three asymmetries are seen within the superior right breast from mid to posterior depth. The left breast fibroglandular pattern appears stable; no suspicious abnormality is identified. ASSESSMENT: Incomplete evaluation. Additional imaging is needed. BI-RADS 0. RECOMMENDATIONS: Diagnostic right breast mammogram. Additional imaging of the right breast to include spot compression tomosynthesis in the MLO projection as well as a true lateral image. A right breast ultrasound may be obtained if clinically warranted. [id number] Procedure Note King, Corbin B, MD - 12/12/2018 MAMMO SCRN BILAT 3D EJ W OR WO CAD INDICATION FOR EXAMINATION: See Diagnosis COMPARISON: Mammogram dated 08/31/2017, 08/28/2016, 08/19/2015, 05/08/2014, 08/03/2011. Ultrasound dated 11/06/2017, 09/03/2015, 09/04/2014, 08/03/2011. TECHNIQUE: Bilateral 3-D tomosynthesis and C view images of the breast were obtained in the CC and MLO projections. This digital mammogram was also analyzed by the Computer Aided Detection System (CAD), [employer], Version 8.3. BREAST COMPOSITION: Extremely dense which lowers the sensitivity of mammography. FINDINGS: Three asymmetries are seen within the superior right breast from mid to posterior depth. The left breast fibroglandular pattern appears stable; no suspicious abnormality is identified. ASSESSMENT: Incomplete evaluation. Additional imaging is needed. BI-RADS 0. RECOMMENDATIONS: Diagnostic right breast mammogram. Additional imaging of the right breast to include spot compression tomosynthesis in the MLO projection as well as a true lateral image. A right breast ultrasound may be obtained if clinically warranted. [id number] us Stevenson Dillard MD MAMMO ORDERABLES Final Resul t documented in this encounter Visit Diagnoses Diagnosis Visit for screening mammogram Other screening mammogram Visit for screening mammogram Other screening mammogram documented in this encounter Care Teams Baggage Checker Relationship Specialty Start Date End Date Lizzeth Kolb MD [address] [place] [address] PCP - General Family Practice 05/08/14 documented as of this encounter
--- OUTSIDE RECORDS SUMMARY | 2024-11-16 18:09 | XMS_ITS | Encounter Summary ---
Author Organization [facility] Address [address] [place] [address] Care Team Providers Care Chair Caner Name Role Phone Lizzeth Kolb MD Primary Care Provider [phone] Reason for Referral * Outpatient Services (Routine) - Closed Specialty Diagnoses / Procedures Referred By Calli rodrigues Referred To Contact Diagnoses Mastodynia Procedures MAMMO BREAST US LT Stevenson Dillard MD [address] [place] [phone] Phone: tel: fax: Referral ID Status Reason Start Date Expiration Date Visits Re quested Visits Authorized [id number] Closed 08/03/2011 08/02/2012 1 1 Encounter Details Date Type Department Care Team (Late st Contact Info) Description 08/03/2011 Ancillary Orders [facility]3] OBGYN-[address] [address] Stevenson Dillard MD [address] [place] [phone] Mastodynia Social History Tobacco Use Types Packs/Day Years Used Date Smoking Tobacco: Former Alcohol Use Standard Drinks/Week Comments No 0 (1 standard drink = 0.6 oz pur e alcohol) Comments No Sex and Gender Information Value Date Recorded Sex Assigned at Not on file 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 Female 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 This is her baseline study. She has no family history of breast cancer. COMPARISON(S): None FINDINGS: Bilateral full field images and spot views of the right breast were performed digitally. The breast tissue is extremely dense. There is an underlying nodularity, but no dominant nodule is identified on the right. On the left, there is nodularity in the upper-outer quadrant, which is the area of the patient's discomfort. Ultrasound of this area is recommended. This digital mammogram was also analyzed by the Computer Aided Detection System (CAD), [employer], Version 8.3. ULTRASOUND FINDINGS: In the left upper-outer quadrant, there are are several cysts. The largest is at three o'clock, 6 cm from the nipple, measuring 8 mm in greatest dimension. Two other cysts are in the far posterior tissue and have an appearance similar to the nodularity seen in the superior breast on the MLO view. No findings suspicious for malignancy are identified. CONCLUSION: Cysts shown by ultrasound correspond with the mammographic nodularity on the left as well as the area of pain. No suspicious findings are identified by focused ultrasound of the left breast. No suspicious mammographic findings are identified on the right. The results were discussed with the patient. She was given a results and recommendations letter. Procedure Note Shante Marie MD - 08/03/2011 BILATERAL DIGITAL DIAGNOSTIC MAMMOGRAM AND LEFT BREAST ULTRASOUND HISTORY: Area of pain in the left upper-outer quadrant that has been improving. This is her baseline study. She has no family history of breast cancer. COMPARISON(S): None FINDINGS: Bilateral full field images and spot views of the right breast were performed digitally. The breast tissue is extremely dense. There is an underlying nodularity, but no dominant nodule is identified on the right. On the left, there is nodularity in the upper-outer quadrant, which is the area of the patient's discomfort. Ultrasound of this area is recommended. This digital mammogram was also analyzed by the Computer Aided Detection System (CAD), [employer], Version 8.3. ULTRASOUND FINDINGS: In the left upper-outer quadrant, there are are several cysts. The largest is at three o'clock, 6 cm from the nipple, measuring 8 mm in greatest dimension. Two other cysts are in the far posterior tissue and have an appearance similar to the nodularity seen in the superior breast on the MLO view. No findings suspicious for malignancy are identified. CONCLUSION: Cysts shown by ultrasound correspond with the mammographic nodularity on the left as well as the area of pain. No suspicious findings are identified by focused ultrasound of the left breast. No suspicious mammographic findings are identified on the right. The results were discussed with the patient. She was given a results and recommendations letter. us Stevenson Dillard MD MAMMO ORDERABLES Final Resul t documented in this encounter Visit Diagnoses Diagnosis Mastodynia Mastodynia documented in this encounter Care Teams Chair Caner Relationship Specialty Start Date End Date Lizzeth Kolb MD [address] [place] [address] PCP - General Family Practice 05/08/14 documented as of this encounter
--- OUTSIDE RECORDS SUMMARY | 2024-11-16 18:09 | XMS_ITS | Encounter Summary ---
Author Organization [facility] Address [address] [place] [address] Care Team Providers Care Property Inspector Name Role Phone Lizzeth Kolb MD Primary Care Provider Reason for Referral * Radiology Services (Routine) - Closed Specialty Diagnoses / Procedures Referred By Contac t Referred To Contact Radiology Diagnoses Inconclusive mammography Procedures MAMMO DIAG UNI RIGHT 3D EJ W OR WO CAD MAMMO DIAGNOSTIC UNI RIGHT W OR WO CAD CHG DIAGNOSTIC MAMMOGRAPHY COMPUTER-AIDED DETCJ UNI CHG DIGITAL BREAST TOMOSYNTHESIS UNILATERAL Stevenson Dillard MD [address] [facility] [address] [place] [address] Phone: tel: fax: [facility] [address] [facility] [address] [place] [address] Phone: tel: fax: Referral ID Status Reason Start Date Expiration Date Visits Requested Visits Authorized [id number] Closed Performing Department To Schedule (SGF) 12/12/2018 01/12/2020 1 1 Encounter Details Date Type Department Care Team (Latest Contact Info) Description 12/18/2018 Ancillary Orders [facility] [address] [facility] [address] [place] [address] Stevenson Dillard MD [address] [facility] [address] [place] [phone] Inconclusive mammography Social History Tobacco Use Types Packs/Day Years Used Date Smoking Tobacco: Former Alcohol Use Standard Drinks/Week Comments No 0 (1 standard drink = 0.6 oz pur e alcohol) Comments No Sex and Gender Information Value Date Recorded Sex Assigned at Not on file 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 I would recommend routine screening mammogram in one year. Patient received a result/recommendation letter. [id number] Narrative 12/18/2018 12:23 PM CDT Right diagnostic mammogram 3-D spot ej MLO with digital ML image: 3-D spot ej synthesis MLO imaging of the mid to upper portion of the right breast is presented, to evaluate three asymmetries suggested on the MLO view of recent screening mammogram 12/10/2018. These were only visible on the MLO image. Straight mediolateral digital image is also presented. Breast tissue is quite dense and heterogeneous. However, the additional imaging shows the areas to good advantage. I see no distortion or area of suspicion or change, when the additional imaging is compared with the previous mammograms. I suspect the areas were made to appear more prominent by summation artifact. us Stevenson Dillard MD MAMMO ORDERABLES Final Resul t documented in this encounter Visit Diagnoses Diagnosis Inconclusive mammography Inconclusive mammogram Inconclusive mammography Inconclusive mammogram documented in this encounter Care Teams Property Inspector Relationship Specialty Start Date End Date Lizzeth Kolb MD [address] [place] [address] PCP - General Family Practice 05/08/14 documented as of this encounter
--- OUTSIDE RECORDS SUMMARY | 2024-11-16 18:09 | XMS_ITS | Encounter Summary ---
Author Organization [facility] Address [address] [place] [address] Care Team Providers Care Propeller Tester Name Role Phone Lizzeth Kolb MD Primary Care Provider Reason for Referral * Outpatient Services (Routine) - Closed Specialty Diagnoses / Procedures Referred By Contac t Referred To Contact Radiology Diagnoses Breast mass, left Procedures MAMMO BREAST US LEFT LTD Stevenson Dillard MD [address] [address] Phone: tel: fax: [facility] [address] [address] Phone: tel: fax: Referral ID Status Reason Start Date Expiration Date Visits Re quested Visits Authorized [id number] Closed 10/25/2017 11/25/2018 1 1 Encounter Details Date Type Department Care Team (Late st Contact Info) Description 10/25/2017 Ancillary Orders [facility] [address] [facility] [address] [place] [address] Stevenson Dillard MD [address] [address] Breast mass, left Social History Tobacco Use Types Packs/Day Years Used Date Smoking Tobacco: Former Alcohol Use Standard Drinks/Week Comments No 0 (1 standard drink = 0.6 oz pur e alcohol) Comments No Sex and Gender Information Value Date Recorded Sex Assigned at Not on file 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 No suspicious findings are seen. I would recommend clinical correlation and follow-up with the patient's physician. Unless otherwise clinically indicated, the patient will be due for screening mammogram in September 2018. Patient received a result/recommendation letter. [id number] Narrative 11/06/2017 11:47 AM CDT Left Breast Ultrasound 11/06/2017 HISTORY: The patient is 42 years of age. She had a negative screening mammogram on 08/31/2017. She is here with a palpable lump in the lateral left breast. I reviewed the office visit note dated 10/16/2017 indicating that the patient presented with pain in the left breast and that there was a palpable lump at 3:00 on the left along the lateral edge of the breast. No diagram was submitted. Prior to the ultrasound, I did a limited exam. I marked the area that seemed to correlate with the clinic note. Ultrasound shows dense fibrocystic tissue. An incidental finding is a well-circumscribed anechoic simple cyst measuring 12 x 10 x 17 mm. This is within the palpable area but I do not feel that this represents the palpable lump. The cyst is located at the 3:00 position 9 cm from the nipple. The patient was given a verbal and written report. I would recommend clinical correlation. us Stevenson Dillard MD MAMMO ORDERABLES Final Resul t documented in this encounter Visit Diagnoses Diagnosis Breast mass, left Lump or mass in breast Breast mass, left Lump or mass in breast documented in this encounter Care Teams Propeller Tester Relationship Specialty Start Date End Date Lizzeth Kolb MD [address] [place] [phone] PCP - General Family Practice 05/08/14 documented as of this encounter
--- NOTE | 2024-11-16 18:18 | XRR_ITS ---
PROCEDURE INFORMATION: Exam: XR Abdomen Exam date and time: 11/16/2024 6:28 PM Age: 49 years old Clinical indication: Prior surgery; Surgery date: 3-7 days post-operative; Surgery type: Hysterectomy 11/13/2024; C/O constipation since hysterectomy on 11/13/2024 TECHNIQUE: Imaging protocol: Radiologic exam of the abdomen. Views: 2 Views. Upright and supine views. COMPARISON: CT abdomen wo/w con [id number] 08/03/2023 10:29 AM FINDINGS: Gastrointestinal tract: Multiple small bowel gas fluid levels without evidence of dilatation. Prominent right colonic loop with gas fluid level. Stool visualized throughout the colon to the rectum. Intraperitoneal space: No evidence of free air. Bones/joints: Degenerative changes along the spine. Other findings: Right abdominal surgical clips. XR/XR abdomen min 2V [id number] IMPRESSION: Bowel findings may represent ileus or diarrheal illness, obstruction thought less likely. Consider CT as clinically indicated.
--- NOTE | 2024-11-16 18:33 | W.ED.ABDPA2 ---
HPI - Abdominal Pain General: Chief Complaint: Abdominal Pain Stated Complaint: 3 days post op, impacted, sweating Time Seen by Provider: 11/16/24 18:17 Source: patient Mode of arrival: ambulatory Limitations: no limitations History of Present Illness: 49yo female presents with significant other for evaluation of constipation. Patient reports that she did have a laparoscopic hysterectomy on 11/13/2024 at [facility] in [place]. States that since then she has been having trouble passing stool. She has been using the senna and MiraLAX with no improvement. She did have 2 doses of senna and 3 doses of MiraLAX today as well as prune juice. She has been able to get a little bit of stool out by manually disimpacting herself, but feels as if there is still a lot of stool present. Patient states she is afraid to push too hard due to her surgery. Patient reports that she has never had a problem with constipation previously. She denies any other concerns at this time. Associated Symptoms: Reports constipation; Denies chills, fever(s) and vomiting Related Data Home Medications ?Medication ?Instructions ?Recorded ?Confirmed estradiol 1 mg tablet 1 mg PO DAILY 06/13/24 10/27/24 progesterone micronized 100 mg 100 mg PO QAM 06/13/24 10/27/24 capsule metoprolol tartrate 25 mg tablet 25 mg PO BID 10/27/24 10/27/24 Previous Rx's ?Medication ?Instructions ?Recorded blood sugar diagnostic (Accu-Chek #100 ea 12/18/23 Guide test strips) lancets (Accu-Chek Softclix #100 ea 12/18/23 Lancets) cpap supplies #1 ea 03/05/24 levothyroxine 100 mcg tablet 100 mcg PO DAILY #90 tabs 06/13/24 losartan 100 mg tablet 100 mg PO DAILY #90 tabs 06/13/24 lovastatin 40 mg tablet 40 mg PO QPM #90 tabs 06/13/24 bilateral wrist brace #1 ea 08/19/24 hydrochlorothiazide 12.5 mg tablet See Rx Instructions .Route 08/21/24 .COMPLEX #180 tabs Allergies Allergy/AdvReac Type Severity Reaction Status Date / Time clindamycin Allergy Unknown Unknown Verified 11/16/24 18:11 Review of Systems Const: Denies: fever(s), chills or body aches GI: Reports: constipation; Denies: vomiting PFSH ED PFSH: Medical History Hyperlipidemia Hypothyroidism LIZETTE (obstructive sleep apnea) Hiatal hernia Fatty liver Hepatomegaly Murmur HTN (hypertension) Tachycardia, unspecified Surgical History History of cholecystectomy Family History Grandmother Congestive heart failure (CHF) Father Lung cancer Sister Lung cancer Grandmother Pancreatic cancer Social History Smoking and tobacco/nicotine status: former use of tobacco/nicotine Alcohol intake: never Substance/Drug Use: never Current gender identity: Female Physical Exam Const: COMMON NORMALS: no acute distress, patient oriented x3 and alert GENERAL APPEARANCE: cooperative ORIENTATION/CONSCIOUSNESS: Yes awake OTHER: Patient is sitting upright on the side of the stretcher no acute distress. She is able to give history with no difficulty. She is interactive with exam appropriately. Family is at bedside HENMT: COMMON NORMALS: normocephalic and atraumatic HEAD & SCALP: normocephalic and atraumatic Chest: CHEST: Yes Symmetrical chest wall rise Resp: COMMON NORMALS: normal respiratory effort EFFORT & INSPECTION: Yes able to speak in complete sentences Extremity: COMMON NORMALS: full ROM Neuro: COMMON NORMALS: patient oriented x3 SENSORIUM/ORIENTATION: Yes alert Course ED course: Multiple attempts of manual disimpaction but all were ceased due to patient tolerance. Glycerin suppository completed with no stool production. Manual disimpaction with small amount of stool removed, ceased due to tolerance. Patient fearful of pushing stool out due to recent surgery Manual disimpaction attempted Fleets enema competed Patient able to pass large BM Vital Signs: Vital signs: Vital Signs Temperature 98.2 F 11/16/24 18:08 Pulse Rate 63 11/16/24 20:41 Respiratory Rate 16 11/16/24 20:41 Blood Pressure 126/59 11/16/24 20:41 Pulse Oximetry 98 11/16/24 20:41 Oxygen Delivery Me thod Room Air 11/16/24 20:41 MDM - Abdominal Pain Medical Decision Making 49yo female presents with significant other for evaluation of constipation. Patient reports that she did have a laparoscopic hysterectomy on 11/13/2024 at [facility] in [place]. States that since then she has been having trouble passing stool. Patient is nontoxic in appearance. Vital signs are stable. Proceed with abdominal x-ray for further evaluation of constipation. Stool noted in the rectal vault on independent review of x-ray. Radiology review indicates that the bowel findings may represent an ileus or diarrheal illness, less likely obstruction. Multiple attempts of manual disimpaction as well as use of glycerin suppository unsuccessful. Proceeded to fleets enema and patient was able to pass the stool. Encourage patient to increase her fluid intake and continue to monitor symptoms. Advised to contact her doctor tomorrow with an update and to discuss a recheck. Return precautions provided. Patient states understanding and has no further questions or concerns at this time. Medical Records I reviewed the patient's medical records. Lab Data Labs/Radiology: Radiology Impressions Abdomen X-Ray 11/16/24 18:18 IMPRESSION: Bowel findings may represent ileus or diarrheal illness, obstruction thought less likely. Consider CT as clinically indicated. All radiology interpretation(s) finalized by discharge Discharge Plan Discharge Patient Disposition: Home Clinical Impression: Fecal impaction in rectum Condition: Stable Prescriptions: No Action (DME) Accu-Chek Guide test strips Strip See Rx Instructions .Route Qty: 100 6RF Rx Instructions: As directed (DME) lancets [Accu-Chek Softclix Lancets] Misc See Rx Instructions .Route Qty: 100 6RF Rx Instructions: As directed estradiol 1 mg tablet 1 mg PO DAILY progesterone micronized 100 mg capsule 100 mg PO QAM Rx Instructions: off 7 days; repeat cycle lovastatin 40 mg tablet 40 mg PO QPM Qty: 90 1RF losartan 100 mg tablet 100 mg PO DAILY Qty: 90 1RF levothyroxine 100 mcg tablet 100 mcg PO DAILY Qty: 90 1RF metoprolol tartrate 25 mg tablet 25 mg PO BID (DME) bilateral wrist brace See Rx Instructions .Route .MEDSUPPLY Qty: 1 0RF Rx Instructions: As directed (DME) cpap supplies See Rx Instructions .Route .MEDSUPPLY Qty: 1 0RF Rx Instructions: As directed hydrochlorothiazide 12.5 mg tablet See Rx Instructions .ROUTE .COMPLEX Qty: 180 0RF Dose Instruction: Take 1 tablet by mouth twice daily Rx Instructions: Take 1 tablet by mouth twice daily Discharge Orders: Discharge ED (Routine); Ordered 11/16/24 Ordered By: Manuel Lama Referrals: Mahnaz Barrientos MD [Primary Care Provider, [facility]] Discharge Diet: Usual diet Discharge Activity: Increase activity as tolerated Patient Instructions: Constipation (ED), Opioid Safety, Pain Management, Patient Portal & Carl Instructions Activity Restrictions/Additional Instructions: Continue with increased fluid intake You may also try to increase your fiber intake by eating more fruits and veggies You will likely have loose/liquidy stool tomorrow due to the amount of stool softeners and laxatives that you took today Monitor your symptoms closely Follow-up with your doctor, call tomorrow with an update of symptoms and to discuss a recheck Return to the emergency department if any rapid worsening symptoms and as needed Print Language: Uzbek Coding Level of Care Code ED Chemistry Department Chair for Jeanette Serrano
[2024-11-16] MEDS: ondansetron hcl ODT 4 mg Tab PO (19:59)
[2024-11-16 20:41] VITALS: BP 126/59; PULSE 63; RESP 16; O2SAT 98
[2024-11-16] MEDS: Fleet Enema 133 mL Enema PR (22:30)
[2024-11-16 23:10] VITALS: BP 143/88; PULSE 74; RESP 17; O2SAT 93
== END 2024-11-16 23:13 | disposition home or self-care (01) ==
PROVIDERS: Emergency Provider Nurse Practitioner; PCP Family Medicine
DX: K56.41 Fecal impaction (principal); Z87.891 Personal history of nicotine dependence; E78.5 Hyperlipidemia, unspecified; I10 Essential (primary) hypertension
CPT/HCPCS: 74019; 96372; 99284; J1885; J9999; Q0162

== ENCOUNTER 2025-01-09 12:13 | Outpatient (CLI) | payer OTHER, SELFPAY ==
--- NOTE | 2025-01-09 12:22 | XR_ITS ---
WS: [id number] Exam: XR hip RT 2-3V wo/w pel* [id number] Date/Time of Exam: 01/09/2025 12:22 PM Reason For Exam: right hip pain No fracture. The joint compartments are relatively well-maintained. Small soft tissue calcification near the greater trochanter. Soft tissues are otherwise normal. XR/XR hip RT 2-3V wo/w pel* [id number] IMPRESSION: 1. No fracture or other significant finding.
== END 2025-01-09 12:14 | disposition home or self-care (01) ==
PROVIDERS: PCP Family Medicine; Visit Provider Family Medicine
DX: M25.551 Pain in right hip (principal); I10 Essential (primary) hypertension; E78.5 Hyperlipidemia, unspecified; E11.9 Type 2 diabetes mellitus without complications; E03.9 Hypothyroidism, unspecified; K76.0 Fatty (change of) liver, not elsewhere classified; M25.50 Pain in unspecified joint; R79.82 Elevated C-reactive protein (CRP); G47.33 Obstructive sleep apnea (adult) (pediatric); R93.89 Abnormal findings on diagnostic imaging of other specified body structures
CPT/HCPCS: 73502; 80061; 82533; 83036; 84439; 84443; 85025; 85651; 86003; 86008; 86140; 86376

== ENCOUNTER 2025-01-23 08:59 | Outpatient (CLI) | payer OTHER, SELFPAY ==
--- NOTE | 2025-01-23 09:15 | US_ITS ---
WS: [id number] ULTRASOUND SOFT TISSUES RIGHT hip HISTORY: soft tissue lump above right hip COMPARISON: None available. TECHNIQUE: 2-D and color Doppler imaging is submitted. Ultrasound directed over the RIGHT hip in the area of concern. There is no soft tissue mass identified. Normal lipomatous changes. No interruption of the fascial planes. US/US soft tissue/extremity [id number] IMPRESSION: No soft tissue abnormality by ultrasound over the RIGHT hip.
== END 2025-01-23 09:00 | disposition home or self-care (01) ==
LOC: RAD 08:59
PROVIDERS: PCP Family Medicine; Visit Provider Family Medicine
DX: M25.551 Pain in right hip (principal)
CPT/HCPCS: 76882

== ENCOUNTER 2025-01-23 10:26 | Outpatient (CLI) | payer OTHER, SELFPAY | END 2025-01-23 10:27 | disposition home or self-care (01) | LOC: LAB 10:27 | PROVIDERS: PCP Family Medicine; Visit Provider Family Medicine | DX: Z91.018 Allergy to other foods (principal) | CPT/HCPCS: 86003; 86008 ==

== ENCOUNTER 2025-03-28 18:12 | Emergency (ER) | payer OTHER, SELFPAY ==
[2025-03-28 18:13] VITALS: BP 172/81; PULSE 114; RESP 20; TEMP 36.7; O2SAT 99; BMI 41.5
--- NOTE | 2025-03-28 18:16 | ECG_ITS ---
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 Measurements Intervals [place] Rate: 111 P: 55 MT: 150 QRS: -5 QRSD: 83 T: 30 QT: 330 QTc: 449 Interpretive Statements SINUS TACHYCARDIA POSSIBLE ANTERIOR MYOCARDIAL INFARCTION , PROBABLY OLD [30 ms Q WAVE IN V3/V4, OR R < 0.2 mV IN V4] MILD ST DEPRESSION, CONSIDER ISCHEMIA ABNORMAL ECG No previous ECG available for comparison Electronically Signed On 03-29-2025 15:17:39 MARKETING PROFESSOR by Festus Agarwal M.D. [email or web address]
--- OUTSIDE RECORDS SUMMARY | 2025-03-28 18:24 | XMS_ITS | Encounter Summary ---
Author Organization [facility] Address [address] [place] [address] Care Team Providers Care Process Expert Name Role Phone Lizzeth Kolb MD Primary Care Provider Reason for Referral * Outpatient Services (Routine) - Closed Specialty Diagnoses / Procedures Referred By Calli rodrigues Referred To Contact Radiology Diagnoses Lump or mass in breast Procedures MAMMO BREAST US RIGHT LTD Escobar Everett DO [address] [address] Phone: tel: fax: [facility] [address] [facility] [address] [place] [address] Phone: tel: fax: Referral ID Status Reason Start Date Expiration Date V isits Requested Visits Authorized [id number] Closed F [facility] TO SCHEDULE (SGF) 08/26/2014 09/26/2015 1 1 Encounter Details Date Type Department Care Team (Latest Contact Info) Description 08/26/2014 Ancillary Orders [facility] Pre-Registration [place] CALL TO MAKE APPOINTMENT ONLY [address] [place] [address] Escobar Everett DO [address] [facility] [address] [place] [address] Lump or mass in breast (Primary Dx) Social History Tobacco Use Types Packs/Day Years Used Date Smoking Tobacco: Former Alcohol Use Standard Drinks/Week Comments No 0 (1 standard drink = 0.6 oz pur e alcohol) Comments No Sex and Gender Information Value Date Recorded Sex Assigned at Not on file Legal Sex Female 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
--- OUTSIDE RECORDS SUMMARY | 2025-03-28 18:24 | XMS_ITS | Encounter Summary ---
Author Organization [facility] Address [address] [place] [address] Care Team Providers Care Product Development Name Role Phone Lizzeth Kolb MD Primary Care Provider Reason for Referral * Outpatient Services (Routine) - Closed Specialty Diagnoses / Procedures Referred By Calli rodrigues Referred To Contact Diagnoses Visit for screening mammogram Procedures MAMMO DIGITAL SCREEN BILAT Stevenson Dillard MD [address] [address] Phone: tel: fax: [facility] Pre-Registration [place] [employer] CALL TO MAKE APPOINTMENT ONLY [address] [place] [address] Phone: tel: fax: Referral ID Status Reason Start Date Expiration Date Visits Re quested Visits Authorized [id number] Closed 07/23/2015 08/22/2016 1 1 ADVISOR Encounter Details Date Type Department Care Team (Latest Contact Info) Description 07/23/2015 Ancillary Orders [facility] Pre-Registration [place] [employer] CALL TO MAKE APPOINTMENT ONLY [address] [place] [address] Stevenson Dillard MD [address] [address] Visit for screening mammogram (Primary Dx) Social History Tobacco Use Types Packs/Day Years Used Date Smoking Tobacco: Former Alcohol Use Standard Drinks/Week Comments No 0 (1 standard drink = 0.6 oz pur e alcohol) Comments No Sex and Gender Information Value Date Recorded Sex Assigned at Not on file 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 [id number] Narrative 08/21/2015 2:29 AM CDT REASON FOR [...] by the Computer Aided Detection System (CAD), Talent Flush ImageChecker, Version 8.3. us Stevenson Dillard MD MAMMO ORDERABLES Final Resul t documented in this encounter Visit Diagnoses Diagnosis Visit for screening mammogram- Primary Other screening mammogram Visit for screening mammogram Other screening mammogram documented in this encounter Care Teams Product Development Relationship Specialty Start Date End Date Lizzeth Kolb MD [address] [place] [address] PCP - General Family Practice 05/08/14 documented as of this encounter
--- OUTSIDE RECORDS SUMMARY | 2025-03-28 18:24 | XMS_ITS | Encounter Summary ---
Author Organization [facility] Address [address] [place] [address] Care Team Providers Care Mirror Fabrication Supervisor Name Role Phone Lizzeth Kolb MD Primary [...] TOMOSYNTHESIS BI Stevenson Dillard MD [address] [facility] [address] [place] [address] Phone: tel: fax: [facility] [address] [facility] [address] [place] [address] Phone: tel: fax: Referral ID Status Reason Start Date Expiration Date Visits Re quested Visits Authorized [id number] Closed 11/28/2019 12/28/2020 1 1 Encounter Details Date Type Department Care Team (Latest Contact Info) Description 11/28/2019 Ancillary Orders [facility] Pre-Registration [place] CALL TO MAKE APPOINTMENT ONLY [address] [place] [address] Stevenson Dillard MD [address] [id number] Visit for screening mammogram Social History Tobacco Use Types Packs/Day Years Used Date Smoking Tobacco: Former Alcohol Use Standard Drinks/Week Comments No 0 (1 standard drink = 0.6 oz pur e alcohol) Comments No Sex and Gender Information Value Date Recorded Sex Assigned at Not on file Legal 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
--- OUTSIDE RECORDS SUMMARY | 2025-03-28 18:24 | XMS_ITS | Encounter Summary ---
Author Organization [facility] Address [address] [place] [address] Care Team Providers Care Director Of Casino Name Role Phone Lizzeth Kolb MD Primary Care Provider [phone] Reason for Referral * Outpatient Services (Routine) - Closed Specialty Diagnoses / Procedures Referred By Contac t Referred To Contact Diagnoses Other (abnormal) findings on radiological examination of breast Procedures MAMMO DIGITAL DIAG UNI LEFT Stevenson Dillard MD [address] [facility] [address] [place] [address] Phone: tel: fax: [facility] Pre-Registration [place] CALL TO MAKE APPOINTMENT ONLY [address] [place] [address] Phone: tel: fax: Referral ID Status Reason Start Date Expiration Date Visits Re quested Visits Authorized [id number] Closed 05/15/2014 06/15/2015 1 1 K REPAIR TECHNICIAN Encounter Details Date Type Department Care Team (Latest Contact Info) Description 05/15/2014 Ancillary Orders [facility] [address] [facility] [address] [place] [address] Stevenson Dillard MD [address] [facility] [address] [place] [address] Other (abnormal) findings on radiological examination of breast (Primary Dx) Social History Tobacco Use Types Packs/Day Years Used Date Smoking Tobacco: Former Alcohol Use Standard Drinks/Week Comments No 0 (1 standard drink = 0.6 oz pur e alcohol) Comments No Sex and Gender Information Value Date Recorded Sex Assigned at Not on file Legal 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 Female 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 Gender Identity Not on file Sexual Orientation Not on file Occupation Industry Job Start Date Job End Date Not on file Not on file Not on file Not on file documented as of this encounter Plan of Treatment Not on file documented as of this encounter Results * MAMMO DIGITAL DIAG UNI LEFT (06/05/2014 12:42 PM CLOCK REPAIR TECHNICIAN) Anatomical Region Laterality Modality Breast Left Mammography 06/05/2014 12:1 4 PM CLOCK REPAIR TECHNICIAN Impressions 06/05/2014 2:57 PM CLOCK REPAIR TECHNICIAN IMPRESSION: No persistent area of suspicion or change is identified when the additional images are reviewed and compared. I suspect this was caused by summation artifact. I would recommend routine annual screening mammogram. Patient received a result/recommendation letter. JONAH/melyssa 1232 PM - uploaded from [employer] Standard 06/05/2014 2:57 PM CLOCK REPAIR TECHNICIAN Left Digital Diagnostic Mammogram: Multiple additional digital [...] breast documented in this encounter Care Teams Director Of Casino Relationship Specialty Start Date End Date Lizzeth Kolb MD [address] [place] [address] PCP - General Family Practice 05/08/14 documented as of this encounter
--- OUTSIDE RECORDS SUMMARY | 2025-03-28 18:24 | XMS_ITS | Clinical Summary ---
Author Organization [facility] Address [address] [place] [address] Care Team Providers Care Host/Hostess Ground Name Role Phone Lizzeth Kolb MD Primary [...] on file Legal Sex Female 6:31 AM LONG TERM Gender Identity Not on file Sexual Orientation [...] findings since the prior mammogram(s). us Stevenson Dlilard MD MAMMO ORDERABLES Final Resul t * [...] 12/19/2019 5:58 PM CDT [facility] Comment: Satisfactory for evaluation. Endocervical/transformation zone component present. Age and/or menstrual status not provided PAP INTERP Negative for intraepithelial lesion or malignancy. 12/19/2019 5:58 PM CDT [facility] COMMENT This Pap test has been evaluated with computer assisted technology. 12/19/2019 5:58 PM CDT [facility] CYBER DEFENSE ANALYST: SEE COMMENT 2019 5:58 PM CDT [facility] Comment: BES, CT(ASCP) CT screening location: [place] [address] Administration E[place]red [address] EXPLANATORY NOTE SEE COMMENT 020 5:58 PM CDT [facility] Comment: EXPLANATORY NOTE: The Pap is [...] PM CDT 12/17/2019 12:52 PM CDT Narrative [facility] - 12/19/2019 5:58 PM CDT Performing Organization Information: Site ID: Name: [facility] Address: [facility] Administration [place] [address] Director: Berenice Norman Stevenson Dillard MD PATHOLOGY/CYTOLOGY ORDERABLE S Final Result [facility] [phone] * CERV/VAG CYTO SCREEN PAP RLFX HPV [...] 12/13/2018 3:45 PM CDT [facility] CYBER DEFENSE ANALYST: SEE COMMENT 2018 3:45 PM CDT [facility] Comment: TMK, CT(ASCP) CT screening location: [place] [address] Administration [place]red [address] EXPLANATORY NOTE SEE COMMENT 019 3:45 PM [...] Performing Organization Information: Site ID: SL Name: [facility] Address: [facility] Administration [place] [address] Director: Berenice Norman Stevenson Dillard MD PATHOLOGY/CYTOLOGY ORDERABLE S Final Result [facility] [phone] from Last 3 Months or Most Recently Relevant to Health Maintenance Insurance [employer]WAY(X) EXCHANGE Advance Directives For more information, please contact: [phone] Documents on File Type Date Recorded Patient Surgeon Assistant Expl anation Advance Directive POA 08/24/2014 10:14 AM Care Teams Host/Hostess Ground Relationship Specialty Start Date End Date Lizzeth Kolb MD [address] [place] [address] PCP - General Family Practice 05/08/14
--- NOTE | 2025-03-28 18:25 | W.ED.CHESTPA ---
HPI - Chest Pain General: Chief Complaint: Chest Pain Stated Complaint: CP Time Seen by Provider: 03/28/25 18:23 History of Present Illness: Patient is a 49-year-old female with LIZETTE that presents to the emergency room with chest pain. Patient was cooking dinner, 1745 tonight, and started having palpitations, chest pressure, and association of shortness of breath. Content: This was sudden onset nature. This occurred 15 minutes prior to arrival. This chest pressure on the central sternal area was associated with hyperventilation. This chest pain radiated to her left shoulder. Nuclear medicine stress test 2022: Negative for acute ischemia Echocardiogram 2022: Preserved EF at 55-60%, trace mitral regurgitation Risk factors: Obesity, hyperlipidemia, family history Status post hysterectomy 11/2024 Associated symptoms: Reports dyspnea, nausea and palpitations; Deny abdominal pain, fever(s) or vomiting Related Data Home Medications ?Medication ?Instructions ?Recorded ?Confirmed estradiol 1 mg tablet 1 mg PO DAILY 06/13/24 02/18/25 Previous Rx's ?Medication ?Instructions ?Recorded cpap supplies #1 ea 03/05/24 bilateral wrist brace #1 ea 08/19/24 levothyroxine 100 mcg tablet 100 mcg PO DAILY #90 tabs 12/15/24 losartan 100 mg tablet 100 mg PO DAILY #90 tabs 12/15/24 lovastatin 40 mg tablet 40 mg PO QPM #90 tabs 12/15/24 blood sugar diagnostic (Accu-Chek #100 ea 01/16/25 Guide test strips) lancets (Accu-Chek Softclix #100 ea 01/16/25 Lancets) hydrochlorothiazide 12.5 mg tablet See Rx Instructions .Route 02/11/25 .COMPLEX #180 tabs fluticasone propionate 50 2 spray intranasal BID 7 days #16 02/13/25 mcg/actuation nasal grams spray,suspension (Flonase Allergy Relief) metoprolol tartrate 25 mg tablet 25 mg PO BID #180 tabs 03/09/25 Allergies Allergy/AdvReac Type Severity Reaction Status Date / Time clindamycin Allergy Unknown Unknown Verified 02/18/25 12:29 hydromorphone Allergy Unconscious Verified 03/28/25 18:19 Review of Systems General: Reports: 10 or more systems reviewed and unremarkable except in HPI and below Const: Denies: fever(s) or chills ENMT: Denies: throat pain, ear discharge, change in hearing or nasal congestion Card: Reports: chest pain and palpitations Resp: Reports: dyspnea; Denies: productive cough, non-productive cough or wheezing GI: Reports: nausea; Denies: abdominal pain or vomiting : Denies: flank pain or difficulty voiding Musc: Denies: neck pain or back pain Neuro: Denies: headache(s) or dizziness Psych: Reports: anxiety PFSH ED PFSH: Medical History (Updated 03/28/25 @ 21:21 by HOUSTON Chávez) Hyperlipidemia Hypothyroidism LIZETTE (obstructive sleep apnea) Hiatal hernia Fatty liver Hepatomegaly Murmur HTN (hypertension) Tachycardia, unspecified Surgical History History of cholecystectomy Family History Grandmother Congestive heart failure (CHF) Father Lung cancer Sister Lung cancer Grandmother Pancreatic cancer Social History Smoking and tobacco/nicotine status: never used tobacco/nicotine Alcohol intake: never Substance/Drug Use: never Current gender identity: Female Physical Exam Const: COMMON NORMALS: no acute distress, average body habitus, patient oriented x3, no limitations, healthy appearing, alert and well nourished HENMT: COMMON NORMALS: normocephalic, atraumatic and hearing grossly normal bilaterally HEAD & SCALP: normocephalic and atraumatic Neck/C-Spine: COMMON NORMALS: full ROM, no lymphadenopathy, supple, no meningeal signs and no JVD Chest: COMMONS NORMALS: normal inspection of the chest and normal palpation of entire chest wall Resp: COMMON NORMALS: normal respiratory effort, No retractions, No use of accessory muscles, clear to auscultation bilaterally and percussion normal AUSCULTATION: clear to auscultation bilaterally PERCUSSION: percussion normal Cardio: COMMON NORMALS: no JVD, regular rate, regular rhythm, S1 normal heart sound present, S2 normal heart sound present, No gallops present (Cardio), No clicks present (Cardio), No murmurs present (Cardio), No rub (Cardio) and Peripheral pulses 2+ throughout RATE: regular rate RHYTHM: regular rhythm HEART SOUNDS: S1 normal heart sound present and S2 normal heart sound present PERIPHERAL PULSES: Peripheral pulses 2+ throughout GI: COMMON NORMALS: Normal to inspection, nondistended, normoactive bowel sounds present, Soft to palpation, non-tender, No hepatosplenomegaly present, no masses and no bruits PALPATION: Yes Soft to palpation and Yes No hepatosplenomegaly present : COMMON NORMALS: Yes no CVA tenderness BLADDER/KIDNEY EXAM: Yes no CVA tenderness Back/Pelvis: COMMON NORMALS: no CVA tenderness, thoracic and lumbar spine normal to inspection, no thoracic nor lumbar tenderness and thoraco-lumbar ROM normal Extremity: COMMON NORMALS: normal to inspection, full ROM, capillary refill normal, no joint enlargement and no clubbing, cyanosis or edema Neuro: COMMON NORMALS: patient oriented x3 SENSORIUM/ORIENTATION: Yes alert MENINGEAL SIGNS: Yes no meningeal signs Psych: COMMON NORMALS: mental status grossly normal, Normal thought process present, cooperative, normal affect, speech normal and activity/motor behavior normal SPEECH: Yes normal speech THOUGHT PROCESS: Normal thought process present Skin: COMMON NORMALS: no rashes or lesions noted, no wounds and turgor normal GENERAL SKIN EXAM: no rashes or lesions noted and turgor normal Course Reevaluation(s): Reevaluation #1: Some improvement after nitroglycerin x 1. Aspirin has been given by nursing. Vital Signs: Vital signs: Vital Signs Temperature 98.0 F 03/28/25 18:13 Pulse Rate 66 03/28/25 21:00 Respiratory Rate 16 03/28/25 21:00 Blood Pressure 119/62 03/28/25 21:00 Pulse Oximetry 96 03/28/25 21:00 Oxygen Delivery Me thod Room Air 03/28/25 21:00 MDM - Chest Pain Medical Decision Making Patient is a 49-year-old female that presents today with chest pain, sudden onset, with exertion, just starting to cook at 5:45 PM tonight. This was associated with palpitations, shortness of breath, hyperventilation. Recent cardiac evaluation reviewed on 10/27. Previous echocardiogram, nuclear medicine stress test reviewed. Heart score of 2. Risk factors: Family history in their 60s to 70s, maternal grandmother in her 50s, obesity, hypercholesterol Medical Records I reviewed the patient's medical records. Lab Data I reviewed the patient's lab results. 03/28/25 18:48 03/28/25 18:48 Radiology Impressions Chest X-Ray 03/28/25 18:26 IMPRESSION: No acute findings. Laboratory Results WBC 10.47 10^3/uL (3.29-11.43) 03/28/25 18:48 RBC 4.30 10^6/uL (3.85-5.65) 03/28/25 18:48 Hgb 12.70 g/dL (11.27-16.99) 03/28/25 18:48 Hct 38.0 % (36-47) 03/28/25 18:48 MCV 88.4 fl (85-98) 03/28/25 18:48 MCH 29.5 pg (27-33) 03/28/25 18:48 MCHC 33.4 g/dL (30-55) 03/28/25 18:48 RDW 12.2 % (12.1-15.1) 03/28/25 18:48 Plt Count 303 10^3/cmm (157-399) 03/28/25 18:48 MPV 9.1 fL (7.4-10.4) 03/28/25 18:48 Neut % (Auto) 62.5 % 03/28/25 18:48 Lymph % (Auto) 27.7 % 03/28/25 18:48 [place] % (Auto) 6.4 % 03/28/25 18:48 Eos % (Auto) 2.5 % 03/28/25 18:48 Baso % (Auto) 0.5 % 03/28/25 18:48 Neut # (Auto) 6.55 10^3/uL (1.8-7.7) 03/28/25 18:48 Lymph # (Auto) 2.9 10^3/uL (0.8-4.8) 03/28/25 18:48 [place] # (Auto) 0.7 10^3/uL (0.2-0.9) 03/28/25 18:48 Eos # (Auto) 0.3 10^3/uL (0.0-0.8) 03/28/25 18:48 Baso # (Auto) 0.1 10^3/uL (0.0-0.1) 03/28/25 18:48 Nucleated RBC % (auto) 0 % 03/28/25 18:48 Nucleated RBCs # 0.0 /100WBC 03/28/25 18:48 D-Dimer 0.48 ug/mLFEU (0-0.59) 03/28/25 18:48 Sodium 139 mmol/L (136-145) 03/28/25 18:48 Potassium 3.6 mmol/L (3.5-5.1) 03/28/25 18:48 Chloride 100 mmol/L (98-107) 03/28/25 18:48 Carbon Dioxide 24 mmol/L (22-29) 03/28/25 18:48 Anion Gap 18.6 (5-19) 03/28/25 18:48 BUN 23 mg/dL (6-20) H 03/28/25 18:48 Creatinine 0.8 mg/dL (0.5-0.9) 03/28/25 18:48 GFR Calculation 75.9 mL/min (90-130) L 03/28/25 18:48 Glucose 127 mg/dL (65-115) H 03/28/25 18:48 Calculated Osmolality 293 mOsm/kg (285-295) 03/28/25 18:48 Calcium 8.9 mg/dL (8.5-10.5) 03/28/25 18:48 Total Bilirubin 0.7 mg/dL (0.15-1.2) 03/28/25 18:48 AST 15 U/L (0-32) 03/28/25 18:48 ALT 20 U/L (0-33) 03/28/25 18:48 Alkaline Phosphatase 108 U/L (35-105) H 03/28/25 18:48 Troponin T Baseline 8 ng/L (0-10) 03/28/25 18:48 Troponin T 120 Minute 8.53 ng/L (0-10) 03/28/25 20:35 Delta Troponin T 0.53 ABS# (0-10) 03/28/25 20:35 Total Protein 7.4 g/dL (6.6-8.7) 03/28/25 18:48 Albumin 4.1 g/dL (3.5-5.2) 03/28/25 18:48 Globulin 3.3 g/dL (1.3-4.6) 03/28/25 18:48 All radiology interpretation(s) finalized by discharge ED provider radiology interpretation(s): No acute findings EKG Data EKG 1: Interpretation: Normal sinus rhythm, normal axis, no ST segment elevation Discharge Plan Discharge Patient Disposition: Home Clinical Impression: Atypical chest pain Condition: Stable Prescriptions: No Action estradiol 1 mg tablet 1 mg PO DAILY (DME) bilateral wrist brace See Rx Instructions .Route .MEDSUPPLY Qty: 1 0RF Rx Instructions: As directed (DME) Accu-Chek Guide test strips Strip See Rx Instructions .Route Qty: 100 6RF Rx Instructions: As directed (DME) lancets [Accu-Chek Softclix Lancets] Misc See Rx Instructions .Route Qty: 100 6RF Rx Instructions: As directed fluticasone propionate [Flonase Allergy Relief] 50 mcg/actuation spray,suspension 2 spray intranasal BID 7 Days Qty: 16 0RF Rx Instructions: administer into each nostril (DME) cpap supplies See Rx Instructions .Route .MEDSUPPLY Qty: 1 0RF Rx Instructions: As directed levothyroxine 100 mcg tablet 100 mcg PO DAILY Qty: 90 1RF lovastatin 40 mg tablet 40 mg PO QPM Qty: 90 1RF losartan 100 mg tablet 100 mg PO DAILY Qty: 90 1RF hydrochlorothiazide 12.5 mg tablet See Rx Instructions .ROUTE .COMPLEX Qty: 180 0RF Dose Instruction: Take 1 tablet by mouth twice daily Rx Instructions: Take 1 tablet by mouth twice daily metoprolol tartrate 25 mg tablet 25 mg PO BID Qty: 180 3RF Discharge Orders: Discharge ED (Routine); Ordered 03/28/25 Ordered By: dAia Pack Referrals: Mahnaz Barrientos MD [Primary Care Provider, Family Practice] Discharge Diet: Low Salt Patient Instructions: Noncardiac Chest Pain (ED), Patient Portal & Carl Instructions Activity Restrictions/Additional Instructions: - You 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 You have been screened and evaluated and felt safe for discharge. Health conditions do change or evolve sometimes and as such it is important that you follow up with your Primary Doctor to be re checked, 3-5 days is a general good time frame for follow up. You are always welcome to return to the ED for re assessment if your symptoms are worsening or you have new concerns Print Language: St Helenian Coding Level of Care Code ED Chemical Dependency Therapist for Chg Fwd Heart Score HEART Score Components History: Slightly Suspicous EKG: Normal Age: 45-64 yrs Risk Factors: 1 or 2 Risk Factors Troponin: Baseline Trop <16 ng/L HEART Score RESULT HEART Score: 2
--- OUTSIDE RECORDS SUMMARY | 2025-03-28 18:25 | XMS_ITS | Data Portability ---
Author Organization [facility] Address [address] [id number] Assessment No assessment recorded. Plan of Treatment Reminders Order Date Submit Date Provider Last Modified By Organization Details Last Modified Time Details Appointments None recorded. Lab microalbumi n, urine 2023 024 [employer] [facility], [address] [place] [address], [address], [place], [address], 4 11:25:37 C reactive protein, QN, serum or plasma 2023 024 [email or web address] [facility], [address] [place] [address], [address], [place], [address], 4 08:04:28 uric acid, serum or plasma 2022 023 [employer] [place] [address], [address], [place], [address], 3 05:51:40 C-reactive protein, quantitativ e, serum or plasma 2022 023 [employer] [place] [address], [address], [place], [address], 3 05:51:43 BMP, serum or plasma 2022 023 [facility], [address], [facility] [address], [address], 3 05:51:42 glycohemogl obin, total, blood 2022 023 [email or web address] 40 [facility], [address], [address], [place], [address], 3 08:20:51 Referral None recorded. Procedures None recorded. Surgeries None recorded. Imaging CT, abdomen, w/wo contrast - hx of RUQ swelling w normal LFTs and liver u/s wnl. visible when pt standing but subtle, nothing palpated on exam. strong fam hx of cancers.... 2023 024 [email or web address] 2 [facility], [address] [place], [address], 4 15:46:18 Medication Orders propranolol 20 mg tablet 2023 024 [email or web address] 40 [facility], [address] [place], [address], 4 08:00:19 prednisone 20 mg tablet 2022 023 [facility] [address] [place], [address], 3 11:27:51 Patient TargetsNo targets recorded. Patient Instructions Encounter Date Encounter Id Patient Instructions Last Modified By Organization Details Last Modified Time 07/16/2023 [id number] Learning About Checking Your Blood Sugar Not available 07/16/2023 12:19:21 check A1C in 3 months. Not available 07/16/2023 12:44:19 Reason for Referral None Reported. Results Created Date Observation Date Name Description Value Unit Range Abnormal Flag Note LastModifiedBy Organization Detail LastModifiedTime 12/20/19 23 12/20/2022 LIPID PANEL , STAND DOROTEO cholesterol, total 139 mg/dL <200 normal Not Available [place] [address] [place], [address], 12/20/2022 07:52:07 12/20/19 23 12/20/2022 LIPID PANEL , STAND DOROTEO HDL cholesterol 34 mg/dL > or = 50 low Not Available [facility] [place] [address] [place], [address], 12/20/2022 07:52:07 12/20/19 23 12/20/2022 LIPID PANEL , STAND DOROTEO triglyceride s 110 mg/dL <150 normal Not Available [facility] [place] [address] [place], [address], 12/20/2022 07:52:07 12/20/19 23 12/20/2022 LIPID PANEL [...] is a valid ated novel jose luis ledezma than the Fried mary equat ion in the estim ation of LDL-C . Thao cook SS et al. SILVIA. 2013; 310(1 9): 2061- 2068 (http ://ed ucati on.Qu Salas shah tics. com/f aq/FA Q164) Not Available [facility] [address] [place], [address], 12/20/2022 07:52:07 12/20/1912/20/2022 LIPID PANEL , STAND DOROTEO chol/HDLC ratio 4.1 (calc ) <5.0 normal Not Available [facility] [address] [place], [address], 12/20/2022 07:52:07 12/20/19 23 12/20/2022 LIPID PANEL , STAND DOROTEO non HDL cholesterol 105 mg/dL _(rusty c) <130 normal For patie nts with diabe oleg plus 1 major ASCVD risk facto r, treat ing to a non-H DL-C goal of <100 mg/dL (LDL- C of <70 mg/dL ) is farrah pascual optio n. Not Available [address], [address], 12/20/2022 07:52:07 12/20/1912/20/2022 COMPR EHENS ROSARIO METAB OLIC PANEL glucose 136 mg/dL 65-99 high Fasti ng refer ence inter catherine For someo ne witho ut known diabe oleg, a gluco se value >125 mg/dL indic ates that they may have diabe oleg and this shoul d be confi rmed with a follo w-up test. Not Available [address] [place], [address], 12/20/2022 07:52:07 12/20/1912/20/2022 COMPR EHENS ROSARIO METAB OLIC PANEL urea nitrogen (BUN) 21 mg/dL 7-25 normal Not Available [address], [address], 12/20/2022 07:52:07 12/20/1912/20/2022 COMPR EHENS ROSARIO METAB OLIC PANEL creatinine 0.78 mg/dL 0.50-0 .99 normal Not Available [facility] [address] [place], [address], 12/20/2022 07:52:07 12/20/1912/20/2022 COMPR EHENS ROSARIO METAB OLIC PANEL eGFR 94 mL/mi n/1.7 3m2 > or = 60 normal Not Available [address] [place], [address], 12/20/2022 07:52:07 12/20/19 23 12/20/2022 COMPR EHENS ROSARIO METAB OLIC PANEL BUN/creatini ne ratio SEE NOTE: (calc ) 6-22 Not Repor marysol: BUN and Creat inine are withi n refer ence range . Not Available [address], [address], 12/20/2022 07:52:07 12/20/19 23 12/20/2022 COMPR EHENS ROSARIO METAB OLIC PANEL sodium 137 mmol/ L 135-14 6 normal Not Available [address], [address], 12/20/2022 07:52:07 12/20/1912/20/2022 COMPR EHENS ROSARIO METAB OLIC PANEL potassium 4.1 mmol/ L 3.5-5. 3 normal Not Available [address], [address], 12/20/2022 07:52:07 12/20/19 23 12/20/2022 COMPR EHENS ROSARIO METAB OLIC PANEL chloride 105 mmol/ L 98-110 normal Not Available [address], [address], 12/20/2022 07:52:07 12/20/19 23 12/20/2022 COMPR EHENS ROSARIO METAB OLIC PANEL carbon dioxide 22 mmol/ L 20-32 normal Not Available [address], [address], 12/20/2022 07:52:07 12/20/19 23 12/20/2022 COMPR EHENS ROSARIO METAB OLIC PANEL calcium 8.8 mg/dL 8.6-10 .2 normal Not Available [address], [address], 12/20/2022 07:52:07 12/20/19 23 12/20/2022 COMPR EHENS ROSARIO METAB OLIC PANEL protein, total 6.9 g/dL 6.1-8. 1 normal Not Available [place] [address] [place], [address], 12/20/2022 07:52:07 12/20/1912/20/2022 COMPR EHENS ROSARIO METAB OLIC PANEL albumin 4.0 g/dL 3.6-5. 1 normal Not Available [address], [address], 12/20/2022 07:52:07 12/20/1912/20/2022 COMPR EHENS ROSARIO METAB OLIC PANEL globulin 2.9 g/dL_ (calc ) 1.9-3. 7 normal Not Available [address], [address], 12/20/2022 07:52:07 12/20/1912/20/2022 COMPR EHENS ROSARIO METAB OLIC PANEL albumin/glob ulin ratio 1.4 (calc ) 1.0-2. 5 normal Not Available [place] [address] [place], [address], 12/20/2022 07:52:07 12/20/1912/20/2022 COMPR EHENS ROSARIO METAB OLIC PANEL bilirubin, total 0.6 mg/dL 0.2-1. 2 normal Not Available [address], [address], 12/20/2022 07:52:07 12/20/1912/20/2022 COMPR EHENS ROSARIO METAB OLIC PANEL alkaline phosphatase 76 U/L 31-125 normal Not Available [place] [address] [place], [address], 12/20/2022 07:52:07 12/20/1912/20/2022 COMPR EHENS ROSARIO METAB OLIC PANEL AST 12 U/L 10-35 normal Not Available [address], [address], 12/20/2022 07:52:07 12/20/19 23 12/20/2022 COMPR EHENS ROSARIO METAB OLIC PANEL ALT 15 U/L 6-29 normal Not Available [facility] [address] [place], [address], 12/20/2022 07:52:07 12/20/19 23 12/20/2022 TSH TSH 3.01 mIU/L normal Refer ence Range > or = 20 Years 0.40- 4.50 Pregn shira Range s First trime ster 0.26- 2.66 Secon d trime ster 0.55- 2.73 Third trime ster 0.43- 2.91 Not Available [facility] [address] [place], [address], 12/20/2022 07:52:08 12/20/19 23 12/20/2022 HEMOG LOBIN [...] diabe oleg for child chance. Not Available [facility] [address] [place], [address], 12/20/2022 08:29:36 04/27/20 23 04/28/2023 URIC ACID uric acid 3.4 mg/dL 2.5-7. 0 normal Thera peuti c targe t for gout patie nts: <6.0 mg/dL Not Available [facility] [place] [address] [place], [address], 04/28/2023 05:51:40 04/27/20 23 04/28/2023 BASIC METAB OLIC PANEL glucose 130 mg/dL 65-99 high Fasti ng refer ence inter catherine For someo ne witho ut known diabe oleg, a gluco se value >125 mg/dL indic ates that they may have diabe oleg and this shoul d be confi rmed with a follo w-up test. Not Available [facility] [address] [place], [address], 04/28/2023 05:51:42 04/27/2004/28/2023 BASIC METAB OLIC PANEL urea nitrogen (BUN) 19 mg/dL 7-25 normal Not Available [address], [address], 04/28/2023 05:51:42 04/27/20 23 04/28/2023 BASIC METAB OLIC PANEL creatinine 0.75 mg/dL 0.50-0 .99 normal Not Available [address], [address], 04/28/2023 05:51:42 04/27/20 23 04/28/2023 BASIC METAB OLIC PANEL eGFR 98 mL/mi n/1.7 3m2 > or = 60 normal Not Available [address] [place], [address], 04/28/2023 05:51:42 04/27/20 23 04/28/2023 BASIC METAB OLIC PANEL BUN/creatini ne ratio SEE NOTE: (calc ) 6-22 Not Repor marysol: BUN and Creat inine are withi n refer ence range . Not Available [facility] [place] [address] [place], [address], 04/28/2023 05:51:42 04/27/20 23 04/28/2023 BASIC METAB OLIC PANEL sodium 137 mmol/ L 135-14 6 normal Not Available [address], [address], 04/28/2023 05:51:42 04/27/20 23 04/28/2023 BASIC METAB OLIC PANEL potassium 3.7 mmol/ L 3.5-5. 3 normal Not Available [address], [address], 04/28/2023 05:51:42 04/27/20 23 04/28/2023 BASIC METAB OLIC PANEL chloride 103 mmol/ L 98-110 normal Not Available [address], [address], 04/28/2023 05:51:42 04/27/20 23 04/28/2023 BASIC METAB OLIC PANEL carbon dioxide 24 mmol/ L 20-32 normal Not Available [address], [address], 04/28/2023 05:51:42 04/27/20 23 04/28/2023 BASIC METAB OLIC PANEL calcium 9.2 mg/dL 8.6-10 .2 normal Not Available [address], [address], 04/28/2023 05:51:42 04/27/20 23 04/28/2023 C-JOSSY CTIVE PROTE IN C-reactive protein 27.0 mg/L <8.0 high Not Available [address], [address], 04/28/2023 11:58:05 07/13/19 24 07/14/2023 HEMOG LOBIN [...] Curre ntly, no conse nsus exist s viki jean baptiste use of hemog lobin A1c for diagn osis of diabe oleg for child chance. This test was perfo rmed on the [facility] c8000 platf orm. Pleas e be advis ed that [facility] will move hemog lobin A1c testi ng to the [place] [facility] orm soon. In gener al, direc t mikel rison of the resul ts from diffe rent platf orms is not recom hermilo d. Not Available [facility] [address] [place], [address], 07/14/2023 08:35:32 07/16/19 24 07/17/2023 ALBUM IN, RANDO M URINE W/O CREAT ININE albumin, urine 1.7 mg/dL see note: normal Refer ence Range : Refer ence Range Not estab lishe d Not Available [facility] [address] [place], [address], 07/17/2023 11:25:37 07/16/19 24 07/17/2023 ALBUM IN, [...] a diagn ostic categ ory. Not Available [facility] [address] [address], [place], [address], 07/17/2023 11:25:37 07/16/19 24 07/17/2023 C-JOSSY CTIVE PROTE IN C-reactive protein 22.0 mg/L <8.0 high Not Available [facility] [place] [address] [address], [place], [address], 07/17/2023 11:41:58 07/20/19 24 07/25/2023 GLADYS,I FA, CASCA DE AND RHEUM ATOID ARTHR ITIS PANEL 2, WITH REFLE XES GLADYS screen, ifa POSITI VE negati ve abnormal GLADYS IFA is a first line scree n for detec ting the prese nce of up to appro ximat sarha 150 autoa ntibo dies in vario us [...] amina estrada e refer to http: //[email or web address] [email or web address] stDia gnost ics.c om/fa q/FAQ 177 (This link is being provi ded for infor harriett knowles/ gale kapadia purpo ses only. ) Not Available [facility] [address] [address], [place], [address], 07/25/2023 19:08:30 07/20/19 24 07/25/2023 GLADYS,I FA, CASCA DE AND RHEUM ATOID ARTHR ITIS PANEL 2, WITH REFLE XES rheumatoid factor <14 IU/mL <14 normal Not Available [facility] [address] [place], [address], 07/25/2023 19:08:30 07/20/19 24 07/25/2023 GLADYS,I FA, CASCA DE AND RHEUM ATOID ARTHR ITIS PANEL 2, WITH REFLE XES cyclic citrullinate d peptide (ccp) Ab (IgG) <16 units normal Refer ence Range Negat rosario: <20 Weak Posit rosario: 20-39 Moder ate Posit rosario: 40-59 Stron g Posit rosario: >59 Not Available [facility] [address] [place], [address], 07/25/2023 19:08:30 07/20/19 24 07/25/2023 GLADYS,I FA, [...] marysol pepti de (CCP) . Not Available [address] [place], [address], 07/25/2023 19:08:30 07/20/19 24 07/21/2023 CBC (INCL UDES DIFF/ PLT) white blood cell count 11.3 thous and/u L 3.8-10 .8 high Not Available [place] [address] [place], [address], 07/21/2023 07:06:28 07/20/19 24 07/21/2023 CBC (INCL UDES DIFF/ PLT) red blood cell count 4.08 chucky on/uL 3.80-5 .10 normal Not Available [facility] [address] [place], [address], 07/21/2023 07:06:28 07/20/19 24 07/21/2023 CBC (INCL UDES DIFF/ PLT) hemoglobin 11.7 g/dL 11.7-1 5.5 normal Not Available [address], [address], 07/21/2023 07:06:28 07/20/19 24 07/21/2023 CBC (INCL UDES DIFF/ PLT) hematocrit 35.8 % 35.0-4 5.0 normal Not Available [address], [address], 07/21/2023 07:06:28 07/20/1907/21/2023 CBC (INCL UDES DIFF/ PLT) MCV 87.7 fL 80.0-1 00.0 normal Not Available [address], [address], 07/21/2023 07:06:28 07/20/19 24 07/21/2023 CBC (INCL UDES DIFF/ PLT) MCH 28.7 pg 27.0-3 3.0 normal Not Available [address], [address], 07/21/2023 07:06:28 07/20/1907/21/2023 CBC (INCL UDES DIFF/ PLT) MCHC 32.7 g/dL 32.0-3 6.0 normal Not Available [address], [address], 07/21/2023 07:06:28 07/20/1907/21/2023 CBC (INCL UDES DIFF/ PLT) RDW 13.0 % 11.0-1 5.0 normal Not Available [address], [address], 07/21/2023 07:06:28 07/20/1907/21/2023 CBC (INCL UDES DIFF/ PLT) platelet count 294 thous and/u L 140-40 0 normal Not Available [facility] [place] [address] [address], [place], [address], 07/21/2023 07:06:28 07/20/19 24 07/21/2023 CBC (INCL UDES DIFF/ PLT) MPV 10.3 fL 7.5-12 .5 normal Not Available [address], [address], 07/21/2023 07:06:28 07/20/19 24 07/21/2023 CBC (INCL UDES DIFF/ PLT) absolute neutrophils 6950 cells /uL 1500-7 800 normal Not Available [facility] [address], [address], 07/21/2023 07:06:28 07/20/19 24 07/21/2023 CBC (INCL UDES DIFF/ PLT) absolute lymphocytes 2441 cells /uL 850-39 00 normal Not Available [address], [address], 07/21/2023 07:06:28 07/20/19 24 07/21/2023 CBC (INCL UDES DIFF/ PLT) absolute monocytes 667 cells /uL 200-95 0 normal Not Available [address], [address], 07/21/2023 07:06:28 07/20/19 24 07/21/2023 CBC (INCL UDES DIFF/ PLT) absolute eosinophils 1198 cells /uL 15-500 high Not Available [address], [address], 07/21/2023 07:06:28 07/20/19 24 07/21/2023 CBC (INCL UDES DIFF/ PLT) absolute basophils 45 cells /uL 0-200 normal Not Available [address], [address], 07/21/2023 07:06:28 07/20/19 24 07/21/2023 CBC (INCL UDES DIFF/ PLT) neutrophils 61.5 % normal Not Available [address], [address], 07/21/2023 07:06:28 07/20/19 24 07/21/2023 CBC (INCL UDES DIFF/ PLT) lymphocytes 21.6 % normal Not Available [address], [address], 07/21/2023 07:06:28 07/20/19 24 07/21/2023 CBC (INCL UDES DIFF/ PLT) monocytes 5.9 % normal Not Available [facility] [address], [address], 07/21/2023 07:06:28 07/20/19 24 07/21/2023 CBC (INCL UDES DIFF/ PLT) eosinophils 10.6 % normal Not Available [address], [address], 07/21/2023 07:06:28 07/20/19 24 07/21/2023 CBC (INCL UDES DIFF/ PLT) basophils 0.4 % normal Not Available [address], [address], 07/21/2023 07:06:28 07/20/19 24 07/25/2023 ANTIN UCLEA R ANTIB ODIES TITER AND PATTE RN GLADYS titer 1:320 titer high Refer ence Range <1:40 Negat rosario 1:40- 1:80 Low Antib kuldip Level >1:80 [place] marysol Antib kuldip Level Not Available [facility] [address], [address], 07/25/2023 11:33:14 07/20/19 24 07/25/2023 ANTIN UCLEA [...] Patte rns ([email or web address]- 2017- 0052) Not Available [address] [address] [place], [address], 07/25/2023 11:33:14 07/20/19 24 07/25/2023 TIER 1 DNA (ds) antibody <1 IU/mL normal IU/mL Inter preta tion < or = 4 Negat rosario 5-9 Indet ermin ate > or = 10 Posit rosario Not Available [address] [address] [place], [address], 07/25/2023 17:21:29 07/20/19 24 07/25/2023 TIER 1 sm antibody <1.0 NEG ai <1.0 neg normal Not Available [address] [address] [place], [address], 07/25/2023 17:21:29 07/20/19 24 07/25/2023 TIER 1 sm/network security officer antibody <1.0 NEG ai <1.0 neg normal Not Available [place] [address] [place], [address], 07/25/2023 17:21:29 07/20/19 24 07/25/2023 TIER 1 network security officer antibody <1.0 NEG ai <1.0 neg normal Not Available [address] [address] [place], [address], 07/25/2023 17:21:29 07/20/19 24 07/25/2023 TIER 1 chromatin (nucleosomal ) antibody <1.0 NEG ai <1.0 neg normal Not Available [address] [address] [place], [address], 07/25/2023 17:21:29 07/20/19 24 07/25/2023 TIER 2 sjogren's antibody (ss-A) <1.0 NEG ai <1.0 neg normal Not Available [address] [place], [address], 07/25/2023 17:21:30 07/20/19 24 07/25/2023 TIER 2 sjogren's antibody (ss-B) <1.0 NEG ai <1.0 neg normal Not Available [address] [address] [place], [address], 07/25/2023 17:21:30 07/20/19 24 07/25/2023 TIER 2 scl-70 antibody <1.0 NEG ai <1.0 neg normal Not Available [place] [address] [place], [address], 07/25/2023 17:21:30 07/20/19 24 07/25/2023 TIER 2 giovanni-1 antibody <1.0 NEG ai <1.0 neg normal Not Available [address] [place], [address], 07/25/2023 17:21:30 07/20/19 24 07/25/2023 TIER 3 centromere B antibody <1.0 NEG ai <1.0 neg normal Not Available [address] [place], [address], 07/25/2023 17:21:31 07/20/19 24 07/25/2023 TIER 3 ribosomal P antibody <1.0 NEG ai <1.0 neg normal The [place] does not rule out autoi mmune disea se mynor cteri zed by other autoa ntibo dy speci ficit ies such as rheum atoid arthr itis, autoi mmune hepat itis, prima ry bilia ry cirrh osis, autoi mmune thyro iditi s, [place]'s disea se, perni cious anemi a, autoi mmune neuro pathi es, vascu litis , tobias c disea se and bullo us disea se. Pleas e conta ct your local [facility] at[facility] if you are inter ested in addit ional testi ng. Not Available [facility] [address] [place], [address], 07/25/2023 17:21:31 07/20/19 24 07/25/2023 INTER PRETA TION interpretati on All three negat rosario tiers indic ate the absen ce of detec table antib odies to compo nent loraine oleg consi sting of doubl e stran ded DNA (dsDN A), chrom atin, ribon ucleo prote in (TANK TRUCK MILK RECEIVER) , Beaver /TANK TRUCK MILK RECEIVER (Sm/R ADVERTISEMENT COMPOSITOR), [place] (Sm), SS-A, SS-B, Giovanni-1, Scl-7 0, centr omere B and ribos omal P. A negat rosario resul t shoul d be inter prete d in the edel xt of the clini rusty and labor atory findi ngs. Not Available [facility] [place] [address] [place], [address], 07/25/2023 17:21:31 08/10/19 24 08/11/2023 LIPID PANEL , STAND DOROTEO cholesterol, total 117 mg/dL <200 normal Not Available [facility] [place] [address] [place], [address], 08/11/2023 07:11:03 08/10/19 24 08/11/2023 LIPID PANEL , STAND DOROTEO HDL cholesterol 34 mg/dL > or = 50 low Not Available [facility] [place] [address] [place], [address], 08/11/2023 07:11:03 08/10/19 24 08/11/2023 LIPID PANEL , STAND DOROTEO triglyceride s 121 mg/dL <150 normal Not Available [facility] [place] [address] [place], [address], 08/11/2023 07:11:03 08/10/19 24 08/11/2023 LIPID PANEL [...] calcu lated using the Thao n-Hop kins calcu whitney n, which is a valid ated novel metho d provi ding suzanna r accur acy than the Fried mary equat ion in the estim ation of LDL-C . Thao cook SS et al. SILVIA. 2013; 310(1 9): 2061- 2068 (http ://ed ucati on.Qu Salas Sophie [employer] Juliet. com/f aq/FA Q164) Not Available [facility] [address] [place], [address], 08/11/2023 07:11:03 08/10/19 24 08/11/2023 LIPID PANEL , STAND DOROTEO chol/HDLC ratio 3.4 (calc ) <5.0 normal Not Available [facility] [address] [place], [address], 08/11/2023 07:11:03 08/10/19 24 08/11/2023 LIPID PANEL , STAND DOROTEO non HDL cholesterol 83 mg/dL _(rusty c) <130 normal For patie nts with diabe oleg plus 1 major ASCVD risk facto r, treat ing to a non-H DL-C goal of <100 mg/dL (LDL- C of <70 mg/dL ) is consi dered a thera peuti c optio n. Not Available [facility] [address] [place], [address], 08/11/2023 07:11:03 08/10/19 24 08/11/2023 COMPR EHENS ROSARIO METAB OLIC PANEL glucose 116 mg/dL 65-99 high Fasti ng refer ence inter catherine For someo ne witho ut known diabe oleg, a gluco se value betwe en 100 and 125 mg/dL is consi stent with predi abete s and shoul d be confi rmed with a follo w-up test. Not Available [address] [address] [place], [address], 08/11/2023 07:11:04 08/10/19 24 08/11/2023 COMPR EHENS ROSARIO METAB OLIC PANEL urea nitrogen (BUN) 18 mg/dL 7-25 normal Not Available [facility] [place] [address] [place], [address], 08/11/2023 07:11:04 08/10/19 24 08/11/2023 COMPR EHENS ROSARIO METAB OLIC PANEL creatinine 0.79 mg/dL 0.50-0 .99 normal Not Available [address] [address] [place], [address], 08/11/2023 07:11:04 08/10/19 24 08/11/2023 COMPR EHENS ROSARIO METAB OLIC PANEL eGFR 92 mL/mi n/1.7 3m2 > or = 60 normal Not Available [address] [place] [address] [place], [address], 08/11/2023 07:11:04 08/10/19 24 08/11/2023 COMPR EHENS ROSARIO METAB OLIC PANEL BUN/creatini ne ratio SEE NOTE: (calc ) 6-22 Not Repor marysol: BUN and Creat inine are withi n refer ence range . Not Available [address] [address] [place], [address], 08/11/2023 07:11:04 08/10/19 24 08/11/2023 COMPR EHENS ROSARIO METAB OLIC PANEL sodium 140 mmol/ L 135-14 6 normal Not Available [address] [address] [place], [address], 08/11/2023 07:11:04 08/10/19 24 08/11/2023 COMPR EHENS ROSARIO METAB OLIC PANEL potassium 4.1 mmol/ L 3.5-5. 3 normal Not Available [address], [address], 08/11/2023 07:11:04 08/10/19 24 08/11/2023 COMPR EHENS ROSARIO METAB OLIC PANEL chloride 104 mmol/ L 98-110 normal Not Available [address], [address], 08/11/2023 07:11:04 08/10/19 24 08/11/2023 COMPR EHENS ROS[facility] METAB OLIC PANEL carbon dioxide 24 mmol/ L 20-32 normal Not Available [address], [address], 08/11/2023 07:11:04 08/10/19 24 08/11/2023 COMPR EHENS [facility] METAB OLIC PANEL calcium 9.3 mg/dL 8.6-10 .2 normal Not Available [address], [address], 08/11/2023 07:11:04 08/10/19 24 08/11/2023 COMPR EHENS [facility] METAB OLIC PANEL protein, total 7.3 g/dL 6.1-8. 1 normal Not Available [address], [address], 08/11/2023 07:11:04 08/10/19 24 08/11/2023 COMPR EHENS [facility] METAB OLIC PANEL albumin 4.2 g/dL 3.6-5. 1 normal Not Available [address], [address], 08/11/2023 07:11:04 08/10/19 24 08/11/2023 COMPR EHENS [facility] METAB OLIC PANEL globulin 3.1 g/dL_ (calc ) 1.9-3. 7 normal Not Available [address], [address], 08/11/2023 07:11:04 08/10/19 24 08/11/2023 COMPR EHENS [facility] METAB OLIC PANEL albumin/glob ulin ratio 1.4 (calc ) 1.0-2. 5 normal Not Available [address], [address], 08/11/2023 07:11:04 08/10/19 24 08/11/2023 COMPR EHENS [facility] METAB OLIC PANEL bilirubin, total 1.1 mg/dL 0.2-1. 2 normal Not Available [address], [address], 08/11/2023 07:11:04 08/10/19 24 08/11/2023 COMPR EHENS [facility] METAB OLIC PANEL alkaline phosphatase 90 U/L 31-125 normal Not Available [address], [address], 08/11/2023 07:11:04 08/10/19 24 08/11/2023 COMPR EHENS [facility] METAB OLIC PANEL AST 17 U/L 10-35 normal Not Available [address], [address], 08/11/2023 07:11:04 08/10/19 24 08/11/2023 COMPR EHENS ROSARIO METAB OLIC PANEL ALT 23 U/L 6-29 normal Not Available [address], [address], 08/11/2023 07:11:04 08/10/19 24 08/11/2023 HEPAT ITIS [...] rizat ion reque st form. Not Available [address] [address] [place], [address], 08/11/2023 06:01:48 08/10/19 24 08/11/2023 HEPAT ITIS PANEL (REFL ) hepatitis B surface antibody ql REACTI VE non-re active abnormal Not Available [address] [address] [place], [address], 08/11/2023 06:01:48 08/10/19 24 08/11/2023 HEPAT ITIS PANEL (REFL ) hepatitis B surface antigen NON-RE ACTIVE non-re active normal For addit ional ameliar amina estrada e refer to http: //[employer] caterik n.bucky stdia gnost ics.c om/fa q/FAQ 202 (This link is being provi ded for infor matio nal/ educa judy l purpo ses only. ) Not Available [facility] [address] [address] [place], [address], 08/11/2023 06:01:48 08/10/19 24 08/11/2023 HEPAT ITIS PANEL (REFL ) hepatitis B core Ab total NON-RE ACTIVE non-re active normal For addit ional ameliar amina estrada e refer to http: //[employer] catio n.bucky stdia gnost ics.c om/fa q/FAQ 202 (This link is being provi ded for infor matio nal/ educa judy l purpo ses only. ) Not Available [facility] [address] [address] [place], [address], 08/11/2023 06:01:48 08/10/19 24 08/11/2023 HEPAT ITIS [...] a test for HCV RNA (test code 92620 ) is sugge sted. For addit ional infor harriett cook pleas e refer to http: //[facility] terry cook.que stdia gnost ics.c om/fa q/FAQ 22v1 (This link is being provi ded for infor harriett nal/ educa judy l purpo ses only. ) Not Available [facility] [address] [place], [address], 08/11/2023 06:01:48 08/07/19 24 08/03/2023 CT, abdom en, w/wo contr ast No observ ation record ed. [email or web address] [facility] [address] [place], [address], 08/09/2023 14:36:10 08/24/19 24 imagi ng/di agnos tic resul t No observ ation record ed. [email or web address] Not Available 2023 08:58:45 Result Notes None recorded. Problems Name Problem SNOMED Code Status Onset Date Resolution Date Notes Provider Name and Address Organization Details Recorded Time Cholecys tectomy planned 746549399 Completed 199403/06/2017 Cholecys tectomy - Status is Inactive ; Date: 1994; 03/06/20 17 5:30PM by Shannan Eller CMT, Annotati on/Adden dum; Promoted ; acuity set as *; Not Available [facility] 3 03:12:56 Nicotine dependen ce 43331801 Completed 201603/06/2017 Smoker - Status is Inactive ; 03/06/20 17 5:30PM by Shannan Eller CMT, Annotati on/Adden dum; Promoted ; acuity set as *; Not Available [facility] 3 03:12:58 Fibromya lgia 242166192 Completed 201603/06/2017 fibromya lgia - Status is Inactive ; 03/06/20 17 5:30PM by Shannan Eller CMT, Annotati on/Mulu dum; Promoted ; acuity set as *; Not Available [facility] 3 03:13:01 Hypothyr oidism 04442744 Active 2023 GIOVANNI MUNOZ [facility] 4 11:51:57 Anxiety 22568580 Active 2023 GIOVANNI MUNOZ [facility] 4 11:52:07 Hypergly cemia 95847358 Active 2023 GIOVANNI MUNOZ [facility] 4 11:52:14 Hyperten sive disorder 06086910 Active 2023 GIOVANNI MUNOZ [facility] 4 11:52:22 Allergic rhinitis 65898183 Active 2023 GIOVANNI MUNOZ [facility] 4 11:52:55 Hypercho lesterol emia 98591645 Active 2023 GIOVANNI MUNOZ [facility] 4 11:54:58 Rheumato id arthriti s 43754461 Active 2023 JOANNE HERNANDEZ [facility] 4 16:10:46 Problem Notes None recorded. Procedures Surgical History Date Name Laterality Status Provider Name and Address Organization Details Recorded Time 04/09/20 23 colonoscopy completed GIOVANNI MUNOZ [facility] 04/16/2023 11:00:50 12/13/19 22 Date of Last Pap Smear completed GIOVANNI MUNOZ [facility] 12/26/2022 14:56:09 cholecystectomy completed GIOVANNI MUNOZ [facility] 12/26/2022 14:56:55 Cpap full face mask completed GIOVANNI MUNOZ [facility] 12/26/2022 14:57:10 Imaging Results None recorded. Procedure Notes None recorded. Medical Equipment None Reported. Allergies Allergen ID Allergen Name Allergen Category Reaction Reaction Severity Criticality Documentation Date Start Date Code Code System Note Provider Name and Address Organization Details Recorded Time 35467 phenazopy ridine hydrochlo ride medicatio n Not available Not available Not available 12/09/2022 7 RxNorm Comme nt: Recor ded 06/27 2:06P M by Priti Chen, Offic e Visit ; Bunny gregg; Bhavna doran ce: *; Reaso n: Drug aller gy; ; Not Available [facility] 3 02:24:25 30313 clindamyc in Not available Not available Not available low 07/12/2023 2582 RxNorm throa t burni ng GIOVANNI MUNOZ [facility] 4 12:21:43 Medications Name Sig Start [...] Visit; Not Available Not Available Not Available [facility] Levothyro xine Sodium daily 12/22 completed LB/ak; 69177; Recorded 05/16/19 23 8:55AM by Kb Chen (Authori stefano through Lizzeth Kolb MD), Refill Request; Refill Quantity : 90; Tablet; Not Available Not Available Not Available Accu-Chek Guide test strips USE DIRECTED 2023 active Not Available Not Available Not Avai lable Accu-Chek Guide Glucose Meter USE DIRECTED active Not Available Not Available No t Available losartan potassium (bulk) daily 12/22 completed LB/sudhakar; 88406; Recorded 10/18/19 22 8:16AM by Giovanni Munoz [...] Updated DateTime 4 165.1 cm 42.8 kg/m2 983712. 24 g 97.3 [degF] 98 % 98 % 90 /min 130/80 mm[Hg] GIOVANNI [facility] 4 11:47:14 Date Recorded Body height Body mass index (BMI) Body weight Body temperature Oxygen saturation Oxygen saturation in Arterial blood by Pulse oximetry Heart rate Systolic And Diastolic Provider Name and Address Organization Details Last Updated DateTime 3 165.1 cm 42.1 kg/m2 211104. 87 g 97.4 [degF] 99 % 99 % 78 /min 140/85 mm[Hg] GIOVANNI BLACK [facility] 3 14:53:43 Date Recorded Body height Body mass index (BMI) Body weight Oxygen saturation Oxygen saturation in Arterial blood by Pulse oximetry Heart rate Body temperature Systolic And Diastolic Provider Name and Address Organization Details Last Updated DateTime 3 165.1 cm 43.3 kg/m2 611179. 72 g 99 % 99 % 79 /min 97.9 [degF] 122/72 mm[Hg] Justyna Ramírez [facility] 3 09:48:29 Social History None recorded. Functional Status None recorded. Mental Status None recorded. Family History Relationship Description Onset Age of this Age Resolved Age Notes LastModified by Organization Details LastModified Time Mother Diabetes mellitus [email or web address] Not available 08/2023 11:53:28 Mother Hypertensive disorder Not available 08/2023 11:54:26 Mother Myocardial infarction [email or web address] Not available 08/2023 11:54:32 Mother Hypercholest erolemia [email or web address] Not available 08/2023 11:54:44 Sister Rheumatoid arthritis Not available 08/2023 11:55:28 Notes:cancer: sister. Medical History Condition Response Coronary Artery Disease N Other N Gout N Kidney Stones N Blood Diseases N Hyperthyroidism N Breast Cancer N Blood Transfusion N Depression N Hypothyroidism N Lung Disease N COPD N Defects or Inherited Disease N Developmental or Behavioral Disorders N Breast Problem N Difficulty Swallowing N Anesthesia Complications N Meniere's disease N Anxiety Disorder N Muscle, Joint, or Bone Problems N Vision or Eye Problems N Arthritis N Polyps N Infertility N Cancer N Varicosities N Stroke N Endometriosis N Bladder or Kidney Problems [...] N Heart Disease N Pulmonary Embolism N Pre-Eclampsia N Hypertension Y Chronic Ear Infections N Osteoporosis N Chicken Pox N Autism Spectrum Disorder (ASD) N Thrombophilias N Gynecological History Statement/Question Response Abnormal Pap N Date of Last Pap Smear 12/12/2021 Obstetrics History GPAL:G 0 P 0 0 0 0 Immunizations Vaccine Type Date Status Note Provider Nam e and Address Organization Details Recorded Time Influenza, split virus, trivalent, preservative 0 completed Not Available [facility] 12/09/2022 02:26:15 Influenza, split virus, trivalent, preservative 5 completed Not Available [facility] 12/09/2022 02:26:15 Influenza, split virus, trivalent, preservative 7 completed Not Available [facility] 12/09/2022 02:26:15 Past Encounters Encounter ID Performer Location Encounter Start Date Encounter Closed Date Diagnosis/Indication Diagnosis SNOMED-CT Code Diagnosis ICD10 Code Diagnosis IMO Codes Diagnosis Note [id number] Lizzeth Kolb MD [facility] ([facility]) [address] [place] [address] 12/26/2022 14:15:54 01/01/2023 21:13:27 Impaired fasting glycemia 361682902 R73.01 Non-neoplastic nevus 195 116364 I78.1 monitor Essential hypertension 52898912 I10 controlled . BP was better at cardiologi sts office. Intermitte nt palpitations 479204553 R00.2 full cardio work-up with echo/ekg/h olter - likely just PVCs. I reassured the patient that event lluvia we may not have an explainati on for the palps, she should not worry about them cause the bad things have been ruled out. Adult heal th examination 721883705 Z00.00 [id number] SESAR OTERO PA-C [facility] ([facility]) [address] [place] [address] 04/27/2023 09:08:54 04/27/2023 10:34:09 Gout 97567124 M10.9 [id number] Lizzeth Kolb MD [facility] ([facility]) [address] [place] [address] 07/16/2023 11:35:15 07/16/2023 12:50:04 Diabetes mellitus 43108247 E11.9 NEW dx today. discussed diabetic diet. check sugars fasting and 1 hr after breakfast. C-reactive protein above reference range 7675857192 83184 R79.82 pt would like it rechecked. 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 Right flank pain 8269557 09 R10.9 RUQ bulge/swel ling. I suspect normal variation. Health Concerns Section Related Observation LastModified by Organization Detai ls LastModified Time None Recorded Concern Status LastModified by Organization Details LastModified Time None Recorded Advance Directives Directive None Recorded Payers Insurance Date Sequence Insurance Name Policy Number Policy Negrete Covered Member ID Negrete Member ID Guarantor Name 08/10/2023 1 [place] [id number] Jyoti Magallanes [id number] Jyoti Magallanes Notes Date Note Type Note Provider Name and Address Organization Details Recorded Time 12/26/2022 text/html Abnormal BleedingReported by PatientHPIFor associated symptoms, patient reportsbloatingbut reportsno pelvic pain. For onset/timing, patient reportsevery cycleandirregular. For quality, patient reportslightandheavy.RO S as noted in the HPI weight gain despite watching what she eats..has tried everything. got on the CPAP machine after she saw me last time. since july had not had a period until nowthinks she is going through jonathan-menopause cardio did stress test and ekg, holter monitor, echo...cardio didnt find anything. she just wants to know what is causing her palpitations, she wants to know Lizzeth Kolb MD [address] [place] [address], [phone], [facility] 01/01/2023 14:41:15 04/27/2023 text/html Musculoskeletal PainReported by PatientHPIFor location, patient reportspain radiating to the legs leftbut reportsleft great toe. For quality, patient reportssharp. For severity, patient reportsdriving impairment,worsening,in terferes with sleep, andinterferes with work/school. For duration, patient reportspresent <1 month. For timing, patient reportssudden. For aggravating factors, patient reportsmovement/positio lance. For associated symptoms, patient reportsno fever. For adls affected, patient reportswalking.ROS as noted in the HPI SESAR OTERO PA-C [address] [place] [address], [phone], [facility] 04/27/2023 10:22:07 07/16/2023 text/html ROS as noted in the HPI pt concerned about her CRP being elevated. sister and niece both have RA. still has swelling on her right sidesays we did u/s on it a long time ago but never a CTshe just knows she doesnt feel right. Lizzeth Kolb MD [address] [place] [address], [phone], [facility] 07/16/2023 12:44:33 OBGyn Episode No OBEpisode recorded.
--- OUTSIDE RECORDS SUMMARY | 2025-03-28 18:25 | XMS_ITS | Encounter Summary ---
Author Organization [facility] Address [address] [place] [address] Care Team Providers Care Roll Trucker Name Role Phone Lizzeth Kolb MD Primary Care Provider [phone] Reason for Referral * Outpatient Services (Routine) - Closed Specialty Diagnoses / Procedures Referred By Calli rodrigues Referred To Contact Diagnoses Visit for screening mammogram Procedures MAMMO SCREEN BILAT W OR WO CAD Stevenson Dillard MD [address] [address] Phone: tel: fax: [facility] Pre-Registration [place] CALL TO MAKE APPOINTMENT ONLY [address] [place] [address] Phone: tel: fax: Referral ID Status Reason Start Date Expiration Date Visits Re quested Visits Authorized [id number] Closed 08/09/2016 09/09/2017 1 1 Encounter Details Date Type Department Care Team (Latest Contact Info) Description 08/09/2016 Ancillary Orders [facility] Pre-Registration [employer] [place] CALL TO MAKE APPOINTMENT ONLY [address] [place] [phone] Stevenson Dillard MD [address] [address] Visit for screening mammogram Social History Tobacco Use Types Packs/Day Years Used Date Smoking Tobacco: Former Alcohol Use Standard Drinks/Week Comments No 0 (1 standard drink = 0.6 oz pur e alcohol) Comments No Sex and Gender Information Value Date Recorded Sex Assigned at Not on file 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
--- OUTSIDE RECORDS SUMMARY | 2025-03-28 18:25 | XMS_ITS | Encounter Summary ---
Author Organization [facility] Address [address] [place] [address] Care Team Providers Care Miter Cutter Name Role Phone Lizzeth Kolb MD Primary Care Provider Reason for Referral * Outpatient Services (Routine) - Closed Specialty Diagnoses / Procedures Referred By Calli rodrigues Referred To Contact Diagnoses Inconclusive mammography Procedures MAMMO BREAST US RIGHT LTD Stevenson Dillard MD [address] [address] [facility]: tel[facility] [place] CALL TO MAKE APPOINTMENT ONLY [address] [place] [address] Phone: tel: fax: Referral ID Status Reason Start Date Expiration Date Visits Re quested Visits Authorized [id number] Closed 08/23/2015 09/22/2016 1 1 * Outpatient Services (Routine) - Closed Specialty Diagnoses / Procedures Referred By Calli rodrigues Referred To Contact Diagnoses Inconclusive mammography Procedures MAMMO DIGITAL DIAG UNI RIGHT Stevenson Dillard MD [address] [address] Phone: tel: fax: [employer] Pre-Registration [place] CALL TO MAKE APPOINTMENT ONLY [address] [place] [address] Phone: tel: fax: Referral ID Status Reason Start Date Expiration Date Visits Re quested Visits Authorized [id number] Closed 08/23/2015 09/22/2016 1 1 Encounter Details Date Type Department Care Team (Latest Contact Info) Description 08/23/2015 Ancillary Orders [facility] [address] 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 [id number] Narrative 09/03/2015 5:41 PM CDT REASON FOR [...] by the Computer Aided Detection System (CAD), [employer], Version 8.3. RIGHT BREAST ULTRASOUND: Sonographic evaluation [...] Patient received the result and recommendation letter. [id number] Narrative 09/03/2015 5:41 PM CDT REASON FOR [...] by the Computer Aided Detection System (CAD), [employer]fa[employer], Version 8.3. RIGHT BREAST ULTRASOUND: Sonographic evaluation was carried from the 9-12 o'clock location. There are bands of dense fibrocystic tissue, but no suspicious masses were identified. us Stevenson Dillard MD MAMMO ORDERABLES Final Resul t documented in this encounter Visit Diagnoses Diagnosis Inconclusive mammography- Primary Inconclusive mammogram Inconclusive mammography Inconclusive mammogram Inconclusive mammography Inconclusive mammogram documented in this encounter Care Teams Miter Cutter Relationship Specialty Start Date End Date Lizzeth Kolb MD [address] [place] [phone] PCP - General Family Practice 05/08/14 documented as of this encounter
--- OUTSIDE RECORDS SUMMARY | 2025-03-28 18:25 | XMS_ITS | Encounter Summary ---
Author Organization [facility] Address [address] [place] [address] Care Team Providers Care Bicycle Inspector Name Role Phone Lizzeth Kolb MD Primary Care Provider [phone] Reason for Referral * Outpatient Services (Routine) - Closed Specialty Diagnoses / Procedures Referred By Calli rodrigues Referred To Contact Diagnoses Breast cancer screening Procedures MAMMO SCREEN BILAT W OR WO CAD Stevenson Dillard MD [address] [address] Phone: tel: fax: [facility] Pre-Registration [place] CALL TO MAKE APPOINTMENT ONLY [address] [place] [address] Phone: tel: fax: Referral ID Status Reason Start Date Expiration Date Visits Re quested Visits Authorized [id number] Closed 07/30/2017 08/30/2018 1 1 Encounter Details Date Type Department Care Team (Latest Contact Info) Description 07/30/2017 Ancillary Orders [facility] Pre-Registration [place] CALL TO MAKE APPOINTMENT ONLY [address] [place] [address] Stevenson Dillard MD [address] [address] Breast cancer screening Social History Tobacco Use Types Packs/Day Years Used Date Smoking Tobacco: Former Alcohol Use Standard Drinks/Week Comments No 0 (1 standard drink = 0.6 oz pur e alcohol) Comments No Sex and Gender Information Value Date Recorded Sex Assigned at Not on file 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
--- NOTE | 2025-03-28 18:26 | XRR_ITS ---
PROCEDURE INFORMATION: Exam: XR Chest Exam date and time: 03/28/2025 6:29 PM Age: 49 years old Clinical indication: Pain; Chest pressure; Additional info: Chest pain; Elevated hr; Anxiety TECHNIQUE: Imaging protocol: Radiologic exam of the chest. Views: 1 view. COMPARISON: CR (CHEST, ) 01/05/2021 2:14 AM FINDINGS: Lungs: Unremarkable. No consolidation. Pleural spaces: Unremarkable. No pleural effusion. No pneumothorax. Heart/Mediastinum: Unremarkable. No cardiomegaly. Bones/joints: Unremarkable. XR/XR chest 1V portable [id number] IMPRESSION: No acute findings.
--- OUTSIDE RECORDS SUMMARY | 2025-03-28 18:26 | XMS_ITS | Encounter Summary ---
Author Organization [facility] Address [address] [place] [address] Care Team Providers Care Undercoat Sprayer Name Role Phone Lizzeth Kolb MD Primary Care Provider Reason for Referral * Outpatient Services (Routine) - Closed Specialty Diagnoses / Procedures Referred By Contac t Referred To Contact Radiology Diagnoses Breast mass, left Procedures MAMMO BREAST US LEFT LTD Stevenson Dillard MD [address] [address] Phone: tel: fax: [facility] [address] [address] Phone: tel: fax: Referral ID Status Reason Start Date Expiration Date Visits Re quested Visits Authorized [id number] Closed 10/25/2017 11/25/2018 1 1 Encounter Details Date Type Department Care Team (Late st Contact Info) Description 10/25/2017 Ancillary Orders [facility] [address] [facility] [address] [place] [address] Stevenson Dillard MD [address] [address] Breast mass, left Social History Tobacco Use Types Packs/Day Years Used Date Smoking Tobacco: Former Alcohol Use Standard Drinks/Week Comments No 0 (1 standard drink = 0.6 oz pur e alcohol) Comments No Sex and Gender Information Value Date Recorded Sex Assigned at Not on file 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 Patient received a result/recommendation letter. [id number] Narrative 11/06/2017 11:47 AM CDT Left Breast [...] breast documented in this encounter Care Teams Undercoat Sprayer Relationship Specialty Start Date End Date Lizzeth Kolb MD [address] [place] [id number] PCP - General Family Practice 05/08/14 documented as of this encounter
--- OUTSIDE RECORDS SUMMARY | 2025-03-28 18:26 | XMS_ITS | Encounter Summary ---
Author Organization [facility] Address [address] [place] [address] Care Team Providers Care Institutional Cook Name Role Phone Lizzeth Kolb MD Primary [...] TOMOSYNTHESIS BI Stevenson Dillard MD [address] [facility] [address] [place] [address] Phone: tel: fax: [facility] [address] [facility] [address] [place] [address] Phone: tel: fax: Referral ID Status Reason Start Date Expiration Date Visits Re quested Visits Authorized [id number] Closed 09/19/2018 10/20/2019 1 1 Encounter Details Date Type Department Care Team (Latest Contact Info) Description 09/19/2018 Ancillary Orders [facility] Pre-Registration [place] CALL TO MAKE APPOINTMENT ONLY [address] [place] [address] Stevenson Dillard MD [address] [phone] Visit for screening mammogram Social History Tobacco Use Types Packs/Day Years Used Date Smoking Tobacco: Former Alcohol Use Standard Drinks/Week Comments No 0 (1 standard drink = 0.6 oz pur e alcohol) Comments No Sex and Gender Information Value Date Recorded Sex Assigned at Not on file 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 BREAST COMPOSITION: Extremely dense [...] ultrasound may be obtained if clinically warranted. [id number] Procedure Note King, Corbin B, MD - [...] by the Computer Aided Detection System (CAD), [employer], Version 8.3. BREAST COMPOSITION: Extremely dense which [...] ultrasound may be obtained if clinically warranted. [id number] us Stevenson Dillard MD MAMMO ORDERABLES Final Resul t documented in this encounter Visit Diagnoses Diagnosis Visit for screening mammogram Other screening mammogram Visit for screening mammogram Other screening mammogram documented in this encounter Care Teams Institutional Cook Relationship Specialty Start Date End Date Lizzeth Kolb MD [address] [place] [address] PCP - General Family Practice 05/08/14 documented as of this encounter
--- OUTSIDE RECORDS SUMMARY | 2025-03-28 18:26 | XMS_ITS | Encounter Summary ---
Author Organization [facility] Address [address] [place] [address] Care Team Providers Care Patcher Name Role Phone Lizzeth Kolb MD Primary Care Provider [phone] Encounter Details Date Type Department Care Team (Late st Contact Info) Description 09/19/2002 Emergency [facility] Emergency Department [address] 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
--- OUTSIDE RECORDS SUMMARY | 2025-03-28 18:26 | XMS_ITS | Encounter Summary ---
Author Organization [facility] Address [address] [place] [address] Care Team Providers Care Zinc Plate Cutter Name Role Phone Lizzeth Kolb MD Primary Care Provider Reason for Referral * Outpatient Services (Routine) - Closed Specialty Diagnoses / Procedures Referred By Calli rodrigues Referred To Contact Diagnoses Mastodynia Procedures MAMMO BREAST US LT Stevenson Dillard MD [address] [place] [phone] Phone: tel: fax: Referral ID Status Reason Start Date Expiration Date Visits Re quested Visits Authorized [id number] Closed 08/03/2011 08/02/2012 1 1 Encounter Details Date Type Department Care Team (Late st Contact Info) Description 08/03/2011 Ancillary Orders [facility] OBGYN-[address] [address] Stevenson Dillard MD [address] [place] [address] Mastodynia Social History Tobacco Use Types Packs/Day Years Used Date Smoking Tobacco: Former Alcohol Use Standard Drinks/Week Comments No 0 (1 standard drink = 0.6 oz pur e alcohol) Comments No Sex and Gender Information Value Date Recorded Sex Assigned at Not on file 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 ULTRASOUND FINDINGS: In the left [...] a results and recommendations letter. Procedure Note Shatne Marie MD - 08/03/2011 BILATERAL DIGITAL DIAGNOSTIC [...] by the Computer Aided Detection System (CAD), [employer], Version 8.3. ULTRASOUND FINDINGS: In the left [...] Mastodynia documented in this encounter Care Teams Zinc Plate Cutter Relationship Specialty Start Date End Date Lizzeth Kolb MD [address] [place] [address] PCP - General Family Practice 05/08/14 documented as of this encounter
--- OUTSIDE RECORDS SUMMARY | 2025-03-28 18:26 | XMS_ITS | Encounter Summary ---
Author Organization [facility] Address [address] [place] [address] Care Team Providers Care Stock Checkerer Name Role Phone Lizzeth Kolb MD Primary Care Provider [phone] Encounter Details Date Type Department Care Team (Latest Contact Info) Description 12/12/2018 Ancillary Orders [facility] [address] [facility] [address] [place] [address] Stevenson Dillard MD [address] [facility] [address] [place] [address] Inconclusive mammography Social History Tobacco Use Types Packs/Day Years Used Date Smoking Tobacco: Former Alcohol Use Standard Drinks/Week Comments No 0 (1 standard drink = 0.6 oz pur e alcohol) Comments No Sex and Gender Information Value Date Recorded Sex Assigned at Not on file 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
--- OUTSIDE RECORDS SUMMARY | 2025-03-28 18:26 | XMS_ITS | Clinical Summary ---
Author Organization [facility] tone Address [address] [place] [address] Care Team Providers Care Street Inspector Name Role Phone Mahnaz Barrientos MD Primary Care Provider Allergies Active Allergy Reactions Criticality Noted Date Comments Clindamycin Other (See Comments) High 02/07/2024 Her throat started to burn Medications levothyroxine 100 mcg tablet 12/01/2019 Acti ve lovastatin (MEVACOR) 40 mg tablet Take 40 mg by mouth daily at bedtime. 10/20/2021 Active hydroCHLOROthia zide 25 mg tablet Take 12.5 mg by mouth daily. Active metoprolol tartrate (LOPRESSOR) 25 mg tablet Take 25 mg by mouth 2 times daily. Active estradioL (ESTRACE) 1 mg tablet Take 1 Tablet (1 mg) by mouth daily at bedtime. 90 Tablet 3 05/13/2024 Active losartan (COZAAR) 100 mg tablet Take 100 mg by mouth daily. Active docusate sodium (COLACE) 100 mg capsule Take 1 Capsule (100 mg) by mouth 2 times daily. 60 Capsule 1 11/27/2024 10:20 AM CDT 11/27/2024 Active ibuprofen (MOTRIN) 800 mg tablet Take 1 Tablet (800 mg) by mouth every 8 hours as needed for Pain, Mild. 60 Tablet 1 12/17/2024 8:21 AM CDT 11/27/2024 Active Active Problems Problem Noted Date Diagnosed Date Vaginal cuff cellulitis 11/25/2024 HTN (hypertension) 05/26/2022 Moderate dysplasia of cervix (PRANEETH II) 04/15/2013 AGCUS (atypical glandular ce lls of undetermined significance) on Pap smear 02/28/2013 Papanicolaou smear of cervix with atypical squamous cells cannot exclude high grade squamous intraepithelial lesion (ASC-H) 08/22/2012 Uterine prolapse 03/20/2011 Encounters Date Type Department Care Team Description 03/10/2025 External Device Data STL ABSTRACTION Provider, Abstract 02/24/2025 External Device Data STL ABSTRACTION Provider, Abstract 02/24/2025 External Device Data STL ABSTRACTION Provider, Abstract 02/17/2025 External Device Data STL ABSTRACTION Provider, Abstract 02/03/2025 External Device Data STL ABSTRACTION Provider, Abstract 02/03/2025 External Device Data STL ABSTRACTION Provider, Abstract 01/27/2025 External Device Data STL ABSTRACTION Provider, Abstract 01/20/2025 External Device Data STL ABSTRACTION Provider, Abstract 01/20/2025 External Device Data STL ABSTRACTION Provider, Abstract 01/20/2025 External Device Data STL ABSTRACTION Provider, Abstract 01/08/2025 Results Follow-Up [address] [place] [address] Jaye Brody RN COMPREHENSIVE METABOLIC PANEL, URINE CULTURE, URINALYSIS WITH REFLEX MICROSCOPIC 01/07/2025 External Device Data STL ABSTRACTION Provider, Abstract 01/06/2025 2:45 PM CDT Office Visit [address] [place] [address] Stevenson Dillard MD Postoperative follow-up (Primary Dx); UTI symptoms; Enlarged liver 12/31/2024 External Device Data STL ABSTRACTION Provider, Abstract [...] who hurts you emotionally and/or physically? 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 Gender Identity Not on file Sexual Orientation Not on file Last Filed Vital Signs Vital Sign Reading Time Taken Comments Blood Pressure 140/72 01/06/2025 2:25 PM CDT Pulse 65 11/27/2024 8:08 AM CDT Temperature 36.1 C (97 F) 11/27/2024 4:18 AM CDT Respiratory Rate 16 11/27/2024 8:08 AM CDT Oxygen Saturation 96% 11/27/2024 8:08 AM CDT Inhaled Oxygen Concentration - - Weight 114.8 kg (253 lb) 01/06/2025 2:25 PM CDT Height 165.1 cm (5' 5 ) 01/06/2025 2:25 PM CDT Body Mass Index 42.1 01/06/2025 2:25 PM CDT Plan of Treatment Upcoming Encounters Date Type Department Care Team (Late st Contact Info) Description 06/15/2025 1:30 PM VAC PRESS OPERATOR Office Visit [facility] OBGYN-[address] [place] [address] Stevenson Dillard MD [address] [facility] [address] [place] [address] 07/17/2025 9:00 AM VAC PRESS OPERATOR Appointment [facility] [address] [facility] [address] [place] [address] Stevenson Dillard MD [address] [facility] [address] [place] [address] Health Maintenance Due Date Last [...] 07/19/19 25, 07/18/2023, 05/26/2022, Additional history exists COLORECTAL SCREENING 04/09/2033 04/09/2023, 04/08/20 Colorectal Cancer Screening 04/09/2033 Medical Devices Implanted Type Area House Carpenter Helper Device Identifier Shelf Expiration Date Model / Serial / Lot Hemostatic Surgiflo 8ml W/ Thrombin 2994 - [id number] Implanted:Qty: 1 on 11/13/2024 by Stevenson Dillard MD at [facility] Hemostatic N/A: Abdomen [employer] [id number] 02/10/2026 2994 / / [id number] Procedures Procedure Name Priority Date/Time Associated Diagnosis Comments URINALYSIS W/REFLEX MICROSCOPIC Routine 01/06/2025 4:43 PM CDT UTI symptoms URINE CULTURE Routine 01/06/2025 4:43 PM CDT UTI symptoms COMPREHENSIVE METABOLIC PANEL Routine 01/06/2025 4:03 PM CDT Enlarged liver MAMMO 3D EJ SCREEN BILAT W OR WO CAD Routine 07/18/2024 10:02 AM VAC PRESS OPERATOR Visit for screening mammogram from Last 3 Months or Most Recently Relevant to Health Maintenance Results * URINALYSIS WITH REFLEX MICROSCOPIC (01/06/2025 4:43 PM CDT) COLOR UA YELLOW YELLOW [facility] CLARITY UA CLEAR CLEAR [facility] SPECIFIC GRAVITY UA 1.023 1.001 - 1.035 [facility] PH UA 5.5 5.0 - 8.0 [facility] GLUCOSE UA NEGATIVE NEGATIVE [facility] BILIRUBIN UA NEGATIVE NEGATIVE [facility] KETONES UA NEGATIVE NEGATIVE [facility] BLOOD UA NEGATIVE NEGATIVE [facility] PROTEIN UA NEGATIVE NEGATIVE [facility] NITRITE UA NEGATIVE NEGATIVE [facility] LEUKOCYTE ESTERASE UA NEGATIVE NEGATIVE [facility] Comment: Test Performed at: [facility] [address] [place] [address] [place] Urine URINE SPECIMEN OBTAINED BY CLEAN CATCH PROCEDURE / Unknown 01/06/2025 4:43 PM CDT 01/06/2025 4:45 PM CDT Stevenson Dillard MD URINE ORDERABLES Final Resul t Performing Organization Address City/[facility] Co de Phone Number [facility] [phone] [facility] [address] [place] [address] * URINE CULTURE (01/06/2025 4:43 PM CDT) URINE CULTURE [facility] NOTE [facility] Comment: CULTURE, URINE, ROUTINE Micro Number: [id number] Test Status: Final Specimen Source: Urine Specimen Quality: Adequate Result: Less than 10,000 CFU/mL of single Gram positive organism isolated. No further testing will be performed. If clinically indicated, recollection using a method to minimize contamination, with prompt transfer to Urine Culture Transport Tube, is recommended. Test Performed at: [facility] [address] [place] [address] Berenice Norman MD Urine URINE SPECIMEN OBTAINED BY CLEAN CATCH PROCEDURE / Unknown 01/06/2025 4:43 PM CDT 01/06/2025 4:45 PM CDT us Stevenson Dillard MD MICROBIOLOGY - GENERAL ORDER PRABHJOT Final Result Performing Organization Address City/[facility] Co de Phone Number [facility] [phone] [facility] [address] [address] * COMPREHENSIVE METABOLIC PANEL (01/06/2025 4:03 PM CDT) GLUCOSE 89 65 - 99 mg/dL [facility] Comment: Fasting reference interval BUN 17 7 - 25 mg/dL [facility] CREATININE 0.76 0.50 - 1.03 mg/dL [facility] GFR 95 > OR = 60 mL/min/1. 73m2 [facility] BUN/CREAT RATIO SEE NOTE: 6 - (calc) [facility] Comment: Not Reported: BUN and Creatinine are within reference range. SODIUM 139 135 - 146 mmol/L [facility] POTASSIUM 3.8 3.5 - 5.3 mmol/L [facility] CHLORIDE 104 98 - 110 mmol/L [facility] CO2 26 20 - 32 mmol/L [facility] CALCIUM 9.3 8.6 - 10.4 mg/dL [facility] TOTAL PROTEIN 7.6 6.1 - 8.1 g/dL [facility] ALBUMIN 4.3 3.6 - 5.1 g/dL [facility] GLOBULIN 3.3 1.9 - 3.7 g/dL (calc) [facility] ALBUMIN/GLOBULIN RATIO 1.3 1.0 - 2.5 (calc) [facility] BILIRUBIN TOTAL 0.8 0.2 - 1.2 mg/dL [facility] ALKALINE PHOSPHATASE 87 37 - 153 U/L [facility] AST 15 10 - 35 U/L [facility] ALT 17 6 - 29 U/L [facility] Comment: Test Performed at: [facility] [address] [place] [address] [place] Blood 01/06/2025 4:03 PM CDT 01/06/2025 4:03 PM CDT Stevenson Dillard MD CHEMISTRY ORDERABLES Final R esult [facility] [phone] [facility] [address], [place] [address] * MAMMO 3D EJ SCREEN BILAT W OR WO CAD (07/18/2024 10:02 AM VAC PRESS OPERATOR) Anatomical Region Laterality Modality Breast Bilateral [...] masses, calcifications, or areas of architectural distortion. Stevenson Dillard MD MAMMO ORDERABLES Final Resul t from Last 3 Months or Most Recently Relevant to Health Maintenance Insurance [facility] CHOICE [id number] RX [employer] RX Member Subscriber Plan / Payer (Ef fective 2024-Present) Name:Jyoti Magallanes Relation to Subscriber:Self Name:Jyoti Magallanes Subscriber ID:Not on file Payer ID:Not on file Group ID:[id number] Type:RX Commercial Address: [place], [place] RX [employer] PLANS (INTERNAL) [facility] Internal Plans Advance Directives For more information, please contact: [phone] * Full Code (Latest Code Status on File) Date Activated Date Inactivated Comments 11/25/2024 8:02 AM 11/27/2024 12:[address] Inspector Relationship Specialty Start Date End Date Mahnaz Barrientos MD PCP - General Family Practice 02/07/24
--- OUTSIDE RECORDS SUMMARY | 2025-03-28 18:26 | XMS_ITS | Encounter Summary ---
Author Organization [facility] Address [address] [place] [address] Care Team Providers Care Protection Mgr Name Role Phone Lizzeth Kolb MD Primary Care Provider [phone] Reason for Referral * Radiology Services (Routine) - Closed Specialty Diagnoses / Procedures Referred By Contac t Referred To Contact Radiology Diagnoses Inconclusive mammography Procedures MAMMO DIAG UNI RIGHT 3D EJ W OR WO CAD MAMMO DIAGNOSTIC UNI RIGHT W OR WO CAD CHG DIAGNOSTIC MAMMOGRAPHY COMPUTER-AIDED DETCJ UNI CHG DIGITAL BREAST TOMOSYNTHESIS UNILATERAL Stevenson Dillard MD [address] [facility] [address] [place] [address] Phone: tel: fax: [facility] [address] [facility] [address] [place] [address] Phone: tel: fax: Referral ID Status Reason Start Date Expiration Date Visits Requested Visits Authorized [id number] Closed Performing Department To Schedule (SGF) 12/12/2018 01/12/2020 1 1 Encounter Details Date Type Department Care Team (Latest Contact Info) Description 12/18/2018 Ancillary Orders [facility] [address] [facility] [address] [place] [address] Stevenson Dillard MD [address] [facility] [address] [place] [address] Inconclusive mammography Social History Tobacco Use Types Packs/Day Years Used Date Smoking Tobacco: Former Alcohol Use Standard Drinks/Week Comments No 0 (1 standard drink = 0.6 oz pur e alcohol) Comments No Sex and Gender Information Value Date Recorded Sex Assigned at Not on file 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 Patient received a result/recommendation letter. [id number] Narrative 12/18/2018 12:23 PM CDT Right diagnostic [...] mammogram documented in this encounter Care Teams Protection Mgr Relationship Specialty Start Date End Date Lizzeth Kolb MD [address] [place] [address] PCP - General Family Practice 05/08/14 documented as of this encounter
--- OUTSIDE RECORDS SUMMARY | 2025-03-28 18:26 | XMS_ITS | Encounter Summary ---
Author Organization [facility] Address [address] [place] [address] Care Team Providers Care Make Up Operator Name Role Phone Lizzeth Kolb MD Primary Care Provider Reason for Referral * CT Scan (Routine) - Closed Specialty Diagnoses / Procedures Referred By Calli t Referred To Contact Diagnoses Facial swelling Procedures CT SINUS FACIAL BONES W CONTRAST Greg Paniagua MD [address] [place] [address] Phone: tel: fax: [facility] Pre-Registration [place] CALL TO MAKE APPOINTMENT ONLY [address] [place] [address] Phone: tel: fax: Referral ID Status Reason Start Date Expiration Date V isits Requested Visits Authorized [id number] Closed [facility] TO SCHEDULE (SGF) 02/28/2019 03/29/2019 1 1 Encounter Details Date Type Department Care Team (Late st Contact Info) Description 03/05/[address] [facility] Pre-Registration [place] CALL TO MAKE APPOINTMENT ONLY [address] [place] [address] Greg Paniagua MD [address] [place] [address] Facial swelling Social History Tobacco Use Types Packs/Day Years Used Date Smoking Tobacco: Former Alcohol Use Standard Drinks/Week Comments No 0 (1 standard drink = 0.6 oz pur e alcohol) Comments No Sex and Gender Information Value Date Recorded Sex Assigned at Not on file 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
[2025-03-28 19:07] LABS: Hematocrit 38.0 % (36-47); Hemoglobin 12.70 g/dL (11.27-16.99); Mean Corpuscular HGB Conc 33.4 g/dL (30-55); Mean Corpuscular Hemoglobin 29.5 pg (27-33); Mean Corpuscular Volume 88.4 fl (85-98); Nucleated Red Blood Cells % 0 %; Platelet Count 303 10^3/cmm (157-399); Red Blood Count 4.30 10^6/uL (3.85-5.65); White Blood Count 10.47 10^3/uL (3.29-11.43)
[2025-03-28 19:31] LABS: Troponin(5th) Baseline 8 ng/L (0-10)
[2025-03-28 19:32] VITALS: BP 130/69; PULSE 75; RESP 11; O2SAT 90
[2025-03-28 19:34] LABS: Alanine Aminotransferase 20 U/L (0-33); Albumin Level 4.1 g/dL (3.5-5.2); Alkaline Phosphatase 108 U/L (35-105); Anion Gap 18.6 (5-19); Aspartate Amino Transferase 15 U/L (0-32); Blood Urea Nitrogen 23 mg/dL (6-20); Calcium 8.9 mg/dL (8.5-10.5); Carbon Dioxide 24 mmol/L (22-29); Chloride 100 mmol/L (98-107); Globulin 3.3 g/dL (1.3-4.6); Glucose 127 mg/dL (65-115); Osmolality Calculated 293 mOsm/kg (285-295); Potassium 3.6 mmol/L (3.5-5.1); Sodium 139 mmol/L (136-145); Total Protein 7.4 g/dL (6.6-8.7)
[2025-03-28 20:12] VITALS: BP 137/77; PULSE 72; RESP 24; O2SAT 95
[2025-03-28 20:49] VITALS: BP 137/75; PULSE 76; RESP 12; O2SAT 95
--- NOTE | 2025-03-28 20:52 | ECG_ITS ---
[facility] Test Date: 2025-03-28 Pat Name: Jyoti Magallanes Department: Room: Gender: Female Quality Auditor: : 1975 Requested By: Adia Pack Order Number: [id number] Kenton MD: Festus Agarwal M.D. Measurements Intervals [place] Rate: 67 P: 33 WI: 167 QRS: 3 QRSD: 92 T: -2 QT: 396 QTc: 418 Interpretive Statements SINUS RHYTHM MILD ST ABNORMALITY POSSIBLE ANTERIOR INFARCTION, PROBABLY OLD Compared to ECG 03/28/2025 18:16:50 Sinus tachycardia no longer present Electronically Signed On 03-29-2025 16:16:26 ASSOCIATE TEAM PHYSICIAN by Festus Agarwal M.D. [email or web address]
[2025-03-28 21:00] VITALS: BP 119/62; PULSE 66; RESP 16; O2SAT 96
[2025-03-28 21:05] LABS: Troponin 5 2HR 8.53 ng/L (0-10); Troponin 5 2HR Delta 0.53 ABS# (0-10)
[2025-03-28 21:39] VITALS: BP 119/62; PULSE 69; RESP 17; O2SAT 95
== END 2025-03-28 21:41 | disposition home or self-care (01) ==
PROVIDERS: Emergency Provider Physician Assistant; PCP Family Medicine
DX: R07.89 Other chest pain (principal); E78.5 Hyperlipidemia, unspecified; I10 Essential (primary) hypertension
CPT/HCPCS: 36415; 71045; 80053; 84484; 85025; 85378; 93005; 99285; J9999